=== PATIENT | female | born 1950 | race Caucasian/White ===

== ENCOUNTER 2018-02-24 15:23 | Observation (INO) | payer OTHER, MEDICARE, SELFPAY ==
[2018-02-24] VITALS (18 sets, daily range): BP systolic 73–136; BP diastolic 35–69; PULSE 67–85; RESP 16–20; TEMP 36.5–36.8; O2SAT 94–100; BMI 27.3; BMI 25.4; BMI 25.5
--- NOTE | 2018-02-24 15:39 | EKG12_ITS ---
Test Reason : CP Blood Pressure : / mmHG Vent. Rate : 085 BPM Atrial Rate : 085 BPM P-R Int : 172 ms QRS Dur : 102 ms QT Int : 398 ms P-R-T Axes : 068 030 055 degrees QTc Int : 473 ms Sinus rhythm with frequent Premature ventricular complexes Nonspecific T wave abnormality Prolonged QT Abnormal ECG Confirmed by JUDY LUO, GABRIELLE ([id number]), supervising film or videotape editor MEJIA MAK ([id number] on 02/28/2018 2:47:10 PM Referred By: SOFIA/LA Confirmed By:GABRIELLE KIM MD
--- NOTE | 2018-02-24 15:41 | RAD_ITS ---
STUDY: X-RAY CHEST REASON FOR EXAM: Female, 67 years old. Acute chest pain TECHNIQUE: Single AP portable view of the chest. COMPARISON: 2011 FINDINGS: EKG leads overlie the chest The lungs are clear and expanded. There is no demonstrated pleural abnormality. Normal size heart. Normal mediastinum and kaitlin. Normal visualized pulmonary arteries. Normal visualized aortic arch and descending thoracic aorta. Normal visualized thoracic spine. Normal visualized ribs, clavicles, and shoulders. There is no demonstrated abnormality of the visualized soft tissue structures of the upper abdomen. RAD/Chest 1 View (Portable) IMPRESSION: Normal x-ray examination of the chest. Electronically Signed: Tonny Van MD at 17:02 EST , Service support ,
--- NOTE | 2018-02-24 15:42 | ED.VISSUMM ---
- ER Visit Summary Date of Service: 02/24/18 Chief Complaint: [Chest pain] History of Present Illness: The patient is a 67 F [presents to the emergency department complaint of chest pain that started about an hour ago. 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 Patient went outside and vomited and then developed pressure in her chest. EMS was called who gave her aspirin and a nitro which seemed to resolve her pain initially. On arrival the emergency department patient states that the pain starting to come back and she feels it more underneath her left armpit. She denies any radiation to the neck or jaw. Denies any abdominal pain currently. Patient states that she has had some recent illness and that she was vomiting 3 days ago and yesterday had diarrhea. Patient denies any recent travel or surgery. She has no cardiac history. Patient has a history of high cholesterol no other medical problems.] Physical Examination: [HEENT-PERRLA, EOMI. Cranial nerves II through XII grossly intact. TMs clear. Mucous membranes moist. No adenopathy. Cardiovascular-regular rate and rhythm without murmur or ectopy Lungs-clear to auscultation, chest wall stable without crepitus or subcu emphysema Abdomen-normoactive bowel sounds, soft, nontender, no rebound or rigidity, no peritoneal signs. Extremities-intact ?4, normal range of motion, normal pulses, atraumatic] Test Results: [EKG obtained arrival shows sinus rhythm with a ventricular rate of 85 bpm with some nonspecific ST changes as well as occasional PVCs noted. Patient had a prolonged QT noted.] CBC with differential was normal. Chemistries were normal. LFTs were normal. Lipase was 111. Troponin was less than 0.015. D-dimer was slightly elevated 0.50. Lactate was normal at 0.8. Chest x-ray was unremarkable. CTA of the chest showed no PE or dissection. CT scan of the abdomen pelvis with IV contrast showed an ileus with some dilated hepatic and dilated pancreatic ducts which may be related to prior cholecystectomy. Patient was noted to have an ileus. Emergency Department Course and Treatment: [Patient initially medicated with morphine and Zofran. She continued complaint of pain and repeat EKG obtained showed normal sinus rhythm with nonspecific ST changes and is unchanged from the first EKG. Patient continues to complain of nausea and intermittent discomfort in her abdomen and her chest both.] Treatment Plan: [Admit for further workup and evaluation] Disposition: [Admit] Impression: [Chest pain-etiology uncertain Ileus] This note was generated with [employer] dictation software. It may contain incorrect words, spelling, and punctuation that were not noted in review of the chart prior to signing ED Disposition - Plan for ED Patient: Chief Complaint: Chest Pain Referrals: Shimon Potts MD [Primary Care Provider] -
[2018-02-24] MEDS: 0.9% Normal Saline 1,000 ML 150 ML IV (15:50)
[2018-02-24 16:06] LABS: Absolute Lymphocyte Count 1.08 X10^3/ul (0.83-4.51); Absolute Neutrophil Count 7.2 X10^3/uL (2.0-7.7); Basophil# 0.02 X10^3/uL; Basophil% 0.2 % (0-1); Eosinophil# 0.05 X10^3/uL; Eosinophils% 0.5 % (0-5); Hematocrit 40.2 % (37-47); Hemoglobin 13.3 g/dl (12.0-15.0); Lymphocyte # 1.08 X10^3/ul (4.0); Lymphocyte % 11.8 % (19-41); Mean Corp Hgb Conc 33.1 g/gl (32-36); Mean Corpuscular Hgb 30.9 pg (27.0-32.0); Mean Corpuscular Volume 93.3 fL (81-99); Mean Platelet Vol. 10.2 fl (6.2-12.0); Monocyte# 0.82 X10^3/uL; Neutrophil # 7.15 X10^3/uL (2.7-7.7); Neutrophil % 78.3 % (47-70); Platelet Count 304 K/mm3 (150-450); RBC Distribution Width CV 12.2 % (11.6-14.6); Red Blood Count 4.31 M/mm3 (4.2-5.4); White Blood Count 9.1 K/mm3 (4.4-11.0)
[2018-02-24 16:07] LABS: POSITIVE COUNT NO; POSITIVE DIFFERENTIAL NO; POSITIVE MORPHOLOGY NO
--- NOTE | 2018-02-24 16:07 | EKG12_ITS ---
Test Reason : REPEAT-CP Blood Pressure : / mmHG Vent. Rate : 085 BPM Atrial Rate : 085 BPM P-R Int : 164 ms QRS Dur : 102 ms QT Int : 398 ms P-R-T Axes : 073 034 055 degrees QTc Int : 473 ms Sinus rhythm with Premature supraventricular complexes and with occasional Premature ventricular comp lexes Nonspecific T wave abnormality Prolonged QT Abnormal ECG Confirmed by JUDY LUO, GABRIELLE ([id number]), food editor MEJIA MAK ([id number] on 02/28/2018 2:47:28 PM Referred By: SOFIA Confirmed By:GABRIELLE KIM MD
[2018-02-24] MEDS: Nitroglycerin Oint 1 INCH PACKET TRANSDERM. (16:11)
[2018-02-24 16:17] LABS: Anion Gap 9 (5-15); BUN 17 mg/dL (7-18); BUN/Creat Ratio 21.9 RATIO (10-20); Calcium,Total 8.9 mg/dL (8.5-10.1); Chloride 106 mmol/L (98-107); Creatinine, Serum 0.78 mg/dL (0.55-1.02); EST Glomerular Filtration Rate 79 mL/min (>60); Est Glom Filt Rate - Afr Amer 96 mL/min (>60); Estimated Creatinine Clearance 69.93 ml/min; Glucose 94 mg/dL (74-106); Lipase 111 U/L (73-393); Potassium 3.9 mmol/L (3.5-5.1); Sodium Level 140 mmol/L (136-145)
[2018-02-24] MEDS: Morphine 4 MG/ML Syringe IV (16:18)
[2018-02-24] MEDS: Ondansetron 4 MG/2 ML Vial IV (16:19)
--- NOTE | 2018-02-24 16:28 | CT_ITS ---
STUDY: CTA CHEST REASON FOR EXAM: Female, 67 years old. Sudden onset of chest and abdominal pain RADIATION DOSAGE (If Supplied By Facility): CTDIvol = ( 14.19 ) mGy, DLP = ( 1130.84 ) mGycm TECHNIQUE: The examination was performed with the intravenous administration of 75mL ml of Isovue 370 contrast material. Post-processing of the angiographic images was performed, with multiplanar reformation and 3D reconstruction. Individualized dose optimization techniques were used for this CT. COMPARISON: None. FINDINGS: Normal enhancement of the main pulmonary artery and right and left pulmonary arteries. Normal enhancement of the bilateral peripheral pulmonary arteries. There is no demonstrated pulmonary embolism. Normal thoracic aorta and visualized great vessels. There is no demonstrated aortic dissection. Normal heart and pericardium. Normal mediastinum. Normal hilar regions. Normal visualized trachea and bronchi. The lungs are well expanded. Chronic interstitial changes in both lung park with dependent atelectasis. No superimposed acute pulmonary process. Normal pleura. Normal chest wall structures. There are degenerative changes of thoracic spine. Normal visualized upper abdomen. CT/CTA Chest W/WO Contrast IMPRESSION: No demonstrated PE, or thoracic aortic aneurysm or dissection Chronic interstitial changes in both lung park with dependent atelectasis. No organized infiltrate or effusion Electronically Signed: Tonny Van MD at 17:34 EST , Service support ,
--- NOTE | 2018-02-24 16:29 | CT_ITS ---
STUDY: CT ABDOMEN AND PELVIS WITH CONTRAST REASON FOR EXAM: Female, 67 years old. Sudden onset of chest and abdominal pain RADIATION DOSAGE (If Supplied By Facility): CTDIvol = ( 14.19 ) mGy, DLP = ( 1130.84 ) mGycm TECHNIQUE: Transaxial images were obtained from the dome of the diaphragm to the symphysis pubis without oral contrast. 75mL ml of Isovue 370 contrast was administered. Sagittal and coronal images were reconstructed. Individualized dose optimization techniques were used for this CT. COMPARISON: None. FINDINGS: Liver shows no discrete lesion. Previous cholecystectomy. There is intra and extrahepatic biliary dilatation as well as mild dilatation of the pancreatic duct. However, there is no discrete lesion within the head of the pancreas. The amount of dilatation of the biliary tree could be explained by the previous cholecystectomy. However, if the patient is jaundiced or has elevated bilirubin, a lesion in the head of pancreas or in the ampulla of Vater is to be excluded. MRCP could be used for evaluation.. Normal spleen. No discrete lesion noted within the pancreas or is no peripancreatic inflammation. Normal bilateral adrenal glands. Normal right kidney. Normal left kidney. There is a simple 1.5 cm right renal cyst Normal visualized stomach. Multiple nondistended fluid-filled small bowel loops are noted consistent with ileus. There are multiple colonic diverticula consistent with diverticulosis. The appendix is visualized and appears normal. Appendix best seen on coronal recon image 36. Normal abdominal aorta. Normal inferior vena cava. There are scattered subcentimeter mesenteric and retroperitoneal lymph nodes. Normal urinary bladder. Normal abdominal wall. There are diffuse degenerative changes of the visualized lumbar spine, and pelvis. There is a grade 1 spondylolisthesis at L4-5. CT/Abdomen/Pelvis W IV Cont ONLY IMPRESSION: There has been a previous cholecystectomy. However, there is a significant amount of intra and extrahepatic biliary dilatation. This may be due to the previous cholecystectomy but if the patient is jaundiced or has elevated bilirubin a lesion in the head of the pancreas or ampulla of Vater is to be excluded. MRCP could be performed for evaluation. On coronal recon image 49/111 there is abrupt cut off of the common bile duct at the ampulla of Vater. There are scattered subcentimeter mesenteric and retroperitoneal lymph nodes Colonic diverticulosis 1.5 cm right renal cyst Normal appendix visualized. Degenerative bony changes Electronically Signed: Tonny Van MD at 17:40 EST , Service support ,
[2018-02-24] MEDS: Metoclopramide 10 MG/2 ML Vial IV (17:41)
[2018-02-24 18:09] LABS: Lactic Acid 0.8 mmol/L (0.4-2.0)
[2018-02-24 18:15] LABS: AST(SGOT) 27 U/L (15-37); Alanine Aminotransfer ALT/SGPT 34 U/L (13-56); Albumin, Serum 3.9 g/dL (3.2-5.0); Alkaline Phosphatase 65 U/L (45-117); Bilirubin, Direct 0.11 mg/dL (0.00-0.30); Globulin 3.4 g/dL (2.2-4.2); Protein, Total 7.3 g/dL (6.4-8.2)
--- NOTE | 2018-02-24 18:26 | PCM.HP.STD ---
<Sofya Ruiz - Last Filed: 02/24/18 18:49> Problem List (1) Chest pain Status: Acute History of Present Illness Date of Admission: 02/24/18 Chief Complaint: Chest pain. The patient is a 67 year old F who presents emergency room due to chest pain. 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 She then reports she developed nausea and vomiting, diaphoresis. Chest pain located across her chest extending to left breast area. She denies radiation of pain to neck or arm. Denies shortness of breath. She denies past medical history. She does report her mother and father both had heart disease with CABG in their 60s. Denies history of tobacco use. Past Medical History Allergies No Known Allergies Allergy (Verified 02/24/18 15:29) Home Medications: Ambulatory Orders Medication Instructions Recorded Multivitamins,Therapeutic 1 tablet PO DAILY 07/20/13 [Multivitamin] Caltrate 1 tab PO DAILY 02/24/18 L. 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 Denies: Edema, Palpitations, Syncope Respiratory: Denies: Cough, Shortness of breath at rest, Sputum production Gastrointestinal: Reports: Nausea, Vomiting. Denies: Abdominal Pain Genitourinary: Denies: Dysuria Musculoskeletal: Denies: Joint Pain, Joint Tenderness Skin: Denies: Rash, Wounds Neurological: Denies: Numbness, Tingling, Focal weakness Psychiatric: Denies: Anxiety, Depression, Homicidal Ideations, Suicidal Ideations Hematologic/ Lymphatic: Denies: Easy Bruising, Easy Bleeding VTE Information - Inpt Only VTE Present on Admission: No VTE Mechan Device Prophylaxis: None VTE Pharm Prophylaxis ordered?: Yes Patient Problems: Active and Suspected Problems Chest pain (Acute) - Physical Exam General: Alert, Oriented x3, Cooperative HEENT: Atraumatic, PERRLA, EOMI, Normocephalic Neck: Supple, No JVD, Negative Carotid Bruits Lungs: Clear to auscultation, Normal air movement Cardiovascular: Regular rate, Regular Rhythm, Normal S1, Normal S2, No murmurs Abdomen: Bowel Sounds Present, Soft, Non Tender, Non-Distended Extremities: No clubbing, No cyanosis, No edema, Capillary Refill Less than 3 Seconds Skin: No rashes, No breakdown Musculoskeletal: No Tenderness to Palpation of Joints or Extremities Neurological: Cranial nerves II-XII grossly intact, Neuro grossly intact Psych/Mental Status: Normal Affect, Appropriate Vital Signs Temp Pulse Resp BP Pulse Ox 98.1 F 75 18 113/51 L 98 02/24/18 15:24 02/24/18 18:08 02/24/18 18:08 02/24/18 18:08 02/24/18 18:08 Oxygen Flow Rate (L/min) 2 Oxygen Delivery Method Room Air Weight: 175 lb 0.752 oz Body Mass Index (BMI) 27.3 Laboratory Tests Past 24 Hrs 02/24/18 02/24/18 02/24/18 15:55 15:55 15:55 WBC 9.1 RBC 4.31 Hgb 13.3 Hct 40.2 MCV 93.3 MCH 30.9 MCHC 33.1 RDW 12.2 RDW Differential 41.0 Plt Count 304 MPV 10.2 Immature Gran % (Auto) 0.200 Neut % (Auto) 78.3 H Lymph % (Auto) 11.8 L [place] % (Auto) 9.0 Eos % (Auto) 0.5 Baso % (Auto) 0.2 Absolute Neuts (auto) 7.2 Absolute Lymphs (auto) 1.08 Total Counted Not Reportable D-Dimer Quant (PE/DVT) 0.50 H Sodium 140 Potassium 3.9 Chloride 106 Carbon Dioxide 25.0 Anion Gap 9 BUN 17 Creatinine 0.78 Estim Creat Clear Calc 69.93 Est GFR (MDRD) Af Amer 96 Est GFR (MDRD) Non-Af 79 BUN/Creatinine Ratio 21.9 H Glucose 94 Lactic Acid Calcium 8.9 Total Bilirubin Direct Bilirubin AST ALT Alkaline Phosphatase Troponin I < 0.015 Total Protein Albumin Globulin Lipase 111 12/06/18 12/06/18 15:55 17:40 WBC RBC Hgb Hct MCV MCH MCHC RDW RDW Differential Plt Count MPV Immature Gran % (Auto) Neut % (Auto) Lymph % (Auto) Grimes % (Auto) Eos % (Auto) Baso % (Auto) Absolute Neuts (auto) Absolute Lymphs (auto) Total Counted D-Dimer Quant (PE/DVT) Sodium Potassium Chloride Carbon Dioxide Anion Gap BUN Creatinine Estim Creat Clear Calc Est GFR (MDRD) Af Amer Est GFR (MDRD) Non-Af BUN/Creatinine Ratio Glucose Lactic Acid 0.8 Calcium Total Bilirubin 0.30 Direct Bilirubin 0.11 AST 27 ALT 34 Alkaline Phosphatase 65 Troponin I Total Protein 7.3 Albumin 3.9 Globulin 3.4 Lipase Assessment/Plan All Active Problems Chest pain (Acute) 1. Chest pain-rule out ACS. EKG with nonspecific ST changes, PVCs. D-dimer slightly elevated. CTA negative for PE or dissection. CT of abdomen and pelvis showed ileus. Chest x-ray unremarkable. Troponin negative x1. Cycle enzymes. Repeat EKG in a.m. Nuclear stress test in a.m. FLP in am. 2. Ileus-as noted on CT. n.p.o. IV fluids. Zofran as needed for nausea. IV protonix. DVT prophylaxis- Lovenox sc This patient was seen by FEDERICA Farias under the supervision of Dr. Lieberman. <Linda Lieberman - Last Filed: 02/24/18 19:53> History of Present Illness The patient is a 67 year old F [] Past Medical History Allergies No Known Allergies Allergy (Verified 02/24/18 15:29) - Physical Exam Vital Signs Temp Pulse Resp BP Pulse Ox 97.7 F L 74 16 103/67 94 02/24/18 19:45 02/24/18 19:45 02/24/18 19:45 02/24/18 19:49 02/24/18 19:45 Oxygen Flow Rate (L/min) 2 Oxygen Delivery Method Room Air Weight: 175 lb 0.752 oz Body Mass Index (BMI) 27.3 Laboratory Tests Past 24 Hrs 02/24/18 02/24/18 02/24/18 15:55 15:55 15:55 WBC 9.1 RBC 4.31 Hgb 13.3 Hct 40.2 MCV 93.3 MCH 30.9 MCHC 33.1 RDW 12.2 RDW Differential 41.0 Plt Count 304 MPV 10.2 Immature Gran % (Auto) 0.200 Neut % (Auto) 78.3 H Lymph % (Auto) 11.8 L Grimes % (Auto) 9.0 Eos % (Auto) 0.5 Baso % (Auto) 0.2 Absolute Neuts (auto) 7.2 Absolute Lymphs (auto) 1.08 Total Counted Not Reportable D-Dimer Quant (PE/DVT) 0.50 H Sodium 140 Potassium 3.9 Chloride 106 Carbon Dioxide 25.0 Anion Gap 9 BUN 17 Creatinine 0.78 Estim Creat Clear Calc 69.93 Est GFR (MDRD) Af Amer 96 Est GFR (MDRD) Non-Af 79 BUN/Creatinine Ratio 21.9 H Glucose 94 Lactic Acid Calcium 8.9 Total Bilirubin Direct Bilirubin AST ALT Alkaline Phosphatase Troponin I < 0.015 Total Protein Albumin Globulin Lipase 111 02/24/18 02/24/18 15:55 17:40 WBC RBC Hgb Hct MCV MCH MCHC RDW RDW Differential Plt Count MPV Immature Gran % (Auto) Neut % (Auto) Lymph % (Auto) Grimes % (Auto) Eos % (Auto) Baso % (Auto) Absolute Neuts (auto) Absolute Lymphs (auto) Total Counted D-Dimer Quant (PE/DVT) Sodium Potassium Chloride Carbon Dioxide Anion Gap BUN Creatinine Estim Creat Clear Calc Est GFR (MDRD) Af Amer Est GFR (MDRD) Non-Af BUN/Creatinine Ratio Glucose Lactic Acid 0.8 Calcium Total Bilirubin 0.30 Direct Bilirubin 0.11 AST 27 ALT 34 Alkaline Phosphatase 65 Troponin I Total Protein 7.3 Albumin 3.9 Globulin 3.4 Lipase Assessment/Plan Patient seen and examined by Sofya Ruiz under my supervision. Patient was admitted with complaint of chest pain which started around in his office. Chest pain was left-sided and radiated to underneath her breast and her back. It is a cramping rated at its worst 10 out of 10. She denied any assisted lightheadedness or dizziness or palpitations. She had had concomitant diarrhea a few days prior to admission. She denied any fever or chills, and cough or chest pain, shortness of breath, pain, nausea or vomiting. Patient looks very uncomfortable during review. Close inquiry, she denied any history of long distance travel and never had any clots. Her brother however had a history of clots and had been on Coumadin lifelong. She did not know the indication for the clots. I spoke to her brother on phone who stated that he had a history of numerous autoimmune conditions and also had MT HFR gene mutation for which his snow removal/plowing had told him he needed to be on Coumadin for the rest of his life. Review of systems otherwise negative. o/e: Vital Signs Height 5 ft 8 in Weight: 167 lb 12.348 oz Weight in Pounds 167.8 lbs Pulse Ox 94 Temperature 97.7 F Pulse Rate 74 Respiratory Rate 16 Blood Pressure [BP] 103/67 Blood Pressure 97/68 Blood Pressure Position [BP] Semi-Fowlers Blood Pressure Position Semi-Fowlers General: Alert, Oriented x3, Cooperative; looks very uncomfortable HEENT: Atraumatic, PERRLA, EOMI, Normocephalic Neck: Supple, No JVD, Negative Carotid Bruits Lungs: Clear to auscultation, Normal air movement Cardiovascular: Regular rate, Regular Rhythm, Normal S1, Normal S2, No murmurs Abdomen: Bowel Sounds Present, Soft, Non Tender, Non-Distended Extremities: No clubbing, No cyanosis, No edema, Capillary Refill Less than 3 Seconds Skin: No rashes, No breakdown Musculoskeletal: No Tenderness to Palpation of Joints or Extremities Neurological: Cranial nerves II-XII grossly intact, Neuro grossly intact Psych/Mental Status: Normal Affect, Appropriate, looks uncomfortable Plan will be to admit to PCU with telemetry under observation. CT of the abdomen done showed ileus which is likely due to for diarrhea. EKG showed no acute ST changes and initial troponin was negative. CT angiogram of the chest done was negative for any PE. To keep n.p.o. for now and hydrate with IV fluids. For stress test tomorrow. We will cycle troponins. Rest of management as per Sofya Ruiz ACCORDION REPAIRER-C's above note, assessment and plan which I have reviewed and agree with. Code Visit OBSV E&M: 43661 Initial observation care L3
[2018-02-24] MEDS: Acetaminophen 325 MG Tablet 650 MG PO (20:56)
[2018-02-24] MEDS: Atorvastatin Calcium 10 MG Tablet PO (22:25)
[2018-02-25] MEDS: 0.9% Normal Saline 1,000 ML 150 ML IV ×2 (00:09→05:59)
[2018-02-25] MEDS: Acetaminophen 325 MG Tablet 650 MG PO ×2 (01:09→05:58)
[2018-02-25 03:01] VITALS: PULSE 69
[2018-02-25 04:20] VITALS: BP 103/55; PULSE 75; RESP 16; TEMP 36.8; O2SAT 95
[2018-02-25 04:28] VITALS: O2SAT 94
--- NOTE | 2018-02-25 05:55 | EKG12_ITS ---
Test Reason : AM EKG Blood Pressure : / mmHG Vent. Rate : 072 BPM Atrial Rate : 072 BPM P-R Int : 182 ms QRS Dur : 106 ms QT Int : 432 ms P-R-T Axes : 075 050 046 degrees QTc Int : 473 ms Sinus rhythm with Premature supraventricular complexes and with occasional Premature ventricular comp lexes Otherwise normal ECG When compared with ECG of 24-FEB-2018 15:59, MANUAL COMPARISON REQUIRED, DATA IS UNCONFIRMED Confirmed by JUDY LUO, GABRIELLE ([id number]), scientific editor MEJIA MAK ([id number]) on 02/28/2018 2:53:29 PM Referred By: DR JENNINGS Confirmed By:GABRIELLE KIM MD
[2018-02-25] MEDS: Aspirin E.C. 81 MG Tablet PO (05:58)
[2018-02-25 06:56] LABS: Absolute Lymphocyte Count 1.52 X10^3/ul (0.83-4.51); Absolute Neutrophil Count 2.2 X10^3/uL (2.0-7.7); Basophil# 0.02 X10^3/uL; Basophil% 0.4 % (0-1); Eosinophil# 0.04 X10^3/uL; Eosinophils% 0.9 % (0-5); Hematocrit 33.1 % (37-47); Hemoglobin 11.1 g/dl (12.0-15.0); Lymphocyte # 1.52 X10^3/ul (4.0); Lymphocyte % 33.6 % (19-41); Mean Corp Hgb Conc 33.5 g/gl (32-36); Mean Corpuscular Hgb 31.3 pg (27.0-32.0); Mean Corpuscular Volume 93.2 fL (81-99); Mean Platelet Vol. 9.9 fl (6.2-12.0); Monocyte# 0.74 X10^3/uL; Monocyte% 16.4 % (0-10); Neutrophil % 48.7 % (47-70); Platelet Count 256 K/mm3 (150-450); RBC Distribution Width CV 12.2 % (11.6-14.6); RBC Distribution Width SD 41.7 fl (35.1-43.9); Red Blood Count 3.55 M/mm3 (4.2-5.4); White Blood Count 4.5 K/mm3 (4.4-11.0)
[2018-02-25 06:57] LABS: POSITIVE COUNT NO; POSITIVE DIFFERENTIAL NO; POSITIVE MORPHOLOGY NO
[2018-02-25 07:04] LABS: International Normalized Ratio 1.1; Partial Thromboplast Time 31.7 Seconds (24.1-36.2); Prothrombin Time (Protime)PT. 13.9 SECONDS (11.7-14.9)
[2018-02-25 07:13] VITALS: PULSE 63
[2018-02-25 07:20] LABS: Anion Gap 8 (5-15); BUN 12 mg/dL (7-18); BUN/Creat Ratio 20.4 RATIO (10-20); Calcium,Total 7.7 mg/dL (8.5-10.1); Chloride 112 mmol/L (98-107); Cholesterol 135 mg/dL (200); Creatinine, Serum 0.59 mg/dL (0.55-1.02); EST Glomerular Filtration Rate 109 mL/min (>60); Est Glom Filt Rate - Afr Amer 132 mL/min (>60); Glucose 84 mg/dL (74-106); High Density Lipoprotein 47 mg/dL; Potassium 3.9 mmol/L (3.5-5.1); Sodium Level 142 mmol/L (136-145); Triglycerides 57 mg/dL; Very Low Density Lipoprotein 11 mg/dL (5-40)
[2018-02-25 08:43] VITALS: BP 112/58; PULSE 67; RESP 16; TEMP 37; O2SAT 96
[2018-02-25 10:07] LABS: Magnesium 1.9 mg/dL (1.6-2.6)
--- NOTE | 2018-02-25 11:04 | STRESSREP ---
Stress Test Report Exercise myocardial perfusion stress test. 67-year-old lady with a history of chest pain. Stress protocol. Resting EKG demonstrates normal sinus rhythm with rate of 60 bpm normal intervals are noted resting blood pressure 106/60 mmHg. The patient exercised according to the regular Jamie protocol for a total duration of 6 minutes. The maximum heart rate attained was 139 bpm which was 89% of maximum predicted heart rate. Patient completed stage II of the Jamie protocol. The maximum workload was 7 metabolic equivalents. At rest there were no ST or T wave changes noted suggest ischemia at peak exercise upsloping ST changes only were noted with normally the criteria for ischemia. No clinical angina was noted the patient was noted to be short of breath. Resting blood pressure 106/60 with a peak blood pressure 148/72 mmHg. Myocardial perfusion protocol. 11.6 mCi of technetium 99m sestamibi was injected at rest. The patient exercised according to regular Jamie protocol for 6 minutes at peak exercise 36.0 mCi of technetium 99m sestamibi was injected stress images were obtained stress and rest images were reconstructed and compared in the short axis vertical long horizontal long axis. Gated images were also obtained Perfusion SPECT analysis: Review of the stress images demonstrate normal uptake of tracer noted in all areas of the myocardium. The resting images similarly demonstrate normal uptake of tracer noted in all areas of the myocardium. No areas of reversibility are noted suggest ischemia no previous infarct is noted. Gated SPECT analysis: The gated ejection fraction is noted to be 67%. Conclusion: Normal exercise myocardial perfusion stress test at a moderate workload. Preserved ejection fraction.
--- NOTE | 2018-02-25 11:28 | DCINST_ITS ---
- Discharge Diagnoses Current Active Problems: Current Active and Chronic Problems Chest pain (Acute) You will use the following diet at home:: No restrictions Discharge Activity: Return to Normal Activity Call your doctor if you observe: Inability to have a bowel movement, Shortness of breath, Dizziness, Fainting spells, Chest pain Allergies/Adverse Reactions: Allergies No Known Allergies Allergy (Verified 02/24/18 15:29) Medications to take at Discharge Multivitamins,Therapeutic [Multivitamin] 1 tablet PO DAILY 07/20/13 Caltrate 1 tab PO DAILY 02/24/18 L. Acidophilus/Pectin, [place] [Acidophilus-Pectin Captab] 1 each PO DAILY 02/24/18 Primary Care Physician: Shimon Potts MD [Primary Care Provider] - Please follow up with your Primary Care Physician in: 1 Week Test Results: Test results from this visit will be discussed in further detail at your follow- up appointment, if applicable. Please Follow Up With: Tam Hay MD When: 1-2 Weeks Proposed Discharge Date: 02/25/18
--- NOTE | 2018-02-25 11:30 | PCM.DC.SUM ---
Discharge Date and Diagnosis Date of Admission: 02/24/18 Date of Discharge: 02/25/18 - Primary Discharge Diagnosis Active and Suspected Problems 1. Atypical chest pain, ACS ruled out 2. Ileus Hospital Course and Treatment Imaging Results: Diagnostic Data Chest X-Ray 02/24/18 15:41 IMPRESSION: Normal x-ray examination of the chest. Electronically Signed: Tonny Van MD at 17:02 EST , Service support , Chest CTA 02/24/18 16:28 IMPRESSION: No demonstrated PE, or thoracic aortic aneurysm or dissection Chronic interstitial changes in both lung park with dependent atelectasis. No organized infiltrate or effusion Electronically Signed: Tonny Van MD at 17:34 EST , Service support , Abdomen/Pelvis CT 02/24/18 16:29 IMPRESSION: There has been a previous cholecystectomy. However, there is a significant amount of intra and extrahepatic biliary dilatation. This may be due to the previous cholecystectomy but if the patient is jaundiced or has elevated bilirubin a lesion in the head of the pancreas or ampulla of Vater is to be excluded. MRCP could be performed for evaluation. On coronal recon image 49/111 there is abrupt cut off of the common bile duct at the ampulla of Vater. There are scattered subcentimeter mesenteric and retroperitoneal lymph nodes Colonic diverticulosis 1.5 cm right renal cyst Normal appendix visualized. Degenerative bony changes Electronically Signed: Tonny Van MD at 17:40 EST , Service support , Operations: None Procedures: Stress test Summary of Care Provided: The patient is a 67 year old F admitted 02/24/2018 due to chest pain. 1. Chest pain-ACS ruled out. EKG with nonspecific ST changes, PVCs. D-dimer slightly elevated. CTA negative for PE or dissection. CT of abdomen and pelvis showed ileus. Chest x-ray unremarkable. Troponin negative x3. Patient underwent nuclear stress test which was negative for ischemia. 2. Ileus-CT of abdomen showed multiple nondistended fluid-filled small bowel loops consistent with ileus. Patient n.p.o. during admission. Abdominal pain resolved. Advance diet as tolerated. Recommend follow-up with primary care physician in 1 week. Also refer to GI, Dr. Hay in 1-2 Weeks. General: Alert, Oriented x3, Cooperative HEENT: Atraumatic, PERRLA, EOMI, Normocephalic Neck: Supple, No JVD, Negative Carotid Bruits Lungs: Clear to auscultation, Normal air movement Cardiovascular: Regular rate, Regular Rhythm, Normal S1, Normal S2, No murmurs Abdomen: Bowel Sounds Present, Soft, Non Tender, Non-Distended Extremities: No clubbing, No cyanosis, No edema, Capillary Refill Less than 3 Seconds Skin: No rashes, No breakdown Musculoskeletal: No Tenderness to Palpation of Joints or Extremities Neurological: Cranial nerves II-XII grossly intact, Neuro grossly intact Psych/Mental Status: Normal Affect, Appropriate Patient seen and examined prior to discharge. Physical assessment as noted above. Patient is stable for discharge with follow up recommendations as noted above. This patient was seen by FEDERICA Farias under the supervision of Dr. Vogt. - Physical Exam Vital Signs Temp Pulse Resp BP Pulse Ox 98.6 F 67 16 112/58 L 96 02/25/18 08:43 02/25/18 08:43 02/25/18 08:43 02/25/18 08:43 02/25/18 08:43 Oxygen Flow Rate (L/min) 2 Oxygen Delivery Method Room Air Weight: 167 lb 12.348 oz Body Mass Index (BMI) 25.4 Intake and Output for Last 24 Hours 02/23/18 02/24/18 02/25/18 23:59 23:59 23:59 Intake Total 840 / 840 936 / 936 Balance 840 / 840 936 / 936 Laboratory Tests Past 24 Hrs 02/24/18 02/24/18 02/24/18 15:55 15:55 15:55 WBC 9.1 RBC 4.31 Hgb 13.3 Hct 40.2 MCV 93.3 MCH 30.9 MCHC 33.1 RDW 12.2 RDW Differential 41.0 Plt Count 304 MPV 10.2 Immature Gran % (Auto) 0.200 Neut % (Auto) 78.3 H Lymph % (Auto) 11.8 L [place] % (Auto) 9.0 Eos % (Auto) 0.5 Baso % (Auto) 0.2 Absolute Neuts (auto) 7.2 Absolute Lymphs (auto) 1.08 Total Counted Not Reportable PT INR APTT D-Dimer Quant (PE/DVT) 0.50 H Sodium 140 Potassium 3.9 Chloride 106 Carbon Dioxide 25.0 Anion Gap 9 BUN 17 Creatinine 0.78 Estim Creat Clear Calc 69.93 Est GFR (MDRD) Af Amer 96 Est GFR (MDRD) Non-Af 79 BUN/Creatinine Ratio 21.9 H Glucose 94 Lactic Acid Calcium 8.9 Magnesium Total Bilirubin Direct Bilirubin AST ALT Alkaline Phosphatase Troponin I < 0.015 Total Protein Albumin Globulin Triglycerides Cholesterol LDL Cholesterol VLDL Cholesterol HDL Cholesterol Lipase 111 02/24/18 02/24/18 02/25/18 15:55 17:40 01:12 WBC RBC Hgb Hct MCV MCH MCHC RDW RDW Differential Plt Count MPV Immature Gran % (Auto) Neut % (Auto) Lymph % (Auto) [place] % (Auto) Eos % (Auto) Baso % (Auto) Absolute Neuts (auto) Absolute Lymphs (auto) Total Counted PT INR APTT D-Dimer Quant (PE/DVT) Sodium Potassium Chloride Carbon Dioxide Anion Gap BUN Creatinine Estim Creat Clear Calc Est GFR (MDRD) Af Amer Est GFR (MDRD) Non-Af BUN/Creatinine Ratio Glucose Lactic Acid 0.8 Calcium Magnesium Total Bilirubin 0.30 Direct Bilirubin 0.11 AST 27 ALT 34 Alkaline Phosphatase 65 Troponin I < 0.015 Total Protein 7.3 Albumin 3.9 Globulin 3.4 Triglycerides Cholesterol LDL Cholesterol VLDL Cholesterol HDL Cholesterol Lipase 02/25/18 02/25/18 02/25/18 03:38 06:35 06:35 WBC 4.5 RBC 3.55 L Hgb 11.1 L Hct 33.1 L MCV 93.2 MCH 31.3 MCHC 33.5 RDW 12.2 RDW Differential 41.7 Plt Count 256 MPV 9.9 Immature Gran % (Auto) 0.000 Neut % (Auto) 48.7 Lymph % (Auto) 33.6 [place] % (Auto) 16.4 H Eos % (Auto) 0.9 Baso % (Auto) 0.4 Absolute Neuts (auto) 2.2 Absolute Lymphs (auto) 1.52 Total Counted Not Reportable PT INR APTT D-Dimer Quant (PE/DVT) Sodium 142 Potassium 3.9 Chloride 112 H Carbon Dioxide 22.0 Anion Gap 8 BUN 12 Creatinine 0.59 Estim Creat Clear Calc 95.90 Est GFR (MDRD) Af Amer 132 Est GFR (MDRD) Non-Af 109 BUN/Creatinine Ratio 20.4 H Glucose 84 Lactic Acid Calcium 7.7 L Magnesium Total Bilirubin Direct Bilirubin AST ALT Alkaline Phosphatase Troponin I < 0.015 Total Protein Albumin Globulin Triglycerides 57 Cholesterol 135 LDL Cholesterol 77 VLDL Cholesterol 11 HDL Cholesterol 47 Lipase 02/25/18 02/25/18 02/25/18 06:35 06:35 06:35 WBC RBC Hgb Hct MCV MCH MCHC RDW RDW Differential Plt Count MPV Immature Gran % (Auto) Neut % (Auto) Lymph % (Auto) [place] % (Auto) Eos % (Auto) Baso % (Auto) Absolute Neuts (auto) Absolute Lymphs (auto) Total Counted PT 13.9 INR 1.1 APTT 31.7 D-Dimer Quant (PE/DVT) Sodium Potassium Chloride Carbon Dioxide Anion Gap BUN Creatinine Estim Creat Clear Calc Est GFR (MDRD) Af Amer Est GFR (MDRD) Non-Af BUN/Creatinine Ratio Glucose Lactic Acid Calcium Magnesium 1.9 Total Bilirubin Direct Bilirubin AST ALT Alkaline Phosphatase Troponin I < 0.015 Total Protein Albumin Globulin Triglycerides Cholesterol LDL Cholesterol VLDL Cholesterol HDL Cholesterol Lipase Discharge Diet: Light diet - advance as tolerated Discharge Activity: Return to Normal Activity Call your doctor if you observe: Inability to have a bowel movement, Shortness of breath, Dizziness, Fainting spells, Chest pain Home Medications: Medications to take at Discharge Multivitamins,Therapeutic [Multivitamin] 1 tablet PO DAILY 07/20/13 Caltrate 1 tab PO DAILY 02/24/18 L. Acidophilus/Pectin, [place] [Acidophilus-Pectin Captab] 1 each PO DAILY 02/24/18 Primary Care Physician: Shimon Potts MD [Primary Care Provider] - Please follow up with your Primary Care Physician in: 1 Week Please Follow Up With: Tam Hay MD When: 1-2 Weeks Disposition: Home Minutes spent on discharge:: 35 Patient Condition:: Stable Medical Necessity - Tobacco Use Smoking Status: Never smoker Meaningful Use Info Meaningful Use Diagnoses (Choose all that apply): None applicable
[2018-02-25 13:46] VITALS: BP 104/50; PULSE 93; RESP 15; TEMP 36.8; O2SAT 94
== END 2018-02-25 11:27 | disposition home or self-care (01) ==
LOC: ED 16:17 → PCU 18:42
PROVIDERS: Nurse Practitioner Family; Admitting Provider Student in an Organized Health Care Education/Training Program; Emergency Provider Emergency Medicine; Family Provider Family Medicine; PCP Family Medicine; Visit Provider Family Medicine
DX: R07.89 Other chest pain (principal); I45.81 Long QT syndrome; K56.7 Ileus, unspecified
CPT/HCPCS: 36415; 71045; 71275; 74177; 78452; 80048; 80061; 80076; 83605; 83690; 83735; 84484; 85025; 85379; 85610; 85730; 93005; 93017; 96361; 96365; 96366; 96375; 99218; 99285; A9500; J7030; Q9967; A4216; G0378; J2405; J2785

== ENCOUNTER → 2018-03-08 14:05 | Outpatient (CLI) | payer OTHER, SELFPAY ==
[2018-02-24 19:50] VITALS: BMI 25.4
[2018-03-08 15:02] LABS: CRP < 2.90 mg/L (0.0-3.0); Lipase 183 U/L (73-393)
--- OUTSIDE RECORDS SUMMARY | 2018-06-10 01:47 | XMS RPT_ITS ---
:1950 Author Organization [facility] Support Name Relationship Address Phone WILLIE YOUSSEF Unavailable Unavailable + NITINTENZIN Unavailable Unavailable + WILLIE YOUSSEF Unavailable [address] + [place] [address] R Unavailable Unavailable Unavailable NITIN TENZIN Unavailable Unavailable + WILLIE YOUSSEF Unavailable [address] + [place] [address] R Unavailable Unavailable Unavailable NITIN, TENZIN Unavailable Unavailable + WILLIE YOUSSEF Unavailable [address] + [place] [address] R Unavailable Unavailable Unavailable WILLIE YOUSSEF Unavailable [address] + [place] [address] [employer] Unavailable [address] + [place] [address] Willie Youssef Unavailable [address] + [place] [address] [employer] Unavailable [address] + [place] [address] WILLIE YOUSSEF Unavailable [address] + [place] [address] [employer] Unavailable [address] + [place] [address] NITIN TENZIN Unavailable Unavailable + WILLIE YOUSSEF Unavailable [address] + [place] [address] R Unavailable Unavailable Unavailable WILLIE YOUSSEF Unavailable [address] + [place] [address] [employer] Unavailable [address] + [place] [address] OBRECWILLIE KELLY Unavailable [address] + [place] [address] [employer] Unavailable [address] + [place] [address] Obrecaaron Willie Unavailable [address] + [place] [address] [employer] Unavailable [address] + [place] [address] Care Team Providers Name Role Phone BLANCHE OMER, DR. WARE Attending Unavailable [facility] Employee Attending Unavailable Potts, Shimon Attending Unavailable Potts, Shimon Referring Unavailable Potts, Shimon Primary Care Unavailable Potts, Shimon Attending Unavailable Potts, Shimon Referring Unavailable Potts, Shimon Primary Care Unavailable Tam Hay Consulting Unavailable Luis Tam Attending Unavailable Koram, Linda Araceli Referring Unavailable Magnolia, Inna Attending Unavailable Potts, Shimon Primary Care Unavailable Farhana, Inna Referring Unavailable Farhana, Inna Attending Unavailable Potts, Shimon Referring Unavailable [facility] Employee Attending Unavailable Potts, Shimon Primary Care Unavailable Koram, Linda Araceli Admitting Unavailable White, Ketty Attending Unavailable Koram, Linda Araceli Admitting Unavailable Potts, Shimon Primary Care Unavailable Koram, Linda Araceli Consulting Unavailable Koram, Linda Araceli Attending Unavailable Koram, Linda Araceli Admitting Unavailable Potts, Shimon Primary Care Unavailable White, Ketty Consulting Unavailable White, Ketty Attending Unavailable PROBLEMS PROBLEMS DATE TYPE CONDITION / CODE ATTENDING STATUS SOURCE 04/11/2018 Unknown Z12.31 - Encounter Inna Delcid Active [place] for screening Community mammogram for Hospital malignant neoplasm Repository of breast / Z12.31(ICD-10) 04/11/2018 Unknown Z01.419 - Encounter Inna Delcid Active [place] for gynecological Community examination Hospital (general) (routine) Repository without abnormal findings / Z01.419(ICD-10) 04/11/2018 Unknown Z12.4 - Encounter Inna Delcid Active [place] for screening for Community malignant neoplasm Hospital of cervix / Repository Z12.4(ICD-10) 04/11/2018 Unknown K83.8 - Other Shimon Potts Active [place] specified diseases Community of biliary tract / Hospital K83.8(ICD-10) Repository 04/08/2018 Unknown R07.9 - Chest pain, White, Ketty Active [place] unspecified / Community R07.9(ICD-10) Hospital Repository PROCEDURES PROCEDURES No Procedure Records FoundRESULTS RESULTS FINAL SURGICAL Observed: 04/11/2018 Status: F Source: [facility] REPORT 11:05 AM [facility] REPOSITORY . Pathology Reports Accession: Collected Date/Time: Received Date/Time: Pathologist: [id number] 04/11/2018 11:05 EST 04/12/2018 09:50 EST MD HUGH QUINTERO Final Surgical Pathology Report DIAGNOSIS: STOMACH, BIOPSY: MILD CHRONIC GASTRITIS. IMMUNOPEROXIDASE STAIN FOR H. PYLORI IS NEGATIVE. COMMENT: [facility] [id number] CLINICAL INFORMATION: Procedure: EGD with biopsies gastric antrum Preoperative diagnosis: abnormal testing, abdominal pain Postoperative diagnosis: same SPECIMEN: A GASTRIC ANTRUM BIOPSIES GROSS DESCRIPTION: Received in formalin labeled gastric antrum biopsies are 2 edwards glistening soft tissues, 0.3 and 0.4 cm. TS -1 Dictated by Daria COSTA ([facility]) MICROSCOPIC DESCRIPTION: Slides reviewed. Electronically Signed by Pathology Report verified by [facility] Electronically signed by HUGH QUINTERO MD Sign out Date: 04/13/2018 16:15 Performing Lab: [facility], [address] [place] [address] Performed By: #### SPFR #### [place] [address] SCREENING MAMM (CAD), Observed: 03/24/2018 Status: F Source: [facility] 10:35 AM [facility] REPOSITORY [facility] Imaging Services [address] [place] [address] SCREENING MAMM (CAD), BILAT MR#: [id number] Acct: [id number] Name: MIKAELDEVANG Rep #: [id number] : 1950 F 67 From: Andrew Yee MD PCP: Shimon Potts MD Status: REG CLI Study: SCREENING MAMM (CAD), BILAT Date of Exam: 03/24/18 Exam# [id number] Ordering Dr: Inna Delcid SAUSAGE LINKER-C MAMMOGRAPHY - BILATERAL SCREENING REASON FOR EXAM: Female, 67 years old. Routine annual screening examination. PERTINENT HISTORY: Mother with breast cancer. TECHNIQUE: Digital bilateral breast darinel (3D mammographic acquisition) in the CC and MLO projections. 2-D mediolateral oblique (MLO) and craniocaudad (CC) views of both breasts were obtained. CAD: Full Field Digital Mammography with Computer Added Detection was performed. COMPARISON: Comparison is made with prior examination dated September 23, 2016. FINDINGS: Breast Composition: There are scattered areas of fibroglandular density. There are no dominant masses or suspicious calcifications. No other significant abnormalities are identified. There has been no significant change since the prior study. BI/SCREENING MAMM (CAD), BILAT IMPRESSION: Stable bilateral screening mammogram. Yearly follow-up mammogram recommended. (A) ASSESSMENT CATEGORY: BIRADS Category 1: Negative. A letter regarding these results will be sent to the patient by the facility within 30 days. Approximately 10% of breast cancers are not detected by mammography. A normal mammogram should not delay biopsy of a clinically suspicious abnormality. 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 [address] [place] [address] OFFICE VISIT Date of Service: 03/24/18 MR#: [id number] Acct: [id number] Name: DEVANG YOUSSEF Rep #: [id number] : 1950 Provider: SILAS Delcid Age/Sex: 67/F [place] [facility] [place] S[place] Intake Vital Signs03/24/18 Body Mass Index (BMI) 25.4 03/24/18 Height 5 ft 5.5 in 03/24/18 Weight: 167 lb 4 oz 03/24/18 Body Mass Index (BMI) 27.3 03/24/18 Blood Pressure 122/78 H Intake Visit Reasons: ANNUAL Rn Field Required: No Is patient in pain?: No Allergies No Known Allergies Allergy (Verified 03/24/18 09:41) Medications Multivitamins,Therapeutic [Multivitamin] 1 tab PO DAILY 07/20/13 [History Confirmed 03/24/18] Caltrate 1 tab PO DAILY 02/24/18 [History Confirmed 03/24/18] L. Acidophilus/Pectin, Winston [Acidophilus-Pectin Captab] 1 ea PO DAILY 02/24/18 [History Confirmed 03/24/18] Is last menstrual period known: No Post menopausal: No Patient : No : No PFSH Surgical History Cholecystectomy planned (Acute) H/O section (Acute) H/O tubal ligation (Acute) Social History Smoking Status: Never smoker Pregancy History 3 Elective abortions Hx Para 3 Spontaneous abortions Past Pregnancies Del. DateName GA/Weeks Outcome Route Bth WeighInfant GeLabor LgtAnesthesiDel LocatProvider FOB t n h a n HPI ANNUAL: Details: DEVANG YOUSSEF is a 67 year old who presents for annual exam. Tenderness near rectum X 2 weeks Last PAP: unsure History of abnormal PAP: no Last mammogram: today History of abnormal mammogram: benign biopsy Colon cancer screening: <10 years Female Reproductive History Questions: Metorrhagia: No, Sexually active: Yes, Dyspareunia: No, PCB: No ROS Const Constitutional: Denies fatigue, weight gain or weight loss Cardio Card: Denies chest pain Resp Resp: Denies cough or shortness of breath with activity GI GI: Denies abdominal pain, constipation, change in stools, vomiting or bloating : Reports as per HPI; denies urinary frequency, pelvic pain, urinary urgency, vaginal discharge, vaginal itching, urinary incontinence or difficulty urinating Exam Const General: cooperative, healthy appearing, no acute distress, well developed Orientation: alert, oriented to person, oriented to place [facility] Head: normal to inspection Neck Neck: normal visual inspection Thyroid: thyroid normal Lymphatic: no lymphadenopathy noted Chest Breast inspection: normal inspection of the breasts, normal inspection of the axillae Breast palpation: normal palpation of the breasts, normal palpation of the axillae, no axillary lymphadenopathy Resp Effort AND Inspection: normal respiratory effort GI Palpation: soft, nontender, no masses Rectal Exam: No mass, visual inspection normal External Female Exam: normal external appearance, normal appearance of the urethra Urethra: normal appearance of the urethra, normal palpation Speculum Exam - Vagina: normal appearance of the vagina, normal vaginal discharge Speculum Exam - Cervix: normal appearance of the cervix Bimanual Exam- Vagina AND Uterus: normal bimanual exam, uterine size normal, uterine shape normal, uterus non-tender Bimanual Exam- Adnexa, other: normal adnexae, no adnexal masses, adnexae non-tender, pelvic support normal Pelvic Support: normal Neuro General: alert, oriented x3 Psych Affect: normal affect Assessment AND Plan Problems 1. Encounter for gynecological examination without abnormal finding Z01.419 2. Pap smear for cervical cancer screening Z12.4 Plan Completed breast and pelvic exam Reviewed diet and exercise Pap thin prep pap with reflex HPV due to medicare guideline Mammogram pending results today Colonoscopy up to date Bone density up to date RTO 1 year, prn with problems Inna Delcid CNP Coding Level of Care Code MC Pelvic/Breast Diagnoses Encounter for gynecological examination without abnormal finding Z01.419 Gynecological examination findings: abnormal findings ABSENT Pap smear for cervical cancer screening Z12.4 03/24/18 1005 <Electronically signed by Inna STALLWORTH> Date Inna STALLWORTH Cosigner Signature: Date (if applicable) CC: PAP I-G W/RFX Collected: 03/24/2018 Status: F Source: [place] HRHPV-APTIMA 9:30 AM [facility] [place] Order Comment: CYTOLOGY INFORMATION: - CLINICAL INFORMATION: - DATE LMP/MENOPAUSE: - COLLECTION VIAL: Thin Prep Vial - ADVERTISING TEACHER SOURCE: CERVICAL - COLLECTION TECHNIQUE: BRUSH/SPATULA Specimen Comment: [id number] Specimen Comment: Source.............Cervix Specimen Comment: No. of containers..01 ThinPrep Vial TYPE CODE TESTS RESULT OUT OF RANGE REFERENCE UNITS LAB L7400.0800 . Normal DIAGN Comment Result Comment: NEGATIVE FOR INTRAEPITHELIAL LESION AND MALIGNANCY. LAB L7400.0900 . Normal ADEQ Comment Result Comment: Satisfactory for evaluation. Endocervical and/or squamous metaplastic cells (endocervical component) are present. LAB L7400.1400 . Normal PERFORM Comment Result Comment: Mya Pfeiffer, Ladle Repairer (ASCP) LAB L7400.2575 . Normal TEST METHOD Comment Result Comment: This liquid based ThinPrep(R) pap test was screened with the use of an image guided system. LAB L7400.2600 . Normal . COMM LAB L7400.2700 . Normal PAPSMR Comment Result Comment: The Pap smear is a screening test designed to aid in the detection of premalignant and malignant conditions of the uterine cervix. It is not a diagnostic procedure and should not be used as the sole means of detecting cervical cancer. Both false-positive and false-negative reports do occur. LAB L7400.2800 . Normal HPV RFLX Comment Result Comment: The HPV DNA reflex criteria were not met with this specimen result therefore, no HPV testing was performed. Performed at: [facility] [id number] [place] Boss: Anny Triana MD, Phone: [phone] Performed By: #### L7400.0353 #### [facility] (refer to report for specific site) refer to report for address and phone number MRCP ABDOMEN WITHOUT Observed: 03/21/2018 Status: F Source: [place] CONTRAST 6:39 AM [facility] [place] Imaging Services [address] [place] [address] MRCP Abdomen without Contrast MR#: [id number] Acct: [id number] Name: DEVANG YOUSSEF Rep #: [id number] : 1950 F 67 From: Hugh Burgos MD PCP: Shimon Potts MD Status: REG CLI Study: MRCP Abdomen without Contrast Date of Exam: 03/21/18 Exam# [id number] Ordering Dr: Shimon Potts MD STUDY: MRI ABDOMEN WITHOUT CONTRAST REASON FOR EXAM: Female, 67 years old. Dilatation of the biliary tract with history of cholecystectomy 1983. TECHNIQUE: Standardized fat and water weighted pulse sequences were obtained in all 3 orthogonal planes. MRCP with 3-D volumetric reformatted images. COMPARISON: CTA chest 02/24/2018, CT abdomen and pelvis 02/24/2018.. FINDINGS: Osseous structures: L4-L5 grade 1 spondylolisthesis, with broad-based disc bulge and facet hypertrophy. Evidence of foraminal narrowing. Lateral recess encroachment. Correlate for symptoms of lumbar radiculopathy. No other significant spondylosis. Body wall soft tissues: No acute process. Inferior chest: No acute process. Spleen: Normal. Adrenal glands: Normal. Pancreas: Normal. No ductal ectasia. Stomach: Normal. Small and large bowel: Evaluated portions are normal. Urinary tract: Small left parapelvic cysts. Minimal right parapelvic cysts. Right renal superior pole cyst measuring 1.3 cm, concordant with benign features seen on CT abdomen and pelvis. Hepatobiliary: Cholecystectomy. Intrahepatic ductal ectasia. The hepatic duct measures up to 10 mm. The common bile duct entering the head of the pancreas measures up to 10 mm. Gradually tapering into the pancreatic head. Slender at the sphincter. No filling the defect. No evidence of choledocholithiasis. On series 10 image 15, MRCP, there appears to be mild prominence of the ampulla measuring about 7 x 4 mm. protruding into the lumen of the duodenum. Similar mild annular protrusion was seen in the coronal images on the recent CT scan of 02/24/2018. On that study the protrusion measured approximately 8 x 5 mm. MRI/MRCP Abdomen without Contrast IMPRESSION: No visible choledocholithiasis. Dilated common bile duct, hepatic duct and intrahepatic biliary tree. Nonspecific prominence of the ampulla slightly protruding into the 2nd portion of duodenum. This may be normal. If occult completely exclude the possibility of a small ampullary neoplasm. The patient would benefit from follow-up ERCP. Electronically Signed: Hugh Burgos MD at 17:54 EST Tel , Service support , CC: Shimon Potts MD; Tam Hay Pie Chef: Signed CBC W/DIFF, AUTOMATED Collected: 03/08/2018 Status: F Source: [place] 8:00 AM [facility] [place] TYPE CODE TESTS RESULT OUT OF RANGE REFERENCE UNITS LAB L100.1000 4.4-11.0 K/mm3 Normal WBC 5.5 LAB L100.1200 4.2-5.4 M/mm3 Normal RBC 4.41 LAB L100.1300 12.0-15.0 g/dl Normal HGB 13.6 LAB L100.1400 37-47 % Normal HCT 41.6 LAB L100.1500 81-99 fL Normal MCV 94.3 LAB L100.1600 27.0-32.0 pg Normal MCH 30.8 LAB L100.1700 32-36 g/gl Normal MCHC 32.7 LAB L100.1810 11.6-14.6 % Normal RDW CV 12.4 LAB L100.1820 35.1-43.9 fl Normal RDW SD 42.5 LAB L100.1900 150-450 K/mm3 Normal PLT 302 LAB L100.2000 6.2-12.0 fl Normal MPV 10.9 LAB L100.2100 47-70 % Normal NEUT% 48.9 LAB L100.2200 19-41 % Normal LY% 34.1 LAB L100.2300 0-10 % High MONO% 12.4 LAB L100.2400 0-5 % Normal EO% 3.1 LAB L100.2500 0-1 % High BASO% 1.3 LAB L100.2550 0.0-0.9 % Normal IM GRAN % 0.200 Result Comment: IG% - Immature Granulocytes (promyelocytes, myelocytes and metamyelocytes) > 1% indicates that a LEFT SHIFT is Present. LAB L100.2620 2.0-7.7 X10 3/uL Normal Absolute Neut 2.7 LAB L100.2720 0.83-4.51 X10 3/ul Normal Absolute Lymph 1.87 Performed By: #### L100.0100 #### [facility] [place], [address] COMPREHENSIVE METABOLIC Collected: 03/08/2018 Status: F Source: [place] [facility] 8:00 AM [facility] TYPE CODE TESTS RESULT OUT OF RANGE REFERENCE UNITS LAB L501.0100 74-106 mg/dL Normal GLU 82 Result Comment: Please note revised GLUCOSE reference range effective 2017. LAB L501.1000 7-18 mg/dL Normal BUN 18 LAB L501.1100 0.55-1.02 mg/dL Normal CREAT,SERUM 0.81 Result Comment: The validity of the calculated GFR AND GFRAA in patients over 70 years has not been determined. Clinical correlation is essential. LAB L501.1110 >60 mL/min Normal EST GFR 75 Result Comment: Non- GFR Calc LAB L501.1115 >60 mL/min Normal EST GFR - AA 91 Result Comment: GFR Calc LAB L501.1300 10-20 RATIO High BUN/CRE 22.1 LAB L501.1500 6.4-8.2 g/dL T Normal PROT 7.6 LAB L501.1800 3.2-5.0 g/dL Normal ALB 4.0 LAB L501.1950 2.2-4.2 g/dL Normal GLOB 3.6 LAB L501.2000 0.9-2.4 RATIO Normal A/G 1.1 LAB L501.2200 8.5-10.1 mg/dL CA Normal 9.0 LAB L501.4100 15-37 U/L Normal AST 23 LAB L501.4305 45-117 U/L Normal ALK P 64 LAB L501.4405 13-56 U/L Normal ALT 34 LAB L501.4600 0.20-1.00 mg/dL T Normal BILI 0.50 LAB L501.5300 136-145 mmol/L NA Normal 143 LAB L501.5600 3.5-5.1 mmol/L K Normal 4.3 LAB L501.5900 98-107 mmol/L CL Normal 106 LAB L501.6100 21.0-32.0 mmol/L Normal CO2 27.0 LAB L501.6200 5-15 Normal GAP 10 Performed By: #### L500.4050 #### [facility] [address] [place], [address] LIPASE Collected: 03/08/2018 Status: F Source: [place] 8:00 AM [facility] TYPE CODE TESTS RESULT OUT OF RANGE REFERENCE UNITS LAB L501.2450 73-393 U/L Normal LIPASE 183 Performed By: #### L501.2450, L501.6710 #### [facility] [address] [place], [address] CRP Collected: 03/08/2018 Status: F Source: [place] 8:00 AM [facility] TYPE CODE TESTS RESULT OUT OF RANGE REFERENCE UNITS LAB L501.6710 0.0-3.0 mg/L Normal < 2.90 C-REACTIVE PROT Result Comment: C-Reactive Protein (CRP) provides useful information for the diagnosis, therapy and monitoring of inflammatory processes and associated diseases. For the evaluation of Relative Risk for Cardiovascular Disease, a High Sensitivity CRP (HSCRP) should be ordered. Performed By: #### L501.2450, L501.6710 #### [facility] [address] [place], [address] EMERGENCY DEPARTMENT Observed: 03/02/2018 Status: F Source: [place] SUMMARY 7:26 AM [facility] Medical Records Department [address] [place] [address] Emergency Department Summary 02/24/18 1542 MR#: [id number] Acct: [id number] Name: DEVANG YOUSSEF Rep #: [id number] : 1950 67 From: Mayelin Shah DO PCP: Delroy LUO,Shimon Status: DIS WOODY - ER Visit Summary Date of Service: 02/24/18 Chief Complaint: [Chest pain] History of Present Illness: The patient is a 67 F [presents to the emergency department complaint of chest pain that started about an hour ago. 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 Patient went outside and vomited and then developed pressure in her chest. EMS was called who gave her aspirin and a nitro which seemed to resolve her pain initially. On arrival the emergency department patient states that the pain starting to come back and she feels it more underneath her left armpit. She denies any radiation to the neck or jaw. Denies any abdominal pain currently. Patient states that she has had some recent illness and that she was vomiting 3 days ago and yesterday had diarrhea. Patient denies any recent travel or surgery. She has no cardiac history. Patient has a history of high cholesterol no other medical problems.] Physical Examination: [HEENT-PERRLA, EOMI. Cranial nerves II through XII grossly intact. TMs clear. Mucous membranes moist. No adenopathy. Cardiovascular-regular rate and rhythm without murmur or ectopy Lungs-clear to auscultation, chest wall stable without crepitus or subcu emphysema Abdomen-normoactive bowel sounds, soft, nontender, no rebound or rigidity, no peritoneal signs. Extremities-intact 4, normal range of motion, normal pulses, atraumatic] Test Results: [EKG obtained arrival shows sinus rhythm with a ventricular rate of 85 bpm with some nonspecific ST changes as well as occasional PVCs noted. Patient had a prolonged QT noted.] CBC with differential was normal. Chemistries were normal. LFTs were normal. Lipase was 111. Troponin was less than 0.015. D-dimer was slightly elevated 0.50. Lactate was normal at 0.8. Chest x-ray was unremarkable. CTA of the chest showed no PE or dissection. CT scan of the abdomen pelvis with IV contrast showed an ileus with some dilated hepatic and dilated pancreatic ducts which may be related to prior cholecystectomy. Patient was noted to have an ileus. Emergency Department Course and Treatment: [Patient initially medicated with morphine and Zofran. She continued complaint of pain and repeat EKG obtained showed normal sinus rhythm with nonspecific ST changes and is unchanged from the first EKG. Patient continues to complain of nausea and intermittent discomfort in her abdomen and her chest both.] Treatment Plan: [Admit for further workup and evaluation] Disposition: [Admit] Impression: [Chest pain-etiology uncertain Ileus] This note was generated with Daily[employer]rength[employer] software. It may contain incorrect words, spelling, and punctuation that were not noted in review of the chart prior to signing ED Disposition - Plan for ED Patient: Chief Complaint: Chest Pain Referrals: Shimon Potts MD [Primary Care Provider] - What to do if you have Problems For any increased pain, shortness of breath, bleeding, nausea or vomiting, chest pain, or any unexpected problems, contact your Primary Care Provider. Call [facility] ([phone]) or report to the closest Emergency Room. Call 911 if necessary. 03/02/18 0726 <Electronically signed by Mayelin Shah DO> Date Mayelin Shah DO Cosigner Signature (If Indicated): Date CC: Shimon Potts MD 12 LEAD ELECTROCARDIOGRAM Observed: 02/28/2018 Status: F Source: [place] 2:54 PM [facility] Cardiovascular Services [address] [place] [address] 12 Lead EKG 02/25/18 0554 MR#: [id number] Acct: [id number] Name: DEVANG YOUSSEF Rep #: [id number] : 1950 67 From: Luis Tam MD Attending Dr: Ketty Vogt Status: DIS WOODY Ordering Dr: Sofya Ruiz Date: 02/25/18 [facility] F C Admitted: 02/24/18 Test Reason : AM EKG Blood Pressure : / mmHG Vent. Rate : 072 BPM Atrial Rate : 072 BPM P-R Int : 182 ms QRS Dur : 106 ms QT Int : 432 ms P-R-T Axes : 075 050 046 degrees QTc Int : 473 ms Sinus rhythm with Premature supraventricular complexes and with occasional Premature ventricular complexes Otherwise normal ECG When compared with ECG of 24-FEB-2018 15:59, MANUAL COMPARISON REQUIRED, DATA IS UNCONFIRMED Confirmed by LUIS TAM MD ([id number]), managing editor MEJIA MAK ([id number]) on 02/28/2018 2:53:29 PM Referred By: DR JENNINGS Confirmed By:LUIS TAM MD 02/28/18 1453 Date Luis Tam MD CC: FEDERICA Ruiz; Ketty Vogt; Shimon Potts MD Signed 12 LEAD ELECTROCARDIOGRAM Observed: 02/28/2018 Status: F Source: [place] 2:47 PM [facility] [facility] Cardiovascular Services [address] [place], [place] [address] [address] 12 Lead EKG 02/24/18 1527 MR#: [id number] Acct: [id number] Name: DEVANG YOUSSEF Rep #: [id number] : 1950 67 From: Luis Tam MD Attending Dr: Ketty Vogt Status: DIS WOODY Ordering Dr: Mayelin Shah DO Date: 02/24/18 [facility] Sex[facility] F C Admitted: 02/24/18 Test Reason : CP Blood Pressure : / mmHG Vent. Rate : 085 BPM Atrial Rate : 085 BPM P-R Int : 172 ms QRS Dur : 102 ms QT Int : 398 ms P-R-T Axes : 068 030 055 degrees QTc Int : 473 ms Sinus rhythm with frequent Premature ventricular complexes Nonspecific T wave abnormality Prolonged QT Abnormal ECG Confirmed by LUIS TAM MD ([id number]), managing editor MEJIA MAK ([id number]) on 02/28/2018 2:47:10 PM Referred By: SOFIA/JWAYYED Confirmed By:LUIS TAM MD 02/28/18 1447 Date Luis Tam MD CC: Ketty Vogt; Shimon Potts MD; Mayelin Shah DO Signed 12 LEAD ELECTROCARDIOGRAM Observed: 02/28/2018 Status: F Source: AR 2:47 PM [facility] Cardiovascular Services [address] [place] [address] 12 Lead EKG 02/24/18 1559 MR#: [id number] Acct: [id number] Name: DEVANG YOUSSEF Rep #: [id number] : 1950 67 From: Luis Tam MD Attending Dr: Ketty Vogt Status: DIS WOODY Ordering Dr: Mayelin Shah DO Date: 02/24/18 [facility] Sex: F C Admitted: 02/24/18 Test Reason : REPEAT-CP Blood Pressure : / mmHG Vent. Rate : 085 BPM Atrial Rate : 085 BPM P-R Int : 164 ms QRS Dur : 102 ms QT Int : 398 ms P-R-T Axes : 073 034 055 degrees QTc Int : 473 ms Sinus rhythm with Premature supraventricular complexes and with occasional Premature ventricular complexes Nonspecific T wave abnormality Prolonged QT Abnormal ECG Confirmed by LUIS TAM MD ([id number]), managing editor MEJIA MAK ([id number]) on 02/28/2018 2:47:28 PM Referred By: SOFIA Confirmed By:LUIS TAM MD 02/28/18 1447 Date Luis Tam MD CC: Ketty Vogt; Shimon Potts MD; Mayelin Shah DO Signed DISCHARGE SUMMARY Observed: 02/25/2018 Status: F Source: AR 1:30 PM [facility] Medical Records Department [address] [place] [address] Discharge Summary 02/25/18 1130 MR#: [id number] Acct: [id number] Name: DEVANG YOUSSEF Rep #: [id number] : 1950 67 From: Sofya Ruiz NP-Jesika PCP: Shimon Potts MD Status: ADM WOODY Y Location: [place] [address] ADDENDUM by Ketty Vogt on 02/25/18 at 1330 Code Visit ATTENDING PHYSICIAN DISCHARGE NOTE: I have seen and examined the patient independently and agree with the assessment, plan, history per Sofya Ruiz as noted. Discharge Diagnoses: (1) Chest pain, non-cardiac, suspected secondary to recent Gastrointestinal illness (2) Intermittent Severe Abdominal Pain, Diarrhea, Nausea, Emesis, Unclear Etiology w/ Mild Ileus, Resolved during admission (3) Strong Family Cardiac Disease History Discharge Summary: The patient is a 67 y/o F w/ PMHx: Recent onset intermittent severe abdominal pain with associated nausea, emesis, diarrhea, unclear specific etiology since w/ noted well water usage otherwise healthy who presents to the [facility] ED on 02/24/18 w/ history of onset recurrent bout of sudden abdominal discomfort which then spread to her chest with associated nausea, emesis and diaphoresis noting that the discomfort had extended to her left breast with no radiation to the neck or extremities which resolved upon presentation with strong family history of coronary disease noting that both her parents had bypass surgeries in her 60s. In the emergency room CT of the abdomen demonstrated possible ileus likely secondary to recent GI illnesses, EKG with no acute evidence of ischemia, CTA performed additionally secondary to mildly elevated d-dimer which was unremarkable, troponin normal x 1. The patient was admitted to PCU, maintained on cardiac telemetry, serial cardiac enzymes were obtained as well as serial EKGs which remained unremarkable. Patient underwent AM 02/25/18 stress testing which was noted to be negative for inducible ischemia. FLP was obtained during admission and noted to be not marked appearing. Patient was discharged to home in stable condition with recommendation for follow-up with primary care physician within 3-5 days as well as follow-up with GI Dr. Hay if ongoing GI symptoms which as noted had resolved following admission. Rx given upon discharge for stool studies if diarrhea shoulder recur. Patient discharged to home in stable condition. Discharge Time: > 35 Minutes DAY OF DISCHARGE PROGRESS NOTE: Subjective: Patient without acute event overnight per self and nursing report. Patient denies fever, chills, recurrent nausea, emesis, abdominal pain, chest pain or dyspnea. Discussed that she does have well water although she is the only affected individual. Stool studies requested outpatient if recurrent symptoms. Patient agreeable to discharge to home. Patient will be discharged with follow-up with primary care physician within 3-5 days in addition to follow-up with Dr. Hay if her preference. Objective: T 98.6, heart rate 67, BP 112/58, respiratory rate 16, 96% on room air. Physical Examination: General: awake, alert, oriented x 3 and cooperative, seated upright in the bed, NAD, does appear fatigued. Skin: normal color, turgor, no icterus, cyanosis. HEENT: AT/NC, EOMI, PERRLA, MMM. Lungs: CTA bilaterally, moderate effort, mild decrease BL bases, no rales, ronchi or wheezing; Heart: Regular rate and rhythm; no gallop, rub audible. Abdomen: soft, NTTP, ND, mildly hypoactive BS. Extremities: no cyanosis, clubbing, or edema. Neurological: patient awake, alert, oriented x 3; cognitive function appears intact upon questioning,; pupils equally reactive to light and accomodation; cranial nerves II-XII grossly normal, moving all 4 extremities, strength appropriate. Psychiatric: affect appears normal, no acute evidence of depressive or anxiety feelings. Assessment and Plan: Please see hospital summary above. OBSV E AND M: [id number] Observation care discharge 02/25/18 1330 <Electronically signed by Ketty Vogt > Date Ketty Vogt cc: FEDERICA Ruiz; Ketty Vogt; Shimon Potts MD * Signed Discharge Date and Diagnosis Date of Admission: 02/24/18 Date of Discharge: 02/25/18 - Primary Discharge Diagnosis Active and Suspected Problems 1. Atypical chest pain, ACS ruled out 2. Ileus Hospital Course and Treatment Imaging Results: Diagnostic Data Chest X-Ray 02/24/18 15:41 IMPRESSION: Normal x-ray examination of the chest. Electronically Signed: Tonny Van MD at 17:02 EST , Service support , Chest CTA 02/24/18 16:28 IMPRESSION: No demonstrated PE, or thoracic aortic aneurysm or dissection Chronic interstitial changes in both lung park with dependent atelectasis. No organized infiltrate or effusion Electronically Signed: Tonny Van MD at 17:34 EST , Service support , Abdomen/Pelvis CT 02/24/18 16:29 IMPRESSION: There has been a previous cholecystectomy. However, there is a significant amount of intra and extrahepatic biliary dilatation. This may be due to the previous cholecystectomy but if the patient is jaundiced or has elevated bilirubin a lesion in the head of the pancreas or ampulla of Vater is to be excluded. MRCP could be performed for evaluation. On coronal recon image 49/111 there is abrupt cut off of the common bile duct at the ampulla of Vater. There are scattered subcentimeter mesenteric and retroperitoneal lymph nodes Colonic diverticulosis 1.5 cm right renal cyst Normal appendix visualized. Degenerative bony changes Electronically Signed: Tonny Van MD at 17:40 EST , Service support , Operations: None Procedures: Stress test Summary of Care Provided: The patient is a 67 year old F admitted 02/24/2018 due to chest pain. 1. Chest pain-ACS ruled out. EKG with nonspecific ST changes, PVCs. D-dimer slightly elevated. CTA negative for PE or dissection. CT of abdomen and pelvis showed ileus. Chest x-ray unremarkable. Troponin negative x3. Patient underwent nuclear stress test which was negative for ischemia. 2. Ileus-CT of abdomen showed multiple nondistended fluid- filled small bowel loops consistent with ileus. Patient n.p.o. during admission. Abdominal pain resolved. Advance diet as tolerated. Recommend follow-up with primary care physician in 1 week. Also refer to GI, Dr. Hay in 1-2 Weeks. General: Alert, Oriented x3, Cooperative HEENT: Atraumatic, PERRLA, EOMI, Normocephalic Neck: Supple, No JVD, Negative Carotid Bruits Lungs: Clear to auscultation, Normal air movement Cardiovascular: Regular rate, Regular Rhythm, Normal S1, Normal S2, No murmurs Abdomen: Bowel Sounds Present, Soft, Non Tender, Non-Distended Extremities: No clubbing, No cyanosis, No edema, Capillary Refill Less than 3 Seconds Skin: No rashes, No breakdown Musculoskeletal: No Tenderness to Palpation of Joints or Extremities Neurological: Cranial nerves II-XII grossly intact, Neuro grossly intact Psych/Mental Status: Normal Affect, Appropriate Patient seen and examined prior to discharge. Physical assessment as noted above. Patient is stable for discharge with follow up recommendations as noted above. This patient was seen by FEDERICA Farias under the supervision of Dr. Vogt. - Physical Exam Vital Signs Temp Pulse Resp BP Pulse Ox 98.6 F 67 16 112/58 L 96 02/25/18 08:43 02/25/18 08:43 02/25/18 08:43 02/25/18 08:43 02/25/18 08:43 Oxygen Flow Rate (L/min) 2 Oxygen Delivery Method Room Air Weight: 167 lb 12.348 oz Body Mass Index (BMI) 25.4 Intake and Output for Last 24 Hours Intake Total 840 / 840 936 / 936 Balance 840 / 840 936 / 936 Laboratory Tests Past 24 Hrs WBC 9.1 RBC 4.31 Hgb 13.3 Hct 40.2 MCV 93.3 MCH 30.9 WBC RBC Hgb Hct MCV MCH MCHC RDW RDW Differential Plt Count MPV Immature Gran % (Auto) WBC 4.5 RBC 3.55 L Hgb 11.1 L Hct 33.1 L MCV 93.2 MCH 31.3 MCHC 33.5 WBC RBC Hgb Hct MCV MCH MCHC RDW RDW Differential Plt Count MPV Immature Gran % (Auto) Discharge Diet: Light diet - advance as tolerated Discharge Activity: Return to Normal Activity Call your doctor if you observe: Inability to have a bowel movement, Shortness of breath, Dizziness, Fainting spells, Chest pain Home Medications: Medications to take at Discharge Multivitamins,Therapeutic [Multivitamin] 1 tablet PO DAILY 07/20/13 Caltrate 1 tab PO DAILY 02/24/18 L. Acidophilus/Pectin, Winston [Acidophilus-Pectin Captab] 1 each PO DAILY 02/24/18 Primary Care Physician: Shimon Potts MD [Primary Care Provider] - Please follow up with your Primary Care Physician in: 1 Week Please Follow Up With: Tam Hay MD When: 1-2 Weeks Disposition: Home Minutes spent on discharge:: 35 Patient Condition:: Stable Medical Necessity - Tobacco Use Smoking Status: Never smoker Meaningful Use Info Meaningful Use Diagnoses (Choose all that apply): None applicable 02/25/18 1141 <Electronically signed by Sofya LEALC> Date Sofya LEALC 02/25/18 1248<Electronically signed by Ketty Vogt > Cosigner Signature (if applicable): Date Ketty Vogt CC: SAUSAGE LINKERKatleynC Sofya Ruiz; Ketty Vogt; Shimon Potts MD Signed DISCHARGE INSTRUCTION Observed: 02/25/2018 Status: C Source: [place] 12:45 PM [facility] Medical Records Department [address] [place] [address] [place] [address] Instructions for Home/Discharge Instructions 02/25/18 1126 MR#: [id number] Acct: [id number] Name: DEVANG YOUSSEF Rep #: [id number] : 1950 67 From: Sofya LEALC PCP: Shimon Potts MD Status: ADM WOODY ADDENDUM by Ketty Vogt on 02/25/18 at 1245 Additional Medications: Recommend daily aspirin 81 mg Additional Labs: If you have recurrent diarrhea, please obtain stools samples per lab recommendations (stop and obtain containers from outpatient lab prior to discharge) and may follow-up results with Dr. Shimon Potts, your PCP. Date Ketty Vogt cc: Shimon Potts MD * Addendum - Discharge Diagnoses Current Active Problems: Current Active and Chronic Problems Chest pain (Acute) You will use the following diet at home:: No restrictions Discharge Activity: Return to Normal Activity Call your doctor if you observe: Inability to have a bowel movement, Shortness of breath, Dizziness, Fainting spells, Chest pain Allergies/Adverse Reactions: Allergies No Known Allergies Allergy (Verified 02/24/18 15:29) Medications to take at Discharge Multivitamins,Therapeutic [Multivitamin] 1 tablet PO DAILY 07/20/13 Caltrate 1 tab PO DAILY 02/24/18 L. Acidophilus/Pectin, Winston [Acidophilus-Pectin Captab] 1 each PO DAILY 02/24/18 Primary Care Physician: Shimon Potts MD [Primary Care Provider] - Please follow up with your Primary Care Physician in: 1 Week Test Results: Test results from this visit will be discussed in further detail at your follow-up appointment, if applicable. Please Follow Up With: Tam Hay MD When: 1-2 Weeks Proposed Discharge Date: 02/25/18 02/25/18 1130 <Electronically signed by Sofya STALLWORTH> Date Sofya STALLWORTH CC: Shimon Potts MD STRESS REPORT Observed: 02/25/2018 Status: F Source: [place] 11:08 AM [facility] Cardiovascular Services [address] [place], [place] [id number] MR#: [id number] Acct: [id number] Name: DEVANG YOUSSEF Rep #: [id number] : 1950 67 From: Luis Tam MD Primary Care: Shimon Potts MD Status: ADM WOODY Ordering Dr: Sex: F C Stress Test Report Exercise myocardial perfusion stress test. 67-year-old lady with a history of chest pain. Stress protocol. Resting EKG demonstrates normal sinus rhythm with rate of 60 bpm normal intervals are noted resting blood pressure 106/60 mmHg. The patient exercised according to the regular Jamie protocol for a total duration of 6 minutes. The maximum heart rate attained was 139 bpm which was 89% of maximum predicted heart rate. Patient completed stage II of the Jamie protocol. The maximum workload was 7 metabolic equivalents. At rest there were no ST or T wave changes noted suggest ischemia at peak exercise upsloping ST changes only were noted with normally the criteria for ischemia. No clinical angina was noted the patient was noted to be short of breath. Resting blood pressure 106/60 with a peak blood pressure 148/72 mmHg. Myocardial perfusion protocol. 11.6 mCi of technetium 99m sestamibi was injected at rest. The patient exercised according to regular Jamie protocol for 6 minutes at peak exercise 36.0 mCi of technetium 99m sestamibi was injected stress images were obtained stress and rest images were reconstructed and compared in the short axis vertical long horizontal long axis. Gated images were also obtained Perfusion SPECT analysis: Review of the stress images demonstrate normal uptake of tracer noted in all areas of the myocardium. The resting images similarly demonstrate normal uptake of tracer noted in all areas of the myocardium. No areas of reversibility are noted suggest ischemia no previous infarct is noted. Gated SPECT analysis: The gated ejection fraction is noted to be 67%. Conclusion: Normal exercise myocardial perfusion stress test at a moderate workload. Preserved ejection fraction. 02/25/181107 <Electronically signed by Luis Tam MD> Date Luis Tam MD CC: Ketty Vogt; Shimon Potts MD Date Dictated: 02/25/181103 Date Transcribed: 02/25/181103 Pie Chef: CO Signed CBC W/DIFF, AUTOMATED Collected: 02/25/2018 Status: F Source: [place] 6:35 AM [facility] TYPE CODE TESTS RESULT OUT OF RANGE REFERENCE UNITS LAB L100.1000 4.4-11.0 K/mm3 Normal WBC 4.5 LAB L100.1200 4.2-5.4 M/mm3 Low RBC 3.55 LAB L100.1300 12.0-15.0 g/dl Low HGB 11.1 LAB L100.1400 37-47 % Low HCT 33.1 LAB L100.1500 81-99 fL Normal MCV 93.2 LAB L100.1600 27.0-32.0 pg Normal MCH 31.3 LAB L100.1700 32-36 g/gl Normal MCHC 33.5 LAB L100.1810 11.6-14.6 % Normal RDW CV 12.2 LAB L100.1820 35.1-43.9 fl Normal RDW SD 41.7 LAB L100.1900 150-450 K/mm3 Normal PLT 256 LAB L100.2000 6.2-12.0 fl Normal MPV 9.9 LAB L100.2100 47-70 % Normal NEUT% 48.7 LAB L100.2200 19-41 % Normal LY% 33.6 LAB L100.2300 0-10 % High MONO% 16.4 LAB L100.2400 0-5 % Normal EO% 0.9 LAB L100.2500 0-1 % Normal BASO% 0.4 LAB L100.2550 0.0-0.9 % Normal IM GRAN % 0.000 Result Comment: IG% - Immature Granulocytes (promyelocytes, myelocytes and metamyelocytes) > 1% indicates that a LEFT SHIFT is Present. LAB L100.2620 2.0-7.7 X10 3/uL Normal Absolute Neut 2.2 LAB L100.2720 0.83-4.51 X10 3/ul Normal Absolute Lymph 1.52 Performed By: #### L100.0100 #### [facility] [address] [place], [address] PROTHROMBIN TIME W/INR Collected: 02/25/2018 Status: F Source: AR 6:35 AM [facility] TYPE CODE TESTS RESULT OUT OF RANGE REFERENCE UNITS LAB L300.4150 11.7-14.9 SECONDS Normal PROTIME 13.9 LAB L300.4200 Normal INR 1.1 Performed By: #### L300.3900, L300.4310 #### [facility] [address] [place], [address] PARTIAL THROMBOPLAST Collected: 02/25/2018 Status: F Source: AR TIME 6:35 AM [facility] TYPE CODE TESTS RESULT OUT OF RANGE REFERENCE UNITS LAB L300.4310 24.1-36.2 Seconds Normal PTT 31.7 Performed By: #### L300.3900, L300.4310 #### [facility] [address] [place], [address] BASIC METABOLIC Collected: 02/25/2018 Status: F Source: AR PROFILE (BMP) 6:35 AM [facility] TYPE CODE TESTS RESULT OUT OF RANGE REFERENCE UNITS LAB L501.0100 74-106 mg/dL Normal GLU 84 Result Comment: Please note revised GLUCOSE reference range effective 2017. LAB L501.1000 7-18 mg/dL Normal BUN 12 LAB L501.1100 0.55-1.02 mg/dL Normal CREAT,SERUM 0.59 Result Comment: The validity of the calculated GFR AND GFRAA in patients over 70 years has not been determined. Clinical correlation is essential. LAB L501.1110 >60 mL/min Normal EST GFR 109 Result Comment: Non- GFR Calc LAB L501.1115 >60 mL/min Normal EST GFR - AA 132 Result Comment: GFR Calc LAB L501.1255 ml/min Normal Estimated CRCL 95.90 LAB L501.1300 10-20 RATIO High BUN/CRE 20.4 LAB L501.2200 8.5-10 mg/dL Low .1 CA 7.7 LAB L501.5300 136-14 mmol/L Normal 5 NA 142 LAB L501.5600 3.5-5. mmol/L Normal 1 K 3.9 LAB L501.5900 98-107 mmol/L High CL 112 LAB L501.6100 21.0-3 mmol/L Normal 2.0 CO2 22.0 LAB L501.6200 5-15 Normal GAP 8 Performed By: #### L500.2500, L500.4100 #### [facility] [address] [place], [place], [address] LIPID PROFILE Collected: 02/25/2018 Status: F Source: [place] 6:35 AM [facility] TYPE CODE TESTS RESULT OUT OF RANGE REFERENCE UNITS LAB L501.4900 200 mg/dL Normal CHOL 135 Result Comment: <200 mg/dL Desirable 200-240 mg/dL Borderline >240 mg/dL High Risk LAB L501.5000 mg/dL Normal TRIG 57 Result Comment: The drugs N-Acetylcysteine and Metamizole may falsely depress this assay. Serum Triglycerides Reference Interval Normal <150 mg/dL Borderline high 150 - 199 mg/dL High 200 - 499 mg/dL Very High > or = 500 mg/dL LAB L501.6400 mg/dL Normal HDL 47 Result Comment: The drugs N-Acetylcysteine and Metamizole may falsely depress this assay. Reference Range HDL <40 mg/dL Low HDL Cholesterol HDL >or= 60 mg/dL High HDL Cholesterol LAB L501.6500 0-130 mg/dL Normal LDL 77 LAB L501.6600 5-40 mg/dL Normal VLDL 11 Performed By: #### L500.2500, L500.4100 #### [facility] [address] [place], [address] TROPONIN-I Collected: 02/25/2018 Status: F Source: [place] 6:35 AM [facility] Order Comment: 'TROP' Serial specimen #1, #2 or #3: 3 TYPE CODE TESTS RESULT OUT OF RANGE REFERENCE UNITS LAB L501.4010 <0.045 ng/mL Normal < 0.015 TROPONIN-I Result Comment: TROPONIN-I EXPECTED VALUES <0.045 Negative 0.045 - 0.590 Consistent with Cardiac Damage > OR = 0.600 Critical Value Not every elevated troponin is indicative of CA. These values should be used with clinical judgement in examining the patient's clinical picture for diagnosis. To establish a diagnosis of CA versus myocardial injury, there must be a demonstrated rise and/or fall in the troponin values, in addition to ischemic symptoms, EKG changes, new regional wall motion abnormality, and/or angiographical evidence. PLEASE NOTE: REFERENCE RANGES EDITED 17 Performed By: #### L501.4010 #### [facility] [address] [facility] [place], [address] MAGNESIUM Collected: 02/25/2018 Status: F Source: [place] 6:35 AM [facility] TYPE CODE TESTS RESULT OUT OF RANGE REFERENCE UNITS LAB L501.5200 1.6-2.6 mg/dL Normal MG 1.9 Performed By: #### L501.5200 #### [facility] [address] [place], [address] TROPONIN-I Collected: 02/25/2018 Status: F Source: [place] 3:38 AM [facility] Order Comment: 'TROP' Serial specimen #1, #2 or #3: 2 TYPE CODE TESTS RESULT OUT OF RANGE REFERENCE UNITS LAB L501.4010 <0.045 ng/mL Normal < 0.015 TROPONIN-I Result Comment: TROPONIN-I EXPECTED VALUES <0.045 Negative 0.045 - 0.590 Consistent with Cardiac Damage > OR = 0.600 Critical Value Not every elevated troponin is indicative of CA. These values should be used with clinical judgement in examining the patient's clinical picture for diagnosis. To establish a diagnosis of CA versus myocardial injury, there must be a demonstrated rise and/or fall in the troponin values, in addition to ischemic symptoms, EKG changes, new regional wall motion abnormality, and/or angiographical evidence. PLEASE NOTE: REFERENCE RANGES EDITED 17 Performed By: #### L501.4010 #### [facility] [address] [place], [address] HISTORY AND PHYSICAL Observed: 02/24/2018 Status: F Source: [place] EXAM 7:53 PM [facility] Medical Records Department [address] [place] [address] History and Physical 02/24/18 1826 MR#: [id number] Acct: [id number] Name: MIKAELDEVANG Nathaniel Rep #: [id number] : 1950 67 From: Sofya Ruiz SAUSAGE LINKERLing PCP: Shimon Potts MD Status: ADM WOODY Y Location: [place] [address] <Sofya Ruiz - Last Filed: 02/24/18 18:49> Problem List (1) Chest pain Status: Acute History of Present Illness Date of Admission: 02/24/18 Chief Complaint: Chest pain. The patient is a 67 year old F who presents emergency room due to chest pain. 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 She then reports she developed nausea and vomiting, diaphoresis. Chest pain located across her chest extending to left breast area. She denies radiation of pain to neck or arm. Denies shortness of breath. She denies past medical history. She does report her mother and father both had heart disease with CABG in their 60s. Denies history of tobacco use. 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 Denies: Edema, Palpitations, Syncope Respiratory: Denies: Cough, Shortness of breath at rest, Sputum production Gastrointestinal: Reports: Nausea, Vomiting. Denies: Abdominal Pain Genitourinary: Denies: Dysuria Musculoskeletal: Denies: Joint Pain, Joint Tenderness Skin: Denies: Rash, Wounds Neurological: Denies: Numbness, Tingling, Focal weakness Psychiatric: Denies: Anxiety, Depression, Homicidal Ideations, Suicidal Ideations Hematologic/ Lymphatic: Denies: Easy Bruising, Easy Bleeding VTE Information - Inpt Only VTE Present on Admission: No VTE Mechan Device Prophylaxis: None VTE Pharm Prophylaxis ordered?: Yes Patient Problems: Active and Suspected Problems Chest pain (Acute) - Physical Exam General: Alert, Oriented x3, Cooperative HEENT: Atraumatic, PERRLA, EOMI, Normocephalic Neck: Supple, No JVD, Negative Carotid Bruits Lungs: Clear to auscultation, Normal air movement Cardiovascular: Regular rate, Regular Rhythm, Normal S1, Normal S2, No murmurs Abdomen: Bowel Sounds Present, Soft, Non Tender, Non-Distended Extremities: No clubbing, No cyanosis, No edema, Capillary Refill Less than 3 Seconds Skin: No rashes, No breakdown Musculoskeletal: No Tenderness to Palpation of Joints or Extremities Neurological: Cranial nerves II-XII grossly intact, Neuro grossly intact Psych/Mental Status: Normal Affect, Appropriate Vital Signs Temp Pulse Resp BP Pulse Ox 98.1 F 75 18 113/51 L 98 02/24/18 15:24 02/24/18 18:08 02/24/18 18:08 02/24/18 18:08 02/24/18 18:08 Oxygen Flow Rate (L/min) 2 Oxygen Delivery Method Room Air Weight: 175 lb 0.752 oz Body Mass Index (BMI) 27.3 Laboratory Tests Past 24 Hrs WBC 9.1 RBC 4.31 Hgb 13.3 Hct 40.2 MCV 93.3 MCH 30.9 MCHC 33.1 RDW 12.2 RDW Differential 41.0 WBC RBC Hgb Hct MCV MCH MCHC RDW RDW Differential Plt Count MPV Immature Gran % (Auto) Neut % (Auto) Assessment/Plan All Active Problems Chest pain (Acute) 1. Chest pain-rule out ACS. EKG with nonspecific ST changes, PVCs. D-dimer slightly elevated. CTA negative for PE or dissection. CT of abdomen and pelvis showed ileus. Chest x-ray unremarkable. Troponin negative x1. Cycle enzymes. Repeat EKG in a.m. Nuclear stress test in a.m. FLP in am. 2. Ileus-as noted on CT. n.p.o. IV fluids. Zofran as needed for nausea. IV protonix. DVT prophylaxis- Lovenox sc This patient was seen by FEDERICA Farias under the supervision of Dr. Jennings. <Linda Jennings - Last Filed: 02/24/18 19:53> History of Present Illness The patient is a 67 year old F [] Past Medical History Allergies No Known Allergies Allergy (Verified 02/24/18 15:29) - Physical Exam Vital Signs Temp Pulse Resp BP Pulse Ox 97.7 F L 74 16 103/67 94 02/24/18 19:45 02/24/18 19:45 02/24/18 19:45 02/24/18 19:49 02/24/18 19:45 Oxygen Flow Rate (L/min) 2 Oxygen Delivery Method Room Air Weight: 175 lb 0.752 oz Body Mass Index (BMI) 27.3 Laboratory Tests Past 24 Hrs WBC 9.1 RBC 4.31 Hgb 13.3 Hct 40.2 MCV 93.3 MCH 30.9 MCHC 33.1 RDW 12.2 RDW Differential 41.0 WBC RBC Hgb Hct MCV MCH MCHC RDW RDW Differential Plt Count MPV Immature Gran % (Auto) Neut % (Auto) Assessment/Plan Patient seen and examined by Sofya Ruiz under my supervision. Patient was admitted with complaint of chest pain which started around in his office. Chest pain was left-sided and radiated to underneath her breast and her back. It is a cramping rated at its worst 10 out of 10. She denied any assisted lightheadedness or dizziness or palpitations. She had had concomitant diarrhea a few days prior to admission. She denied any fever or chills, and cough or chest pain, shortness of breath, pain, nausea or vomiting. Patient looks very uncomfortable during review. Close inquiry, she denied any history of long distance travel and never had any clots. Her brother however had a history of clots and had been on Coumadin lifelong. She did not know the indication for the clots. I spoke to her brother on phone who stated that he had a history of numerous autoimmune conditions and also had MT HFR gene mutation for which his nurse administrator had told him he needed to be on Coumadin for the rest of his life. Review of systems otherwise negative. o/e: Vital Signs Height 5 ft 8 in Weight: 167 lb 12.348 oz General: Alert, Oriented x3, Cooperative; looks very uncomfortable HEENT: Atraumatic, PERRLA, EOMI, Normocephalic Neck: Supple, No JVD, Negative Carotid Bruits Lungs: Clear to auscultation, Normal air movement Cardiovascular: Regular rate, Regular Rhythm, Normal S1, Normal S2, No murmurs Abdomen: Bowel Sounds Present, Soft, Non Tender, Non-Distended Extremities: No clubbing, No cyanosis, No edema, Capillary Refill Less than 3 Seconds Skin: No rashes, No breakdown Musculoskeletal: No Tenderness to Palpation of Joints or Extremities Neurological: Cranial nerves II-XII grossly intact, Neuro grossly intact Psych/Mental Status: Normal Affect, Appropriate, looks uncomfortable Plan will be to admit to PCU with telemetry under observation. CT of the abdomen done showed ileus which is likely due to for diarrhea. EKG showed no acute ST changes and initial troponin was negative. CT angiogram of the chest done was negative for any PE. To keep n.p.o. for now and hydrate with IV fluids. For stress test tomorrow. We will cycle troponins. Rest of management as per Sofya LEALC's above note, assessment and plan which I have reviewed and agree with. Code Visit OBSV E AND M: 63429 Initial observation care L3 02/24/18 5970 <Electronically signed by Sofya LEALC> Date Sofya STALLWORTH 02/24/181952<Electronically signed by Linda Jennings MD> Cosigner Signature: Date (if applicable) Linda Jennings MD CC: SAUSAGE LINKER-C Sofya Ruiz; Shimon Potts MD; Linda Jennings MD Signed LACTIC ACID Collected: 02/24/2018 Status: F Source: AR 5:40 PM [facility] Order Comment: Yes/No query for Sepsis Lactate Rule Y TYPE CODE TESTS RESULT OUT OF RANGE REFERENCE UNITS LAB L503.6005 0.4-2.0 mmol/L Normal LACTIC ACID 0.8 Performed By: #### L503.6005 #### [facility] [address] [place], [address] CTA CHEST W/WO Observed: 02/24/2018 Status: F Source: AR CONTRAST 4:29 PM [facility] Imaging Services [address] [place] [address] CTA Chest W/WO Contrast MR#: [id number] Acct: [id number] Name: DEVANG YOUSSEF Rep #: [id number] : 1950 F 67 From: Matthew Van MD PCP: Shimon Potts MD Status: REG ER Study: CTA Chest W/WO Contrast Date of Exam: 02/24/18 Exam# [id number] Ordering Dr: Mayelin Shah DO STUDY: CTA CHEST REASON FOR EXAM: Female, 67 years old. Sudden onset of chest and abdominal pain RADIATION DOSAGE (If Supplied By Facility): CTDIvol = ( 14.19 ) mGy, DLP = ( 1130.84 ) mGycm TECHNIQUE: The examination was performed with the intravenous administration of 75mL ml of Isovue 370 contrast material. Post-processing of the angiographic images was performed, with multiplanar reformation and 3D reconstruction. Individualized dose optimization techniques were used for this CT. COMPARISON: None. FINDINGS: Normal enhancement of the main pulmonary artery and right and left pulmonary arteries. Normal enhancement of the bilateral peripheral pulmonary arteries. There is no demonstrated pulmonary embolism. Normal thoracic aorta and visualized great vessels. There is no demonstrated aortic dissection. Normal heart and pericardium. Normal mediastinum. Normal hilar regions. Normal visualized trachea and bronchi. The lungs are well expanded. Chronic interstitial changes in both lung park with dependent atelectasis. No superimposed acute pulmonary process. Normal pleura. Normal chest wall structures. There are degenerative changes of thoracic spine. Normal visualized upper abdomen. CT/CTA Chest W/WO Contrast IMPRESSION: No demonstrated PE, or thoracic aortic aneurysm or dissection Chronic interstitial changes in both lung park with dependent atelectasis. No organized infiltrate or effusion Electronically Signed: Tonny Van MD at 17:34 EST , Service support , CC: Shimon Potts MD; Mayelin Shah DO Pie Chef: Signed ABDOMEN/PELVIS W IV CONT Observed: 02/24/2018 Status: F Source: TAMPA ONLY 4:29 PM [facility] Imaging Services [address] [place] [address] Abdomen/Pelvis W IV Cont ONLY MR#: [id number] Acct: [id number] Name: DEVANG YOUSSEF Rep #: [id number] : 1950 F 67 From: Matthew Van MD PCP: Shimon Potts MD Status: REG ER Study: Abdomen/Pelvis W IV Cont ONLY Date of Exam: 02/24/18 Exam# [id number] Ordering Dr: Mayelin Shah DO STUDY: CT ABDOMEN AND PELVIS WITH CONTRAST REASON FOR EXAM: Female, 67 years old. Sudden onset of chest and abdominal pain RADIATION DOSAGE (If Supplied By Facility): CTDIvol = ( 14.19 ) mGy, DLP = ( 1130.84 ) mGycm TECHNIQUE: Transaxial images were obtained from the dome of the diaphragm to the symphysis pubis without oral contrast. 75mL ml of Isovue 370 contrast was administered. Sagittal and coronal images were reconstructed. Individualized dose optimization techniques were used for this CT. COMPARISON: None. FINDINGS: Liver shows no discrete lesion. Previous cholecystectomy. There is intra and extrahepatic biliary dilatation as well as mild dilatation of the pancreatic duct. However, there is no discrete lesion within the head of the pancreas. The amount of dilatation of the biliary tree could be explained by the previous cholecystectomy. However, if the patient is jaundiced or has elevated bilirubin, a lesion in the head of pancreas or in the ampulla of Vater is to be excluded. MRCP could be used for evaluation.. Normal spleen. No discrete lesion noted within the pancreas or is no peripancreatic inflammation. Normal bilateral adrenal glands. Normal right kidney. Normal left kidney. There is a simple 1.5 cm right renal cyst Normal visualized stomach. Multiple nondistended fluid-filled small bowel loops are noted consistent with ileus. There are multiple colonic diverticula consistent with diverticulosis. The appendix is visualized and appears normal. Appendix best seen on coronal recon image 36. Normal abdominal aorta. Normal inferior vena cava. There are scattered subcentimeter mesenteric and retroperitoneal lymph nodes. Normal urinary bladder. Normal abdominal wall. There are diffuse degenerative changes of the visualized lumbar spine, and pelvis. There is a grade 1 spondylolisthesis at L4-5. CT/Abdomen/Pelvis W IV Cont ONLY IMPRESSION: There has been a previous cholecystectomy. However, there is a significant amount of intra and extrahepatic biliary dilatation. This may be due to the previous cholecystectomy but if the patient is jaundiced or has elevated bilirubin a lesion in the head of the pancreas or ampulla of Vater is to be excluded. MRCP could be performed for evaluation. On coronal recon image 49/111 there is abrupt cut off of the common bile duct at the ampulla of Vater. There are scattered subcentimeter mesenteric and retroperitoneal lymph nodes Colonic diverticulosis 1.5 cm right renal cyst Normal appendix visualized. Degenerative bony changes Electronically Signed: Tonny Van MD at 17:40 EST , Service support , CC: Shimon Potts MD; Mayelin Shah DO Pie Chef: Signed CBC W/DIFF, AUTOMATED Collected: 02/24/2018 Status: F Source: TAMPA 3:55 PM [facility] TYPE CODE TESTS RESULT OUT OF RANGE REFERENCE UNITS LAB L100.1000 4.4-11.0 K/mm3 Normal WBC 9.1 LAB L100.1200 4.2-5.4 M/mm3 Normal RBC 4.31 LAB L100.1300 12.0-15.0 g/dl Normal HGB 13.3 LAB L100.1400 37-47 % Normal HCT 40.2 LAB L100.1500 81-99 fL Normal MCV 93.3 LAB L100.1600 27.0-32.0 pg Normal MCH 30.9 LAB L100.1700 32-36 g/gl Normal MCHC 33.1 LAB L100.1810 11.6-14.6 % Normal RDW CV 12.2 LAB L100.1820 35.1-43.9 fl Normal RDW SD 41.0 LAB L100.1900 150-450 K/mm3 Normal PLT 304 LAB L100.2000 6.2-12.0 fl Normal MPV 10.2 LAB L100.2100 47-70 % High NEUT% 78.3 LAB L100.2200 19-41 % Low LY% 11.8 LAB L100.2300 0-10 % Normal MONO% 9.0 LAB L100.2400 0-5 % Normal EO% 0.5 LAB L100.2500 0-1 % Normal BASO% 0.2 LAB L100.2550 0.0-0.9 % Normal IM GRAN % 0.200 Result Comment: IG% - Immature Granulocytes (promyelocytes, myelocytes and metamyelocytes) > 1% indicates that a LEFT SHIFT is Present. LAB L100.2620 2.0-7.7 X10 3/uL Normal Absolute Neut 7.2 LAB L100.2720 0.83-4.51 X10 3/ul Normal Absolute Lymph 1.08 Performed By: #### L100.0100 #### [facility] [address] [place], [address] BASIC METABOLIC Collected: 02/24/2018 Status: F Source: AR PROFILE (BMP) 3:55 PM [facility] TYPE CODE TESTS RESULT OUT OF RANGE REFERENCE UNITS LAB L501.0100 74-106 mg/dL Normal GLU 94 Result Comment: Please note revised GLUCOSE reference range effective 2017. LAB L501.1000 7-18 mg/dL Normal BUN 17 LAB L501.1100 0.55-1.02 mg/dL Normal CREAT,SERUM 0.78 Result Comment: The validity of the calculated GFR AND GFRAA in patients over 70 years has not been determined. Clinical correlation is essential. LAB L501.1110 >60 mL/min Normal EST GFR 79 Result Comment: Non- GFR Calc LAB L501.1115 >60 mL/min Normal EST GFR - AA 96 Result Comment: GFR Calc LAB L501.1255 ml/min Normal Estimated CRCL 69.93 LAB L501.1300 10-20 RATIO High BUN/CRE 21.9 LAB L501.2200 8.5-10 mg/dL Normal .1 CA 8.9 LAB L501.5300 136-14 mmol/L Normal 5 NA 140 LAB L501.5600 3.5-5. mmol/L Normal 1 K 3.9 LAB L501.5900 98-107 mmol/L Normal CL 106 LAB L501.6100 21.0-3 mmol/L Normal 2.0 CO2 25.0 LAB L501.6200 5-15 Normal GAP 9 Performed By: #### L500.2500, L501.2450, L501.4010 #### [facility] [address] [place], [address] LIPASE Collected: 02/24/2018 Status: F Source: AR 3:55 PM [facility] TYPE CODE TESTS RESULT OUT OF RANGE REFERENCE UNITS LAB L501.2450 73-393 U/L Normal LIPASE 111 Performed By: #### L500.2500, L501.2450, L501.4010 #### [facility] [address] [place], [address] TROPONIN-I Collected: 02/24/2018 Status: F Source: TAMPA 3:55 PM [facility] TYPE CODE TESTS RESULT OUT OF RANGE REFERENCE UNITS LAB L501.4010 <0.045 ng/mL Normal < 0.015 TROPONIN-I Result Comment: TROPONIN-I EXPECTED VALUES <0.045 Negative 0.045 - 0.590 Consistent with Cardiac Damage > OR = 0.600 Critical Value Not every elevated troponin is indicative of CA. These values should be used with clinical judgement in examining the patient's clinical picture for diagnosis. To establish a diagnosis of CA versus myocardial injury, there must be a demonstrated rise and/or fall in the troponin values, in addition to ischemic symptoms, EKG changes, new regional wall motion abnormality, and/or angiographical evidence. PLEASE NOTE: REFERENCE RANGES EDITED 17 Performed By: #### L500.2500, L501.2450, L501.4010 #### [facility] [address] [place], [place], [address] D-DIMER QUANTITATIVE Collected: 02/24/2018 Status: F Source: TAMPA (DVT/PE) 3:55 PM [facility] TYPE CODE TESTS RESULT OUT OF RANGE REFERENCE UNITS LAB L300.8000 0.27-0.49 FEU/ug/m High D-DIMER 0.50 QUANT Result Comment: D-Dimer ELEVATED (>0.49): Additional studies and clinical assessments are indicated to conclude diagnosis of: Deep Vein Thrombosis (DVT) or Pulmonary Embolism (PE) Performed By: #### L300.8000 #### [facility] [address] [place], [place], [address] LIVER PROFILE Collected: 02/24/2018 Status: F Source: TAMPA 3:55 PM [facility] TYPE CODE TESTS RESULT OUT OF RANGE REFERENCE UNITS LAB L501.1500 6.4-8.2 g/dL Normal T PROT 7.3 LAB L501.1800 3.2-5.0 g/dL Normal ALB 3.9 LAB L501.1950 2.2-4.2 g/dL Normal GLOB 3.4 LAB L501.4100 15-37 U/L Normal AST 27 LAB L501.4305 45-117 U/L Normal ALK P 65 LAB L501.4405 13-56 U/L Normal ALT 34 LAB L501.4600 0.20-1.00 mg/dL Normal T BILI 0.30 LAB L501.4700 0.00-0.30 mg/dL Normal D BILI 0.11 Performed By: #### L500.3400 #### [facility] [address] [place], [address] CHEST 1 VIEW Observed: 02/24/2018 Status: F Source: TAMPA (PORTABLE) 3:41 PM [facility] REPOSITORY [facility] Imaging Services [address] [place] [address] Chest 1 View (Portable) MR#: [id number] Acct: [id number] Name: DEVANG YOUSSEF Rep #: [id number] : 1950 F 67 From: Matthew Van MD PCP: Delroy LUO,Shimon Status: REG ER Study: Chest 1 View (Portable) Date of Exam: 02/24/18 Exam# [id number] Ordering Dr: Mayelin Shah DO STUDY: X-RAY CHEST REASON FOR EXAM: Female, 67 years old. Acute chest pain TECHNIQUE: Single AP portable view of the chest. COMPARISON: 2011 FINDINGS: EKG leads overlie the chest The lungs are clear and expanded. There is no demonstrated pleural abnormality. Normal size heart. Normal mediastinum and kaitlin. Normal visualized pulmonary arteries. Normal visualized aortic arch and descending thoracic aorta. Normal visualized thoracic spine. Normal visualized ribs, clavicles, and shoulders. There is no demonstrated abnormality of the visualized soft tissue structures of the upper abdomen. RAD/Chest 1 View (Portable) IMPRESSION: Normal x-ray examination of the chest. Electronically Signed: Tonny Van MD at 17:02 EST , Service support , CC: Shimon Potts MD; Mayelin Shah DO Pie Chef: Signed LIPID PROFILE Collected: 01/03/2018 Status: F Source: TAMPA 8:15 AM [facility] TYPE CODE TESTS RESULT OUT OF RANGE REFERENCE UNITS LAB L501.4900 200 mg/dL High CHOL 207 Result Comment: <200 mg/dL Desirable 200-240 mg/dL Borderline >240 mg/dL High Risk LAB L501.5000 mg/dL Normal TRIG 58 Result Comment: The drugs N-Acetylcysteine and Metamizole may falsely depress this assay. Serum Triglycerides Reference Interval Normal <150 mg/dL Borderline high 150 - 199 mg/dL High 200 - 499 mg/dL Very High > or = 500 mg/dL LAB L501.6400 mg/dL Normal HDL 69 Result Comment: The drugs N-Acetylcysteine and Metamizole may falsely depress this assay. Reference Range HDL <40 mg/dL Low HDL Cholesterol HDL >or= 60 mg/dL High HDL Cholesterol LAB L501.6500 0-130 mg/dL Normal LDL 126 LAB L501.6600 5-40 mg/dL Normal VLDL 12 Performed By: #### L500.4100, L501.0100 #### [facility] [address] [place], [place], [address] GLUCOSE Collected: 01/03/2018 Status: F Source: TAMPA 8:15 AM [facility] TYPE CODE TESTS RESULT OUT OF RANGE REFERENCE UNITS LAB L501.0100 74-106 mg/dL Normal GLU 86 Result Comment: Please note revised GLUCOSE reference range effective 2017. Performed By: #### L500.4100, L501.0100 #### [facility] [address] [place], [address] ALLERGIES ALLERGIES DATE TYPE / CODE NAME / CODE REACTION SEVERITY SOURCE 03/24/2018 Drug No Known Unknown [facility] Allergy/4160 Allergies/F00 [facility] 59958(SNOMED 7748607(RXNOR Repository CT) M) ENCOUNTERS ENCOUNTERS ADMIT/DISCHARGE ACCOUNT NUMBER ADMITTING ENCOUNTER LOCATION SOURCE CLASS 04/11/2018/04/11/19 [id number] Ambulatory BBuilding:RITA [facility]orm[place] [address] [facility] Repository 03/24/2018 [id number] Ambulatory [facility] ding:OPBI Repository 03/24/2018/03/24/19 [id number] Ambulatory BMSBuilding: [place] [address] [facility] Repository 03/21/2018 [id number] Ambulatory [facility] ding:MRI Repository 03/08/2018 [id number] Ambulatory [facility] ding:LABSPEC Repository 03/08/2018 [id number] Ambulatory [facility] ding:OLS.WCE Repository H 02/25/2018/02/26/20 [id number] Ambulatory BMSBuilding: [place] 18 [facility] Repository 02/24/2018/02/26/20 [id number] [facility] [address] ding:PCURoom Repository : [id number]: 1 02/24/2018 [id number] Linda Jennings Ambulatory BMSBuilding: [place] [facility]i [facility] Repository 02/24/2018 [id number] [facility] BMSBuilding: Ar Araceli [facility] Repository 01/03/2018 [id number] [facility] ding:OLS.WCE Repository H PAYERS PAYERS ENCOUNTER GUARANTOR PAYER SUBSCRIBER SOURCE 04/11/2018 DEVANG Armstrong [facility] OBRECHTDOB: Insurance:MEDICARE OBRECHTDOB: [facility] [id number] PART B INSCOPolicy [id number] Repository [facility] Number: [address] [place] [id number] [place] [address]Mqg: (133) Date:2018-04-08Tel: () [phone] Name:GUICHO ()Tel: ([phone]) Administrators LLCVY [phone] () [address] [address], [place] [address]YM: 04/11/2018 Secondary DEVANG M [facility] Insurance:ANTHEM BLUE OBRECHTDOB: [facility] [id number] Repository Number: [address] [id number] [place] Date:2018-04-08 [address]Lly: [phone] [phone] Name:Consuelo Mcgarry ()Tel: [phone], [place] [phone] ) [address]FX: 03/24/2018 WILLIE Bauman Primary DEVANG M [place] [id number] Insurance:MEDICARE OBRECHTDOB: [facility] [id number] [place] Number: Repository [address]Yvp: 330 [id number] [phone] () Date:2018-01-20 03/24/2018 Secondary DEVANG M [place] Insurance:ANTHEMPolic OBRECHTDOB: Community y Number: [id number] [facility] [id number] Repository Date:2148-04-30DB [id number] [place] [address]SD: 03/24/2018 Tertiary NOT GIVENUNK [place] Insurance:SELF PAY [facility] Number: Effective Repository Date:2018-01-20 03/24/2018 WILLIE Bauman Primary DEVANG M [place] [id number] Insurance:MEDICARE OBRECHTDOB: [facility] [id number] [place] Number: Repository [address]Eam: 330 [id number] [phone] () Date:2018-01-20 03/24/2018 Secondary DEVANG M [place] Insurance:ANTHEMPolic OBRECHTDOB: Community y Number: [id number] Hospital [id number] Repository Date:[id number] [address], [place] [address]DO: 03/24/2018 Tertiary NOT GIVENUNK [place] Insurance:SELF PAY [facility] Number: Effective Repository Date:2018-03-24 03/21/2018 WILLIE Bauman Primary DEVANG M [place] [id number] Insurance:AETNAPolicy OBRECHTDOB: [facility] Number: [id number] [place] [id number] Repository [address]Ohm: (330) Date:7488-19-32JJ [phone] (HP) [address]76[address]EK [place] [address]CX: 03/21/2018 Secondary NOT GIVENUNK [place] Insurance:SELF PAY [facility] Number: Effective Repository Date:2018-03-09 03/08/2018 WILLIE Bauman Primary DEVANG Armstrong [place] [id number] Insurance:AETNAPolicy OBRECHTDOB: [facility] Number: [id number] [place] [id number] Repository [address]Vco: (330) Date:8200-66-74CE [phone] (HP) [address]27[address]VC [place] [address]PS: 03/08/2018 Secondary NOT GIVENUNK Ar Insurance:SELF PAY [facility] Number: Effective Repository Date:2018-03-08 03/08/2018 WILLIE Bauman Primary NOT GIVENUNK [place] [id number] Insurance:SELF PAY [place] Number: Effective Repository [phone]: (330) Date:2018-03-08 [phone] (HP) 02/25/2018 WILLIE Bauman Primary DEVANG Armstrong [place] [id number] Insurance:AETNAPolicy OBRECHTDOB: [facility] Number: [id number] [place] [id number] Repository [address]Kea: (330) Date:7855-40-19ZJ [phone] (HP) [id number] [place] [address]YM: 02/25/2018 Secondary NOT GIVENUNK [place] Insurance:SELF PAY [facility] Number: Effective Repository Date:2018-02-25 02/24/2018 WILLIE Bauman Primary DEVANG Armstrong [place] [id number] Insurance:AETNAPolicy OBRECHTDOB: [facility] Number: [id number] [place] [id number] Repository [address]Lez: (330) Date:6340-59-29ZX [phone] (HP) [place] [address]IK: 02/24/2018 Secondary DEVANG M [place] Insurance:MEDICARE OBRECHTDOB: [facility] PART A [facility] [id number] Hospital Number: Repository [id number] Date:2018-02-19 02/24/2018 Tertiary NOT GIVENUNK Ar Insurance:SELF PAY [facility] Number: Effective Repository Date:2018-02-24 02/24/2018 WILLIE H Primary DEVANG M [place] [id number] Insurance:AETNAPolicy OBRECHTDOB: [facility] Number: [id number] [place], [place] [id number] Repository [address]Kwb: (330) Date:[id number] [phone] (HP) [id number] [address]BJ: 02/24/2018 Secondary NOT GIVENUNK [place] Insurance:SELF PAY [facility] Number: Effective Repository Date:2018-02-24 02/24/2018 WILLIE H Primary DEVANG M [place] [id number] Insurance:AETNAPolicy OBRECHTDOB: [facility] [place]: [id number] [id number] Repository [address]Ybs: (330) Date:[id number] [phone] [id number] [address]GV: 02/24/2018 Secondary NOT GIVENUNK [place] Insurance:SELF PAY [facility] Number: Effective Repository Date:2018-02-24 01/03/2018 Willie Bauman Primary NOT GIVENUNK [place] [id number] Insurance:SELF PAY [place] Number: Effective Repository [id number]: ([phone] Date:2018-01-03 [phone]
== END ==
PROVIDERS: Family Provider Family Medicine; PCP Family Medicine; Referring Provider Family Medicine; Visit Provider Family Medicine
DX: K83.8 Other specified diseases of biliary tract (principal)
CPT/HCPCS: 83690; 86140

== ENCOUNTER → 2018-03-21 06:32 | Outpatient (CLI) | payer OTHER, SELFPAY ==
[2018-02-24 19:50] VITALS: BMI 25.4
--- NOTE | 2018-03-21 06:38 | MRI_ITS ---
STUDY: MRI ABDOMEN WITHOUT CONTRAST REASON FOR EXAM: Female, 67 years old. Dilatation of the biliary tract with history of cholecystectomy 1983. TECHNIQUE: Standardized fat and water weighted pulse sequences were obtained in all 3 orthogonal planes. MRCP with 3-D volumetric reformatted images. COMPARISON: CTA chest 02/24/2018, CT abdomen and pelvis 02/24/2018.. FINDINGS: Osseous structures: L4-L5 grade 1 spondylolisthesis, with broad-based disc bulge and facet hypertrophy. Evidence of foraminal narrowing. Lateral recess encroachment. Correlate for symptoms of lumbar radiculopathy. No other significant spondylosis. Body wall soft tissues: No acute process. Inferior chest: No acute process. Spleen: Normal. Adrenal glands: Normal. Pancreas: Normal. No ductal ectasia. Stomach: Normal. Small and large bowel: Evaluated portions are normal. Urinary tract: Small left parapelvic cysts. Minimal right parapelvic cysts. Right renal superior pole cyst measuring 1.3 cm, concordant with benign features seen on CT abdomen and pelvis. Hepatobiliary: Cholecystectomy. Intrahepatic ductal ectasia. The hepatic duct measures up to 10 mm. The common bile duct entering the head of the pancreas measures up to 10 mm. Gradually tapering into the pancreatic head. Slender at the sphincter. No filling the defect. No evidence of choledocholithiasis. On series 10 image 15, MRCP, there appears to be mild prominence of the ampulla measuring about 7 x 4 mm. protruding into the lumen of the duodenum. Similar mild annular protrusion was seen in the coronal images on the recent CT scan of 02/24/2018. On that study the protrusion measured approximately 8 x 5 mm. MRI/MRCP Abdomen without Contrast IMPRESSION: No visible choledocholithiasis. Dilated common bile duct, hepatic duct and intrahepatic biliary tree. Nonspecific prominence of the ampulla slightly protruding into the 2nd portion of duodenum. This may be normal. If occult completely exclude the possibility of a small ampullary neoplasm. The patient would benefit from follow-up ERCP. Electronically Signed: Hugh Burgos MD at 17:54 EST Tel , Service support ,
== END ==
PROVIDERS: Family Provider Family Medicine; PCP Family Medicine; Referring Provider Family Medicine; Visit Provider Family Medicine
DX: K83.8 Other specified diseases of biliary tract (principal)
CPT/HCPCS: 74181

== ENCOUNTER → 2018-03-24 10:31 | Outpatient (CLI) | payer MEDICARE, BC, SELFPAY ==
[2018-03-24 09:46] VITALS: BMI 25.4
--- NOTE | 2018-03-24 10:35 | BI_ITS ---
MAMMOGRAPHY - BILATERAL SCREENING REASON FOR EXAM: Female, 67 years old. Routine annual screening examination. PERTINENT HISTORY: Mother with breast cancer. TECHNIQUE: Digital bilateral breast darinel (3D mammographic acquisition) in the CC and MLO projections. 2-D mediolateral oblique (MLO) and craniocaudad (CC) views of both breasts were obtained. CAD: Full Field Digital Mammography with Computer Added Detection was performed. COMPARISON: Comparison is made with prior examination dated September 23, 2016. FINDINGS: Breast Composition: There are scattered areas of fibroglandular density. There are no dominant masses or suspicious calcifications. No other significant abnormalities are identified. There has been no significant change since the prior study. BI/SCREENING MAMM (CAD), BILAT IMPRESSION: Stable bilateral screening mammogram. Yearly follow-up mammogram recommended. (A) ASSESSMENT CATEGORY: BIRADS Category 1: Negative. A letter regarding these results will be sent to the patient by the facility within 30 days. Approximately 10% of breast cancers are not detected by mammography. A normal mammogram should not delay biopsy of a clinically suspicious abnormality. [id number] Electronically Signed: Andrew Yee MD at 12:55 EST Tel [phone], Service support ,
[2018-03-29 13:55] LABS: HPV Reflexed? NOT INDICATED
== END ==
PROVIDERS: Family Provider Family Medicine; PCP Family Medicine; Referring Provider Nurse Practitioner Women's Health; Visit Provider Nurse Practitioner Women's Health
DX: Z12.31 Encounter for screening mammogram for malignant neoplasm of breast (principal); Z12.4 Encounter for screening for malignant neoplasm of cervix
CPT/HCPCS: 77063; 77067; 87624; 88175; G0145

== ENCOUNTER → 2019-04-12 12:13 | Outpatient (CLI) | payer OTHER, SELFPAY ==
[2018-03-24 09:46] VITALS: BMI 25.4
--- NOTE | 2019-04-12 12:15 | BI_ITS ---
MAMMOGRAPHY - BILATERAL SCREENING REASON FOR EXAM: Female, 68 years old. Routine annual screening examination. PERTINENT HISTORY: Mother with breast cancer. TECHNIQUE: Digital bilateral breast stephania (3D mammographic acquisition) in the CC and MLO projections. 2-D mediolateral oblique (MLO) and craniocaudad (CC) views of both breasts were obtained. CAD: Full Field Digital Mammography with Computer Added Detection was performed. COMPARISON: Comparison is made with prior study dated March 24, 2018. FINDINGS: Breast Composition: There are scattered areas of fibroglandular density. There are no dominant masses or suspicious calcifications. Stable scattered bilateral calcifications. No focal clustering is seen. No other significant abnormalities are identified. There has been no significant change since the prior study. BI/SCREEN MAMM (CAD) W/STEPHANIA BILAT IMPRESSION: Stable bilateral screening mammogram. Yearly follow-up mammogram recommended. (A) ASSESSMENT CATEGORY: BIRADS Category 2: Benign. A letter regarding these results will be sent to the patient by the facility within 30 days. Approximately 10% of breast cancers are not detected by mammography. A normal mammogram should not delay biopsy of a clinically suspicious abnormality. [id number] Electronically Signed: Andrew Yee, at 13:12 EST , Service support ,
== END ==
PROVIDERS: Family Provider Family Medicine; PCP Family Medicine; Referring Provider Nurse Practitioner Women's Health; Visit Provider Nurse Practitioner Women's Health
DX: Z12.31 Encounter for screening mammogram for malignant neoplasm of breast (principal); Z80.3 Family history of malignant neoplasm of breast
CPT/HCPCS: 77063; 77067

== ENCOUNTER → 2019-04-25 13:45 | Outpatient (CLI) | payer OTHER, SELFPAY ==
[2019-04-12 12:59] VITALS: BMI 25.4
--- NOTE | 2019-04-25 13:54 | BD_ITS ---
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 COMPARISON: None. FINDINGS: Lumbar Spine (L1-L4): g/cm2 (1.008) / T-score (-1.6) / Z-score (0.0) Findings are suggestive of osteopenia with a moderate fracture risk. Increased kyphosis. Left Femur Total: g/cm2 (0.815) / T-score (-1.5) / Z-score (-0.3) Left Femoral Neck: g/cm2 (0.772) / T-score (-1.9) / Z-score (-0.4) Right Femur Total: g/cm2 (0.793) / T-score (-1.7) / Z-score (-0.4) Right Femoral Neck: g/cm2 (0.780) / T-score (-1.9) / Z-score (10.3) BD/Dexa Bone Density Study IMPRESSION: The patient is considered osteopenic as outlined below according to World Chase Organization (WHO) criteria with a moderate fracture risk. Reference Information: The T-score is the number of standard deviations above or below the standard which is normal for young adults at their peak bone mineral density. The World Health Organization (WHO) interprets the T-scores as follows: Above -1 Normal bone density Between -1 and -2.5 Osteopenia Equal to / or below -2.5 Osteoporosis As a practical clinical guideline, osteopenia may be graded as follows: Mild -1 through -1.5 Moderate -1.6 through -2.0 Severe -2.1 through -2.4 The Z-score is the number of standard deviations above or below age-matched controls. A Z-score of less than -1.5 would be considered abnormal. References: 1. NIH Osteoporosis and Related Bone Diseases http://www.osteo.org 2. International Society for Clinical Densitometry http://www.iscd.org 3. National Osteoporosis Foundation http://www.nof.org Electronically Signed: Andrew Yee, at 16:01 EST , Service support ,
== END ==
PROVIDERS: PCP Family Medicine; Referring Provider Family Medicine; Visit Provider Family Medicine
DX: Z00.00 Encounter for general adult medical examination without abnormal findings (principal); Z78.0 Asymptomatic menopausal state
CPT/HCPCS: 77080

== ENCOUNTER 2019-05-28 07:32 | Inpatient (IN) | payer OTHER, MEDICARE, SELFPAY ==
[2019-04-12 12:59] VITALS: BMI 25.4
[2019-05-28] VITALS (10 sets, daily range): BP systolic 110–132; BP diastolic 50–63; PULSE 65–91; RESP 14–18; TEMP 36.4–36.9; O2SAT 96–100; BMI 27.4; BMI 26.6; BMI 26.7
--- NOTE | 2019-05-28 07:36 | RAD_ITS ---
STUDY: X-RAY CHEST REASON FOR EXAM: Female, 68 years old. Chest pain and cough TECHNIQUE: Single AP portable view of the chest. COMPARISON: 02/24/2018 FINDINGS: EKG leads overlie the chest The lungs are clear and expanded. There is no demonstrated pleural abnormality. Normal size heart. Normal mediastinum and kaitlin. Normal visualized pulmonary arteries. Normal visualized aortic arch and descending thoracic aorta. Normal visualized thoracic spine. Normal visualized ribs, clavicles, and shoulders. There is no demonstrated abnormality of the visualized soft tissue structures of the upper abdomen. RAD/Chest 1 View (Portable) IMPRESSION: Normal x-ray examination of the chest. Electronically Signed: Tonny Van MD at 8:17 EDT , Service support ,
--- NOTE | 2019-05-28 07:36 | EKG12_ITS ---
Test Reason : CP Blood Pressure : / mmHG Vent. Rate : 084 BPM Atrial Rate : 076 BPM P-R Int : 164 ms QRS Dur : 104 ms QT Int : 434 ms P-R-T Axes : 072 047 058 degrees QTc Int : 512 ms Sinus rhythm with frequent Premature ventricular complexes and Premature atrial complexes Incomplete right bundle branch block Prolonged QT Abnormal ECG Confirmed by JUDY LUO, GABRIELLE ([id number]), movie editor MEJIA MAK ([id number]) on 05/29/2019 3:19:02 PM Referred By: FOREST Confirmed By:GABRIELLE KIM MD
--- NOTE | 2019-05-28 07:43 | ED.VIS.GEN ---
History of Present Illness Chief Complaint: Chest Pain Informant: Patient Onset: Today Maximum Severity: Mild Narrative: Presents complaining of left-sided chest pressure that began this morning around 3 AM last for about 20 to 30 minutes mild shortness of breath and nausea resolved, then it reoccurred again and she was brought to the emergency room with . She has no history of AK PE or DVT reports family history of CAD with mother and father requiring CABG, non smoker, no diabetes. She is currently asymptomatic. No fever cough went to bed feeling fine no GI complaints Past Medical History - Allergies and Home Meds Allergies/Adverse Reactions: Allergies No Known Allergies Allergy (Verified 04/12/19 12:56) Primary Care Physician: Shimon Potts MD [Primary Care Provider] - Past Medical History: None Surgical History: cholecystectomy, - - section Smoking Status: Never smoker - Family History Maternal Family History: Reports: Heart Disease Paternal Family History: Reports: Heart Disease Review of Systems General: Denies: Chills, Fever, Sweats Eyes: Denies: Visual changes - bilaterally, Diplopia ENT: Denies: Rhinorrhea, Sore throat Cardiovascular: Reports: Chest pain. Denies: Palpitations Respiratory: Denies: Dyspnea, Cough, Dyspnea on exertion Gastrointestinal: Denies: Abdominal pain, Nausea, Vomiting, Diarrhea, Melena, Hematochezia Genitourinary: Denies: Dysuria, Hematuria, Frequency Musculoskeletal: Denies: Back pain, Extremity Pain Skin: Denies: Rash, Wounds Neurological: Denies: Headache, Weakness, Numbness Physical Exam Vital Signs/Narrative: Vital Signs Temp Pulse Resp BP Pulse Ox 05/28/19 07:40 100 05/28/19 07:33 97.6 F L 75 15 132/50 H 100 General: Well nourished, Well developed, No Acute Distress Head: Normocephalic, Atraumatic Eyes: Perrl, EOMI ENT: Moist mucous membranes, No rhinorrhea Neck: Supple, Nontender Cardiovascular: Regular rate, No murmurs, Irregular, - - She is known to have frequent PVCs at one point time she was in bigeminy Respiratory: No distress, CTA bilaterally, Chest nontender Abdomen: Soft, Nontender, Nondistended, Normal bowel sounds Back: Nontender, Normal Inspection Extremities: Nontender, No edema Skin: Normal color, No rash Neurological: Alert, Oriented x3, Cranial nerves II-XII grossly intact, Normal Strength, Normal Sensation Psychological: Normal affect, Normal Mood Diagnostic/Tx/Re-eval - Medical Decision Making Given all the above screening labs are obtained, EKG shows a sinus rhythm no acute injury pattern bigeminy she has no known history of cardiac dysrhythmia currently asymptomatic The patient screening labs chest x-ray are unremarkable she is remained stable here with no symptoms continues to have runs of PVCs. At this time given all the above I spoke with the hospitalist and the patient the plan is to admit for the management patient agrees Admit stable Final impression chest pain, frequent PVCs ED Disposition - Plan for ED Patient: Diagnosis: Chest pain Referrals: Shimon Potts MD [Primary Care Provider] -
[2019-05-28 07:47] LABS: Absolute Lymphocyte Count 2.73 X10^3/uL (0.83-4.51); Absolute Neutrophil Count 3.9 X10^3/uL (2.0-7.7); Basophil# 0.07 X10^3/uL; Basophil% 0.9 % (0-1); Eosinophil# 0.22 X10^3/uL; Eosinophils% 2.8 % (0-5); Hematocrit 42.6 % (37-47); Hemoglobin 14.1 g/dL (12.0-15.0); Lymphocyte # 2.73 X10^3/ul (4.0); Lymphocyte % 35.2 % (19-41); Mean Corp Hgb Conc 33.1 g/dL (32-36); Mean Corpuscular Hgb 31.7 pg (27.0-32.0); Mean Corpuscular Volume 95.7 fL (81-99); Mean Platelet Vol. 10.6 fl (6.2-12.0); Monocyte# 0.87 X10^3/uL; Monocyte% 11.2 % (0-10); NRBC Flagged by Analyzer 0 % (0-5); Neutrophil # 3.85 X10^3/uL (2.7-7.7); Neutrophil % 49.6 % (47-70); Platelet Count 286 K/mm3 (150-450); RBC Distribution Width SD 41.8 fl (35.1-43.9); Red Blood Count 4.45 M/mm3 (4.2-5.4); White Blood Count 7.8 K/mm3 (4.4-11.0)
[2019-05-28] MEDS: Aspirin 81 MG TAB.CHEW 324 MG PO (08:04)
[2019-05-28 08:07] LABS: Anion Gap 6 (5-15); BUN 20 mg/dL (7-18); BUN/Creat Ratio 25.7 RATIO (10-20); Calcium,Total 8.9 mg/dL (8.5-10.1); Chloride 106 mmol/L (98-107); Creatinine, Serum 0.78 mg/dL (0.55-1.02); EST Glomerular Filtration Rate 79 mL/min (>60); Est Glom Filt Rate - Afr Amer 95 mL/min (>60); Estimated Creatinine Clearance 53.81 ml/min; Glucose 96 mg/dL (74-106); Potassium 3.8 mmol/L (3.5-5.1); Sodium Level 139 mmol/L (136-145)
--- NOTE | 2019-05-28 09:55 | EKG12_ITS ---
Test Reason : CP Blood Pressure : / mmHG Vent. Rate : 069 BPM Atrial Rate : 069 BPM P-R Int : 170 ms QRS Dur : 100 ms QT Int : 440 ms P-R-T Axes : 071 036 059 degrees QTc Int : 471 ms Sinus rhythm with frequent Premature ventricular complexes Otherwise normal ECG Confirmed by ELIUD LUO, ROSEANNE ([id number]), editor & co founder TEOFILO ASCENCIO ([id number]) on 05/31/2019 10:00:13 AM Referred By: MONICA Confirmed By:ROSEANNE KLINE MD
--- NOTE | 2019-05-28 11:44 | PCM.HP.STD ---
<Ed Bliss - Last Filed: 05/28/19 11:44> Problem List (1) Chest pain Status: Acute History of Present Illness Date of Admission: 05/28/19 Chief Complaint: chest pain The patient is a 68 year old F no significant past medical history who presented to the emergency room with complaints of chest pain. This woke her up from sleep at about 3:00 in the morning today. She described as a left-sided under the breast aching pain that radiated into the left axillary area. The duration of the pain was approximately 20 to 30 minutes. She said it went away after she sat up in bed. After she laid back down it came back. She experienced 3 total episodes each about 20 minutes long. She had some nausea associated with it as well. She had no diaphoresis, no shortness of breath, no lightheadedness or dizziness. She does have family medical history positive for coronary artery disease stating that both of her parents had bypass surgeries in their 60s, her brother also has a history of blood clots. She did travel recently she flew to [place] and then took a cruise. She has had no fevers or chills, no nausea, vomiting, diarrhea, or respiratory symptoms. Chest pain is still coming and going presently. [] Past Medical History Allergies No Known Allergies Allergy (Verified 04/12/19 12:56) Home Medications: Ambulatory Orders Medication Instructions Recorded Multivitamins,Therapeutic 1 tab PO DAILY 07/20/13 [Multivitamin] Caltrate 1 tab PO DAILY 02/24/18 L. 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 Denies: Shortness of Breath, Shortness of breath at rest, Sputum production Gastrointestinal: Reports: Nausea. Denies: Abdominal Pain, Diarrhea, Vomiting Genitourinary: Denies: Dysuria Musculoskeletal: Denies: Joint Pain, Joint Tenderness Skin: Denies: Rash, Wounds Neurological: Denies: Numbness, Tingling, Focal weakness Psychiatric: Denies: Anxiety, Depression, Homicidal Ideations, Suicidal Ideations Hematologic/ Lymphatic: Denies: Easy Bruising, Easy Bleeding VTE Information - Inpt Only VTE Present on Admission: No VTE Mechan Device Prophylaxis: None VTE Pharm Prophylaxis ordered?: Yes Patient Problems: Active and Suspected Problems (Last Reviewed 04/12/19 @ 12:56 by Najma Phillips) Chest pain (Acute) - Physical Exam Vitals/I&O's: Vital Signs Temp Pulse Resp BP Pulse Ox 97.7 F L 68 16 116/53 L 96 05/28/19 09:46 05/28/19 11:29 05/28/19 09:46 05/28/19 09:46 05/28/19 09:46 Oxygen Delivery Method Room Air Weight: 170 lb 6.677 oz Body Mass Index (BMI) 26.6 General: Alert, Oriented x3, Cooperative HEENT: Atraumatic, PERRLA, EOMI, Normocephalic Neck: Supple, No JVD, Negative Carotid Bruits Lungs: Clear to auscultation, Normal air movement Cardiovascular: Regular rate, No murmurs Abdomen: Bowel Sounds Present, Soft, Non Tender Extremities: No edema, Capillary Refill Less than 3 Seconds Skin: No rashes, No breakdown Musculoskeletal: No Tenderness to Palpation of Joints or Extremities Neurological: Cranial nerves II-XII grossly intact Psych/Mental Status: Normal Affect, Appropriate Laboratory Results 05/28/19 07:35: WBC 7.8, RBC 4.45, Hgb 14.1, Hct 42.6, MCV 95.7, MCH 31.7, MCHC 33.1, RDW Std Deviation 41.8, RDW Coeff of Michele 12.0, Plt Count 286, MPV 10.6, Immature Gran % (Auto) 0.300, Neut % (Auto) 49.6, Lymph % (Auto) 35.2, [place] % (Auto) 11.2 H, Eos % (Auto) 2.8, Baso % (Auto) 0.9, Absolute Neuts (auto) 3.9, Absolute Lymphs (auto) 2.73, Nucleated RBC % 0 05/28/19 07:35: Sodium 139, Potassium 3.8, Chloride 106, Carbon Dioxide 27.0, Anion Gap 6, BUN 20 H, Creatinine 0.78, Estim Creat Clear Calc 53.81, Est GFR (MDRD) Af Amer 95, Est GFR (MDRD) Non-Af 79, BUN/Creatinine Ratio 25.7 H, Glucose 96, Calcium 8.9, Troponin I < 0.015 Current Medications Acetaminophen (Tylenol) 650 mg PO Q6H PRN PRN PRN Reason: Pain Score 1-10/Temp > 100.7 F Aspirin (Ecotrin) 81 mg PO DAILY@0800 TENZIN Glucagon () 1 mg IM .X1 PRN PRN Reason: Hypoglycemia Dextrose (Dextrose 10%-Water) 250 mls @ 999 mls/hr IV .Q16M PRN; Protocol PRN Reason: HYPOGLYCEMIA Nitroglycerin (Nitrostat) 0.4 mg SUBLINGUAL Q5M PRN PRN Reason: CARDIAC/CHEST PAIN Assessment/Plan All Active Problems (Last Reviewed 04/12/19 @ 12:56 by Najma Phillips) Chest pain (Acute) 1. Chest pain - + fm hx of CAD and blood clots. +recent travel. Trop neg. Tele and EKG show PVCs, otherwise no acute changes. CXR neg. Maintain on tele in PCU, cycle enzymes, check d dimer, stress test in AM, EKG in AM. DVT ppx: lovenox This patient was seen by Ed Bliss PA-C under the supervision of Doctor Amena. <Shimon Beckwith - Last Filed: 05/28/19 14:32> History of Present Illness The patient is a 68 year old F [] Past Medical History Allergies No Known Allergies Allergy (Verified 04/12/19 12:56) Surgical History: Surgical History (Last Reviewed 04/12/19 @ 12:56 by Najma Phillips) Cholecystectomy planned H/O section Z98.891 H/O tubal ligation Z98.51 - Physical Exam Vitals/I&O's: Vital Signs Temp Pulse Resp BP Pulse Ox 36.5 C L 68 16 116/53 L 96 05/28/19 09:46 05/28/19 11:29 05/28/19 09:46 05/28/19 09:46 05/28/19 09:46 Oxygen Delivery Method Room Air Weight: 77.3 kg Body Mass Index (BMI) 26.6 Intake and Output for Last 24 Hours 05/26/19 05/27/19 05/29/19 23:59 23:59 00:59 Intake Total 360 / 360 Balance 360 / 360 Laboratory Results 05/28/19 07:35: WBC 7.8, RBC 4.45, Hgb 14.1, Hct 42.6, MCV 95.7, MCH 31.7, MCHC 33.1, RDW Std Deviation 41.8, RDW Coeff of Michele 12.0, Plt Count 286, MPV 10.6, Immature Gran % (Auto) 0.300, Neut % (Auto) 49.6, Lymph % (Auto) 35.2, [place] % (Auto) 11.2 H, Eos % (Auto) 2.8, Baso % (Auto) 0.9, Absolute Neuts (auto) 3.9, Absolute Lymphs (auto) 2.73, Nucleated RBC % 0 05/28/19 07:35: Sodium 139, Potassium 3.8, Chloride 106, Carbon Dioxide 27.0, Anion Gap 6, BUN 20 H, Creatinine 0.78, Estim Creat Clear Calc 53.81, Est GFR (MDRD) Af Amer 95, Est GFR (MDRD) Non-Af 79, BUN/Creatinine Ratio 25.7 H, Glucose 96, Calcium 8.9, Troponin I < 0.015 05/28/19 09:35: D-Dimer Quant (PE/DVT) 0.39 05/28/19 09:35: Magnesium 2.1 05/28/19 12:03: Troponin I < 0.015 Current Medications Acetaminophen (Tylenol) 650 mg PO Q6H PRN PRN PRN Reason: Pain Score 1-10/Temp > 100.7 F Last Admin: 05/28/19 12:16 Dose: 650 mg Documented by: Aspirin (Ecotrin) 81 mg PO DAILY@0800 [facility] Glucagon () 1 mg IM .X1 PRN PRN Reason: Hypoglycemia Dextrose (Dextrose 10%-Water) 250 mls @ 999 mls/hr IV .Q16M PRN; Protocol PRN Reason: HYPOGLYCEMIA Nitroglycerin (Nitrostat) 0.4 mg SUBLINGUAL Q5M PRN PRN Reason: CARDIAC/CHEST PAIN Assessment/Plan Patient seen and examined independently. Data reviewed. I agree with the above note by the physician retirement assistant. [age]-year-old white female presents with chest pain that woke her this morning. Was left-sided that was more in the left aspect of her chest. Presented to the emergency room was noted to have PVCs but otherwise her work-up was unremarkable. The hospital service was contacted for admission. Physical exam: Heart is regular and rhythm plus S1-S2 with a murmurs capture rubs. Lungs are clear to auscultation bilaterally abdomen is soft nontender nondistended normal bowel sounds hepatosplenomegaly. Extremities are without any sinus clubbing or edema. No reproducible chest wall tenderness was able to be produced EKG personally reviewed and showed normal sinus rhythm with frequent PVCs. Chest x-ray personally reviewed and showed normal airways with no acute changes. Assessment plan: 1. Chest pain: Atypical. D-dimer was negative. Plan is for stress echocardiogram on the . OBSV E&M: [id number] Initial observation care L2
[2019-05-28 12:04] LABS: D-Dimer Quantitative (DVT/PE) 0.39 FEU/ug/m (0.27-0.49)
[2019-05-28] MEDS: Acetaminophen 325 MG Tablet 650 MG PO (12:16)
[2019-05-28 12:31] LABS: Magnesium 2.1 mg/dL (1.6-2.6)
[2019-05-29] VITALS (11 sets, daily range): BP systolic 115–131; BP diastolic 58–68; PULSE 42–86; RESP 18; TEMP 36.3–36.8; O2SAT 96–100
[2019-05-29] MEDS: Acetaminophen 325 MG Tablet 650 MG PO (02:09)
[2019-05-29] MEDS: Aspirin E.C. 81 MG Tablet PO (05:19)
--- NOTE | 2019-05-29 05:19 | EKG12_ITS ---
Test Reason : CP ADMIT Blood Pressure : / mmHG Vent. Rate : 079 BPM Atrial Rate : 065 BPM P-R Int : 166 ms QRS Dur : 106 ms QT Int : 422 ms P-R-T Axes : 071 050 063 degrees QTc Int : 483 ms Sinus rhythm with frequent Premature ventricular complexes Confirmed by ELIUD LUO, ROSEANNE ([id number]), editor & co founder TEOFILO ASCENCIO ([id number]) on 05/31/2019 10:02:26 AM Referred By: LUBA Confirmed By:ROSEANNE KLINE MD
[2019-05-29] MEDS: Nitroglycerin (INPATIENT USE) 0.4 MG TAB.SUBL SUBLINGUAL (05:37)
--- NOTE | 2019-05-29 05:55 | STE_ITS ---
Reason For Study: Chest Pain Stress Results Protocol: Jamie Protocol Maximum Predicted HR: 154 bpm Target HR: 131 bpm % Maximum Predicted HR: 85 % DurationHeart Rate Stage (mm:ss) (bpm) BP Comment Baseline 71 108/64No Chest Pain Jamie Protocol Stage I 3:00 103 110/68No Chest Pain Jamie Protocol Stage II 3:00 114 128/62No Chest Pain; Mild Dyspnea Jamie Protocol Stage III 3:00 131 140/68No Chest Pain; Mild Dyspnea Recovery 90 118/64No Chest Pain Stress Duration: 9:00 mm:ss Maximum Stress HR: 131 bpm METS: 10 Baseline Echocardiogram Findings Stress Echo Wall motion Data Resting WM Intermediate WM Stress WM Interpretation Summary Exercise stress echo. 68-year-old lady with a history of family history of coronary artery disease. Stress protocol: Resting EKG demonstrates normal sinus rhythm with a rate of 83 bpm and premature ventricular complexes noted. The patient exercised according to regular Jamie protocol for a total duration of 9 minutes. The maximum heart rate attained was 133 bpm which was 86% of maximum predicted heart rate the maximum workload attained was 10.1 metabolic equivalents. The patient maintained sinus rhythm throughout the recording. At rest there were no ST changes noted suggest ischemia peak exercise upsloping ST changes only were noted with no meet the criteria for ischemia. The test was terminated due to leg discomfort. The resting blood pressure was 108/64 with a peak blood pressure 140/68 mmHg and a rate-pressure product of 18,300. Resting and stress echocardiographic images. The resting echocardiographic images demonstrated low normal ejection fraction of approximately 50% with severe hypokinesis to akinesis of the basal inferior wall, basal inferior septal wall. During rest there was improvement in all segments except for the aforementioned areas. The low ventricular ejection fraction improved to approximately 60 to 65%. There were numerous episodes of premature ventricular complexes, and short nonsustained runs noted. The above were asymptomatic. The above is suggestive of a previous basal inferior, and basal inferior septal infarct. No obvious ischemia is noted. Conclusion: Exercise stress echocardiogram with no evidence of ischemia noted at a high workload. Previous basal inferior and basal inferoseptal infarct cannot be excluded. Low normal ejection fraction of 50%. Ordering Physician: Shimon Beckwith Referring Physician: Luis Tam Performed By: Sole Soto, ROSELIA, RVT
[2019-05-29 06:28] LABS: Anion Gap 7 (5-15); BUN 17 mg/dL (7-18); BUN/Creat Ratio 24.4 RATIO (10-20); Calcium,Total 8.7 mg/dL (8.5-10.1); Chloride 108 mmol/L (98-107); EST Glomerular Filtration Rate 89 mL/min (>60); Est Glom Filt Rate - Afr Amer 108 mL/min (>60); Estimated Creatinine Clearance 53.81 ml/min; Glucose 91 mg/dL (74-106); Potassium 4.3 mmol/L (3.5-5.1); Sodium Level 139 mmol/L (136-145)
--- NOTE | 2019-05-29 09:07 | PCA ---
pt off floor
--- NOTE | 2019-05-29 11:52 | CASEMGMT ---
Case Management Progress Note: This radio script writer to patient bedside, introduced self and role. Explained/reviewed EISENBERG form with patient in regards to current treatment this hospital stay. Informed Outpatient billing is determined by insurance policy and continual review is conducted to determine any changes in condition that may warrant Inpatient stay. Questions addressed, advised to speak with her insurance and/or [facility] hospital financial dept for any further questions/concerns regarding billing. Acknowledges and states understanding. Signed EISENBERG form which was placed in hard chart and provided patient with a copy. Azra Diana RNCM
--- NOTE | 2019-05-29 15:18 | PCA ---
pt out walking in the bose
--- NOTE | 2019-05-29 15:59 | CON.PCM_ITS ---
Reason for Consult Date of Consultation: 05/29/19 Reason for Consultation: Chest pain and abnormal stress echo History of Present Illness: The patient is a 68 year old F no significant past medical history who presented to the emergency room with complaints of chest pain. This woke her up from sleep at about 3:00 in the morning today. She described as a left-sided under the breast aching pain that radiated into the left axillary area. The duration of the pain was approximately 20 to 30 minutes. She said it went away after she sat up in bed. After she laid back down it came back. She experienced 3 total episodes each about 20 minutes long. She had some nausea associated with it as well. She had no diaphoresis, no shortness of breath, no lightheadedness or dizziness. She does have family medical history positive for coronary artery disease stating that both of her parents had bypass surgeries in their 60s, her brother also has a history of blood clots. She did travel recently she flew to [place] and then took a cruise. This was in April and she has had no fevers or chills, no nausea, vomiting, diarrhea, or respiratory symptoms. Chest pain is still coming and going occasionally. She underwent exercise stress echocardiographic evaluation this morning and there were no ischemia was noted she did have an akinetic basal inferior wall with frequent nonsustained ventricular tachyarrhythmias. She has continued to have occasional chest discomfort. Due to the above cardiology was consulted. [] Past Medical History Allergies/Adverse Reactions: Allergies No Known Allergies Allergy (Verified 04/12/19 12:56) Home Medications: Ambulatory Orders Medication Instructions Recorded Multivitamins,Therapeutic 1 tab PO DAILY 07/20/13 [Multivitamin] Caltrate 1 tab PO DAILY 02/24/18 L. Acidophilus/Pectin, [place] 1 ea PO DAILY 02/24/18 [Acidophilus-Pectin Capt[place]] Cholecalciferol (Vitamin D3) 2,000 unit PO DAILY 05/28/19 [Vitamin D3] Surgical History: cholecystectomy, - - section Psychiatric History: No pertinent psych hx [employer] ENG[employer] HAND History: No pertinent SO[employer] ENG[employer]VER HAND history - *Family History Maternal History Items: Heart Disease Paternal History Items: Heart Disease Sibling History Items: - - blood clots Lives: Spouse/ Significant Other Smoking Status: Never smoker Tobacco Use: Non-smoker Alcohol: None Drugs: None Review of Systems - Review of Systems General: Denies: Fever, Night Sweats, Fatigue HEENT: Denies: Vision Change Cardiovascular: Reports: Chest Discomfort, Chest Discomfort at Rest. Denies: Shortness of Breath, Orthopnea, PND, Peripheral Edema, Palpitations, Lightheadedness, Dizziness, Near Syncope, Syncope Respiratory: Denies: Cough, Sputum Production, Hemoptysis Gastrointestinal: Denies: Hematemesis, Hematochezia, Melena Genitourinary: Denies: Dysuria, Hematuria Skin: Denies: Rash Neurological: Denies: Dizziness Psychiatric: Reports: Anxiety Endocrine: Denies: Heat Intolerance Hematologic/ Lymphatic: Denies: Lymph Node Enlargement Subjectve: Pleasant lady in no distress at this time Objective: Vital Signs Temp Pulse Resp BP Pulse Ox 98.0 F 86 18 118/66 98 05/29/19 15:00 05/29/19 15:12 05/29/19 15:00 05/29/19 15:00 05/29/19 15:00 Oxygen Delivery Method Room Air Weight: 170 lb 6.677 oz Body Mass Index (BMI) 26.6 Intake and Output for Last 24 Hours 05/27/19 05/28/19 05/29/19 22:59 23:59 23:59 Intake Total 360 / 360 Balance 360 / 360 General: Awake, Alert, Oriented x 3 HEENT: PERRL, EOMI, Sclera Non Icteric Neck: Supple, Good ROM, No Lymph Node Enlargement Lungs: Clear to auscultation Cardiovascular: Regular Rhythm, Normal S1, Normal S2, No Murmurs, No Rubs, No Gallops Vascular: No Carotid Bruits, Normal Femoral Pulses, Normal Radial Pulses, Normal Dorsalis Pedal Pulse, Normal Posterior Tibial Pulses Abdomen: Bowel Sounds Present, Soft, Non Tender, No HSM, No Organomegaly Extremities: No Cyanosis, No Clubbing, No edema Musculoskeletal: No Erythema Skin: No Rashes Lymphatic: No Lymph Node Enlargement Neurological: No Focal Motor or Sensory Deficit Psych/Mental Status: Appropriate 05/28/19 18:20: Troponin I < 0.015 05/29/19 05:32: Sodium 139, Potassium 4.3, Chloride 108 H, Carbon Dioxide 24.0, Anion Gap 7, BUN 17, Creatinine 0.70, Est GFR (MDRD) Af Amer 108, Est GFR (MDRD) Non-Af 89, BUN/Creatinine Ratio 24.4 H, Glucose 91, Calcium 8.7 Rhythm: EKG: Normal sinus rhythm with no acute changes. 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 No obvious ischemia was noted. Nonsustained ventricular tachycardia was noted. Cardiac Cath: PCI: CT Surgery: Holter monitor: EPS: PPM: CXR: Chest CT Scan: Assessment/Plan 1. Chest pain * Patient presents with chest discomfort which is noted to be somewhat atypical. She however does have a stress test which is abnormal with evidence of a previous infarct. My recommendation would be to pursue the above with a cardiac catheterization. The reasoning behind this is the nonsustained ventricular tachycardia as well as the patient's anxiety level on wanting to know and make sure that there is no evidence of obstructive coronary disease especially with a very strong family history. She did exercise to a moderate workload which does not completely exclude coronary ischemia. I have discussed this with the patient and the family and they understand and agree to proceed. * Will recommend starting aspirin * Will load with clopidogrel tonight * Will perform cardiac catheterization in a.m. * Depending on the results further recommendations will be made
--- NOTE | 2019-05-29 16:35 | PCM.PN.HOSP ---
<Ed Bliss - Last Filed: 05/29/19 16:35> Patient Problems: Active and Suspected Problems (Last Reviewed 04/12/19 @ 12:56 by Najma Phillips) Chest pain (Acute) Reason for Visit: Chest pain Subjective: Patient tolerated the stress test well this morning, she did not have any issues during it. Afterwards she continued to have intermittent chest pain-this was described as a left-sided aching that radiates into the axilla. She has no shortness of breath, nausea, sweating. She had an area on her stress test that showed a possible old infarct. Cardiology was consulted and she plans on pursuing a heart catheterization in the morning. She has no lightheadedness, dizziness, palpitations, shortness of breath, lower extremity edema, no recent illness or infection, no cough, nausea, vomiting, diarrhea. Vitals/I&O's: Vital Signs Temp Pulse Resp BP Pulse Ox 98.0 F 86 18 118/66 98 05/29/19 15:00 05/29/19 15:12 05/29/19 15:00 05/29/19 15:00 05/29/19 15:00 Oxygen Delivery Method Room Air Weight: 170 lb 6.677 oz Body Mass Index (BMI) 26.6 Intake and Output for Last 24 Hours 05/27/19 05/28/19 05/29/19 22:59 23:59 23:59 Intake Total 360 / 360 Balance 360 / 360 General: Alert, Oriented x3, Cooperative HEENT: Atraumatic, PERRLA, EOMI, Normocephalic Neck: Supple, No JVD, Negative Carotid Bruits Lungs: Clear to auscultation, Normal air movement Cardiovascular: Regular rate, No murmurs Abdomen: Bowel Sounds Present, Soft, Non Tender Extremities: No edema, Capillary Refill Less than 3 Seconds Skin: No rashes, No breakdown Musculoskeletal: No Tenderness to Palpation of Joints or Extremities Neurological: Cranial nerves II-XII grossly intact Psych/Mental Status: Normal Affect, Appropriate, Alert and oriented to time, place, person, mood and affect Laboratory Results 05/28/19 18:20: Troponin I < 0.015 05/29/19 05:32: Sodium 139, Potassium 4.3, Chloride 108 H, Carbon Dioxide 24.0, Anion Gap 7, BUN 17, Creatinine 0.70, Estim Creat Clear Calc 53.81, Est GFR (MDRD) Af Amer 108, Est GFR (MDRD) Non-Af 89, BUN/Creatinine Ratio 24.4 H, Glucose 91, Calcium 8.7 Current Medications Acetaminophen (Tylenol) 650 mg PO Q6H PRN PRN PRN Reason: Pain Score 1-10/Temp > 100.7 F Last Admin: 05/29/19 02:09 Dose: 650 mg Documented by: Aspirin (Ecotrin) 81 mg PO DAILY@0800 TENZIN Last Admin: 05/29/19 05:19 Dose: 81 mg Documented by: Clopidogrel Bisulfate (Plavix) 75 mg PO DAILY [facility] Glucagon () 1 mg IM .X1 PRN PRN Reason: Hypoglycemia Dextrose (Dextrose 10%-Water) 250 mls @ 999 mls/hr IV .Q16M PRN; Protocol PRN Reason: HYPOGLYCEMIA Sodium Chloride () 1,000 mls @ 15 mls/hr IV .Q48H [facility] Nitroglycerin (Nitrostat) 0.4 mg SUBLINGUAL Q5M PRN PRN Reason: CARDIAC/CHEST PAIN Last Admin: 05/29/19 05:37 Dose: 0.4 mg Documented by: STROKE Vital Signs/Narrative: Vital Signs Temp Pulse Resp BP Pulse Ox 05/29/19 15:12 86 05/29/19 15:00 98.0 F 66 18 118/66 98 Medical Necessity - Tobacco Use Smoking Status: Never smoker Tobacco Use: Non-smoker Assessment/Plan All Active Problems (Last Reviewed 04/12/19 @ 12:56 by Najma Phillips) Chest pain (Acute) 1. Chest pain -stress test with possible old infarction, she also had nonsustained V. tach during the stress test. Cardiology consulted. Heart cath in AM. D-dimer was negative. Troponin negative x3. EKG negative. Will obtain FLP. Both parents had a history of coronary artery bypass surgery in their 60s. She has been started on aspirin and Plavix. DC planning: Cath in AM. This patient was seen by Ed Bliss PA-C under the supervision of Doctor Welch <Ubaldo Welch - Last Filed: 05/29/19 16:55> Vitals/I&O's: Vital Signs Temp Pulse Resp BP Pulse Ox 98.0 F 86 18 118/66 98 05/29/19 15:00 03/09/20 15:12 05/29/19 15:00 05/29/19 15:00 05/29/19 15:00 Oxygen Delivery Method Room Air Weight: 77.3 kg Body Mass Index (BMI) 26.6 Intake and Output for Last 24 Hours 05/27/19 05/28/19 05/29/19 22:59 23:59 23:59 Intake Total 360 / 360 Balance 360 / 360 Laboratory Results 05/28/19 18:20: Troponin I < 0.015 05/29/19 05:32: Sodium 139, Potassium 4.3, Chloride 108 H, Carbon Dioxide 24.0, Anion Gap 7, BUN 17, Creatinine 0.70, Estim Creat Clear Calc 53.81, Est GFR (MDRD) Af Amer 108, Est GFR (MDRD) Non-Af 89, BUN/Creatinine Ratio 24.4 H, Glucose 91, Calcium 8.7 Current Medications Acetaminophen (Tylenol) 650 mg PO Q6H PRN PRN PRN Reason: Pain Score 1-10/Temp > 100.7 F Last Admin: 05/29/19 02:09 Dose: 650 mg Documented by: Aspirin (Ecotrin) 81 mg PO DAILY@0800 [facility] Last Admin: 05/29/19 05:19 Dose: 81 mg Documented by: Clopidogrel Bisulfate (Plavix) 75 mg PO DAILY [facility] Glucagon () 1 mg IM .X1 PRN PRN Reason: Hypoglycemia Dextrose (Dextrose 10%-Water) 250 mls @ 999 mls/hr IV .Q16M PRN; Protocol PRN Reason: HYPOGLYCEMIA Sodium Chloride () 1,000 mls @ 15 mls/hr IV .Q48H [facility] Last Admin: 05/29/19 16:44 Dose: Not Given Documented by: Nitroglycerin (Nitrostat) 0.4 mg SUBLINGUAL Q5M PRN PRN Reason: CARDIAC/CHEST PAIN Last Admin: 05/29/19 05:37 Dose: 0.4 mg Documented by: STROKE Vital Signs/Narrative: Vital Signs Temp Pulse Resp BP Pulse Ox 05/29/19 15:12 86 05/29/19 15:00 98.0 F 66 18 118/66 98 Assessment/Plan This patient was seen in conjunction with Ed Loya I have independently interviewed and examined the patient and reviewed pertinent historical, laboratory, and other data. Please refer to Ed johnson for details of this patient's presentation, findings, and recommendations. I have reviewed Ed Bliss PA-C note and concur with documented findings. In brief, patient is a 62-year-old lady admitted with chest pain Physical Examination: GENERAL: Cooperative HEENT: Atraumatic; EYES; Anicteric, NECK; supple, normal thyroid, RESPIRATORY: Diminished to auscultation CARDIOVASCULAR: Regular S1 S2, GI: soft, normoactive bowel sounds, : No Renal angle tenderness; NEURO: Awake; no lateralizing signs. SKIN: No Rash PSYCH; Flat affect Assessment: 1. Chest pain 2. Family history of premature CAD Recommendations: 1. I have discussed the results of my overview and impressions with the patient 2. Options for management were reviewed OBSV E&M: 21103 Subsequent observation care L2
[2019-05-29] MEDS: Clopidogrel Bisulfate 300 MG Tablet PO (17:01)
[2019-05-30] VITALS (23 sets, daily range): BP systolic 86–122; BP diastolic 37–69; PULSE 59–81; RESP 14–18; TEMP 36.6–37; O2SAT 94–100
[2019-05-30] MEDS: Acetaminophen 325 MG Tablet 650 MG PO (02:49)
[2019-05-30 04:14] LABS: Magnesium 2.3 mg/dL (1.6-2.6)
[2019-05-30 04:25] LABS: Cholesterol 216 mg/dL (200); High Density Lipoprotein 66 mg/dL; Triglycerides 93 mg/dL; Very Low Density Lipoprotein 19 mg/dL (5-40)
[2019-05-30] MEDS: Clopidogrel Bisulfate 75 MG Tablet PO (05:46)
[2019-05-30] MEDS: Aspirin E.C. 81 MG Tablet PO (05:46)
--- NOTE | 2019-05-30 05:55 | EKG12_ITS ---
Test Reason : AM EKG Blood Pressure : / mmHG Vent. Rate : 081 BPM Atrial Rate : 068 BPM P-R Int : 172 ms QRS Dur : 102 ms QT Int : 434 ms P-R-T Axes : 080 038 065 degrees QTc Int : 504 ms Normal sinus rhythm with PVC's Prolonged QT Abnormal ECG When compared with ECG of 29-MAY-2019 05:23, MANUAL COMPARISON REQUIRED, DATA IS UNCONFIRMED Confirmed by CHARY VERDUZCO ([id number]), development editor RAIN ELIZABETH ([id number]) on 06/01/2019 7:40:00 AM Referred By: DR GARAY Confirmed By:CHARY VERDUZCO
--- NOTE | 2019-05-30 08:15 | PN.CARD_ITS ---
Subjectve: Patient seen and evaluated. Objective: Vital Signs Temp Pulse Resp BP Pulse Ox 98.5 F 81 14 113/63 96 05/30/19 05:50 05/30/19 07:05 05/30/19 05:50 05/30/19 05:50 05/30/19 05:50 Oxygen Delivery Method Room Air Weight: 170 lb 6.677 oz Body Mass Index (BMI) 26.6 Intake and Output for Last 24 Hours 05/28/19 05/29/19 05/30/19 23:59 23:59 23:59 Intake Total 920 / 920 Balance 920 / 920 General: Awake, Alert, Oriented x 3 HEENT: PERRL, EOMI, Sclera Non Icteric Neck: Supple, Good ROM, No Lymph Node Enlargement Lungs: Clear to auscultation Cardiovascular: Regular Rhythm, Normal S1, Normal S2, No Murmurs, No Rubs, No Gallops Vascular: No Carotid Bruits, Normal Femoral Pulses, Normal Radial Pulses, Normal Dorsalis Pedal Pulse, Normal Posterior Tibial Pulses Abdomen: Bowel Sounds Present, Soft, Non Tender, No HSM, No Organomegaly Extremities: No Cyanosis, No Clubbing, No edema Musculoskeletal: No Erythema Skin: No Rashes Lymphatic: No Lymph Node Enlargement Neurological: No Focal Motor or Sensory Deficit 05/30/19 03:54: Triglycerides 93, Cholesterol 216 H, LDL Cholesterol 131 H, VLDL Cholesterol 19, HDL Cholesterol 66 05/30/19 03:54: Magnesium 2.3 Rhythm: EKG: ECHO: Stress Test: Cardiac Cath: PCI: CT Surgery: Holter monitor: EPS: PPM: CXR: Chest CT Scan: Medical Necessity - Tobacco Use Smoking Status: Never smoker Tobacco Use: Non-smoker Assessment/Plan 1. Chest pain * Patient presents with chest discomfort which is noted to be somewhat atypical. * She underwent cardiac catheterization which demonstrated mild first diagonal vessel disease. The left anterior descending artery, circumflex artery and right coronary artery were noted to be normal. Ejection fraction was noted to be fairly normal. * Can probably discharge home later today 2. Premature ventricular complexes * Patient noted to have significant premature ventricular complexes. The etiology is unclear. Her low ventricular ejection fraction appears to be fairly normal. * I would recommend beta-jyoti with Lopressor 25 mg twice a day * * Thank you for allowing me to participate in the care of your patient. Please don't hesitate to call if any issues arise
--- NOTE | 2019-05-30 08:22 | CL.D_ITS ---
Patient Name: DEVANG YOUSSEF Study Date: 05/30/2019 Performing: Luis Tam MD Ht: 66.92 inches 170 cm : 1950 Wt: 169.76 lbs 77 kg Age: 68 Gender: female BSA: 1.88 PROCEDURE(S) PERFORMED DY20-AXH/COR/LV CLINICAL PROFILE AND INDICATIONS Indications: Suspected CAD Heart Failure: None Stress/Imaging Stress Echocardiogram: Yes Result: Positive Low RiskStress Echocardiogram: Positiv e Low Risk CAD Presentations: Symptom unlikely to be ischemic. CONCLUSIONS Mild CAD noted in the first diagonal vessel RECOMMENDATIONS Medical therapy DESCRIPTION OF PROCEDURE The patient arrived to the procedure lab. The risks and benefits of the procedure as well as a full d escription of our services here and current unavailability of surgical backup were fully explained to the patient and/or their significant other prior to the catheterization. The Timeout was completed, verifying the correct patient and procedure. The patient's procedural site was prepped and draped in the usual fashion. Local anesthetic was given subcutaneously to right groin region with Lidocaine 2%. Using a modified Seldinger technique, arterial access was obtained via the right femoral artery, a 5 Fr sheath was inserted. Left Coronary Artery selective angiography was performed in multiple views u sing a 5 Fr. JL4 catheter. Right Coronary Artery selective angiography was then performed in multiple views using a 5 Fr. 3DRC (Eddie) catheter. Left Ventriculography was performed in DEAN projection using a 5 Fr. Pigtail catheter. LV to AO pullback pressures were then recorded.Contrast was injected through the sheath and the Right Iliac and Femoral artery were assessed for possible krystle sure device.The arterial sheath was pulled and a Mynx closure device was deployed for hemostasis CORONARY ANGIOGRAPHY DOMINANCE: Right Dominant LEFT HEART ASSESSMENT Left Ventricular Ejection Fraction: by LV Gram 53 % Anterior Hypokinesis - Mild Normal Left Ventricular systolic function LEFT MAIN: Angiographically normal LEFT ANTERIOR DESCENDING ARTERY: No significant disease noted DIAGONAL 1: Ostial - 60 % Stenosis CIRCUMFLEX ARTERY: No significant disease noted RIGHT CORONARY ARTERY: No significant disease noted COMPLICATIONS No Complications PROCEDURE MEDICATIONS Versed 1 mg IV Versed 1 mg IV Fentanyl 25 mcg IV Oxygen: 2 L/min via nasal cannula IV Bolus: .9 NaCl open ml total 05/30/2019 08:18:57 SUMMARY OF HEMODYNAMIC DATA Time AIR REST ECG 07:36:46 AO 112/48 (67) SA 07:49:50 LV 122/-4, 1 07:55:16 LV 121/-1, 2 07:55:23 LV 104/-1, 4 07:56:17 LVp 107/0, 2 07:56:21 AOp 124/61 (85) 07:56:26 Signed By Luis Tam MD On 05/30/2019 08:21:43 Luis Tam MD
--- NOTE | 2019-05-30 09:22 | ECHOL_ITS ---
Reason For Study: CHEST PAIN Procedure This was a limited 2D transthoracic echocardiogram. Limited views were obtained. Exam performed with patient in supine position due to S/P heart catherization. Exam performed portable in patient room. Left Ventricle Normal LV size. The estimated ejection fraction is 55 %. No regional wall motion abnormalities noted. Pericardium/Pleural No pericardial effusion. MMode/2D Measurements & Calculations LVIDd: 5.0 cm IVSd: 0.97 cm Ao root diam: 3.3 cm LVIDs: 3.9 cm LVPWd: 0.90 cm LA dimension: 3.3 cm RVDd: 3.1 cm FS: 22.8 % LAV(MOD-bp): 47.4 ml LA A4 area: 17.1 cm2 RA A4 area: 14.8 cm2 LAV(MOD-bp) Indexed: 25.1 ml/m2 LAV(MOD-sp2): 42.0 ml LAV(MOD-sp4): 47.4 ml Interpretation Summary Normal LV size. The estimated ejection fraction is 55 %. No obvious wall motion abnormalities noted. This is in contradistinction to the previous stress echo images. Ordering Physician: Luis Tam Referring Physician: Shimon Potts Performed By: Arleen Betancur, RDCS, RVT
--- NOTE | 2019-05-30 09:28 | CT_ITS ---
STUDY: CTA CHEST REASON FOR EXAM: Female, 68 years old. CHEST PAIN . S/p heart cath just prior to ct scan RADIATION DOSAGE (If Supplied By Facility): CTDIvol = ( 11.20 ) mGy, DLP = ( 337.34 ) mGycm TECHNIQUE: The examination was performed with the intravenous administration of 75 ml isovue 370. Post-processing of the angiographic images was performed, with multiplanar reformation and 3D reconstruction. Individualized dose optimization techniques were used for this CT. COMPARISON: Comparison is made with prior study dated February 24, 2018. FINDINGS: Normal enhancement of the main pulmonary artery and right and left pulmonary arteries. Normal enhancement of the bilateral peripheral pulmonary arteries. There is no demonstrated pulmonary embolism. Normal thoracic aorta and visualized great vessels. There is no demonstrated aortic dissection. Normal heart and pericardium. Normal mediastinum. Normal hilar regions. Normal visualized trachea and bronchi. The lungs are well expanded. Mild degree of increased markings at the lung bases suggestive of bibasilar atelectasis. Normal pleura. Normal chest wall structures. There are degenerative changes of thoracic spine. Normal visualized upper abdomen. CT/CTA Chest W/WO Contrast IMPRESSION: There is no evidence of palm embolism. Mild degree of increased markings at the lung bases suggestive of dependent bibasilar atelectasis. Electronically Signed: Andrew Yee, at 11:30 EDT , Service support ,
[2019-05-30] MEDS: 0.9% Normal Saline 1,000 ML 100 ML IV (09:46)
[2019-05-30] MEDS: Ondansetron 4 MG/2 ML Vial IV (09:46)
--- NOTE | 2019-05-30 09:53 | DCINST_ITS ---
- Discharge Diagnoses Current Active Problems: Current Active and Chronic Problems (Last Updated 05/30/19 @ 08:37 by Casie Beasley) Atherosclerosis of coronary artery of [place] heart without angina pectoris (Chronic) Mild CAD noted in the first diagonal vessel. Medical therapy recommended. 05/30/2019 History of left heart catheterization (Chronic 05/30/19) Mild CAD noted in the first diagonal vessel. Medical therapy recommended. 05/30/2019 Chest pain (Acute) You will use the following diet at home:: Cardiac Your food should be the consistency of: Regular Your liquids should be the consistency of: Regular/Thin Discharge Activity: Return to Normal Activity Allergies/Adverse Reactions: Allergies No Known Allergies Allergy (Verified 04/12/19 12:56) Medications to take at Discharge Multivitamins,Therapeutic [Multivitamin] 1 tab PO DAILY 07/20/13 Caltrate 1 tab PO DAILY 02/24/18 L. Acidophilus/Pectin, [place] [Acidophilus-Pectin [place]] 1 ea PO DAILY 02/24/18 Cholecalciferol (Vitamin D3) [Vitamin D3] 2,000 unit PO DAILY 05/28/19 Aspirin E.C. [Ecotrin] 81 mg PO DAILY@0800 tab 05/30/19 Atorvastatin Calcium [Lipitor] 40 mg PO QHS #30 tab 05/30/19 Metoprolol Tartrate [Lopressor (beta jyoti)] 25 mg PO BID #60 tab 05/30/19 The following prescriptions were given: Atorvastatin Calcium [Lipitor] 40 mg PO QHS #30 tab Transmission Status: Received by [id number] Metoprolol Tartrate [Lopressor (beta jyoti)] 25 mg PO BID #60 tab Transmission Status: Received by [id number] Primary Care Physician: Shimon Potts MD [Primary Care Provider] - Please follow up with your Primary Care Physician in: 1-2 weeks Test Results: Test results from this visit will be discussed in further detail at your follow- up appointment, if applicable. Please Follow Up With: Luis Tam MD When: as directed Proposed Discharge Date: 05/30/19
[2019-05-30] MEDS: Metoprolol Tartrate 25 MG Tablet PO (10:48)
[2019-05-30] MEDS: Ketorolac 15 MG/ML Vial IV ×2 (12:32→21:09)
--- NOTE | 2019-05-30 13:25 | CASEMGMT ---
RN CM Assessment Introduced role of RN CM to patient and Mike at bedside.? Patient is alert, oriented and able?to participate in RN CM Assessment. ?Care providers, pharmacy, and demographics verified. Presentation: CP Admit Dx: CP Re-Admit: No Barriers/Issues: None. States that she is still having CP but her cardiac cath was negative. PCP: Shimon Potts Specialists: None. Plans to start f/u specialist. Preferred [facility]acy: [facility] Insurance: Mcr A, [employer]. (Patient states that she used to have [employer] A[employer]B when she retired but went back to work dropping Mcr part B, states [employer] is her primary and Mcr A is secondary) Rx Benefit:?Yes ?LNOK: Mike Obbreonna LW/HPOA: States has completed both, aware not on file with [facility] and if brought in will place a copy on file. HPOA- Mike Rosa Living Arrangements:? Lives with in a H, 2 steps to enter ADL?s: Independent with ambulation and ADLs Transportation: both patient and drives DME: None HHC: none SNF: None Goal: Home and does not think will have any needs. Denies any issues, concerns, needs or questions with DC planning at this time. Aware CM remains available for any emerging needs. DC PLAN: Home with no anticipated needs identified at this time. BIANKA Chris
--- NOTE | 2019-05-30 13:29 | PN_ITS ---
<Ed Bliss - Last Filed: 05/30/19 13:29> Patient Problems: Active and Suspected Problems (Last Updated 05/30/19 @ 08:37 by Casie Beasley) Chest pain (Acute) Subjective: Post cath increased nausea and vomiting, left sided aching chest pain radiating in to the axilla (L). Pt tearful. BP borderline, pt will stay overnight. Cath negative. No SOB, palpitations. Vitals/I&O's: Vital Signs Temp Pulse Resp BP Pulse Ox 98.2 F 59 L 16 99/47 L 97 05/30/19 12:29 05/30/19 12:29 05/30/19 12:29 05/30/19 12:29 05/30/19 12:29 Oxygen Flow Rate (L/min) 2 Oxygen Delivery Method Room Air Weight: 170 lb 6.677 oz Body Mass Index (BMI) 26.6 Intake and Output for Last 24 Hours 05/28/19 05/29/19 05/30/19 23:59 23:59 23:59 Intake Total 920 / 920 76.67 / 76.67 Balance 920 / 920 76.67 / 76.67 General: Alert, Oriented x3, Cooperative HEENT: Atraumatic, PERRLA, EOMI, Normocephalic Neck: Supple, No JVD, Negative Carotid Bruits Lungs: Clear to auscultation, Normal air movement Cardiovascular: Regular rate, No murmurs Abdomen: Bowel Sounds Present, Soft, Non Tender Extremities: No edema, Capillary Refill Less than 3 Seconds Skin: No rashes, No breakdown Musculoskeletal: No Tenderness to Palpation of Joints or Extremities Neurological: Cranial nerves II-XII grossly intact Psych/Mental Status: Appropriate, - - tearful, Alert and oriented to time, place, person, mood and affect Laboratory Results 05/30/19 03:54: Triglycerides 93, Cholesterol 216 H, LDL Cholesterol 131 H, VLDL Cholesterol 19, HDL Cholesterol 66 05/30/19 03:54: Magnesium 2.3 05/30/19 09:50: Troponin I < 0.015 Current Medications Acetaminophen (Tylenol) 650 mg PO Q6H PRN PRN PRN Reason: Pain Score 1-10/Temp > 100.7 F Last Admin: 05/30/19 02:49 Dose: 650 mg Documented by: Aspirin (Ecotrin) 81 mg PO DAILY@0800 [facility] Last Admin: 05/30/19 05:46 Dose: 81 mg Documented by: Glucagon () 1 mg IM .X1 PRN PRN Reason: Hypoglycemia Heparin Sodium (Beef Lung) (Heparin 500 Unit/5 Ml (100/Ml)) 500 unit IV UD PRN PRN Reason: HEPARIN FLUSH Dextrose (Dextrose 10%-Water) 250 mls @ 999 mls/hr IV .Q16M PRN; Protocol PRN Reason: HYPOGLYCEMIA Sodium Chloride () 1,000 mls @ 15 mls/hr IV .Q48H [facility] Last Admin: 05/29/19 16:44 Dose: Not Given Documented by: Sodium Chloride () 1,000 mls @ 125 mls/hr IV .Q8H [facility] Last Infusion: 05/30/19 11:30 Dose: 100 mls/hr Documented by: Sodium Chloride () 500 mls @ 999 mls/hr IV .Q31M ONE Stop: 05/30/19 13:55 Labetalol HCl (Trandate) 5 mg IV X1 PRN PRN Reason: SBP > 160 prior to sheath pull Stop: 06/01/19 08:10 Metoprolol Tartrate (Lopressor (Beta Alyson)) 12.5 mg PO BID [facility] Nitroglycerin (Nitrostat) 0.4 mg SUBLINGUAL Q5M PRN PRN Reason: CARDIAC/CHEST PAIN Last Admin: 05/29/19 05:37 Dose: 0.4 mg Documented by: Ondansetron HCl (Zofran) 4 mg IV Q6H PRN PRN PRN Reason: NAUSEA/VOMITING Last Admin: 05/30/19 09:46 Dose: 4 mg Documented by: STROKE Vital Signs/Narrative: Vital Signs Temp Pulse Resp BP Pulse Ox 05/30/19 12:29 98.2 F 59 L 16 99/47 L 97 05/30/19 10:48 68 05/30/19 10:43 68 16 113/56 L 97 05/30/19 10:05 73 18 116/50 L 99 05/30/19 09:44 72 16 109/60 99 Medical Necessity - Tobacco Use Smoking Status: Never smoker Tobacco Use: Non-smoker Assessment/Plan All Active Problems (Last Updated 05/30/19 @ 08:37 by Casie Beaslye) Chest pain (Acute) 1. Chest pain -cath today without significant CAD. echo with possible prior infarct, some hypokinesis on cath: Continue aspirin, elevated lipids, with elevated ASCVD score will add moderate statin. CTA chest with some atelectasis - add IS. -Check ESR/CRP -Cardiology following. 2. Nonsustained vtach - metoprolol. 3. hypotension - probably due to nausea/vomiting, new med. IV fluids and decrease metoprolol. 2. HLD - statin as above DC planning: monitor overnight. This patient was seen by Ed Bliss PA-C under the supervision of Doctor Yuri <Ubaldo Welch - Last Filed: 05/30/19 14:04> Vitals/I&O's: Vital Signs Temp Pulse Resp BP Pulse Ox 98.2 F 59 L 16 99/47 L 97 05/30/19 12:29 05/30/19 12:29 05/30/19 12:29 05/30/19 12:29 05/30/19 12:29 Oxygen Flow Rate (L/min) 2 Oxygen Delivery Method Room Air Weight: 77.3 kg Body Mass Index (BMI) 26.6 Intake and Output for Last 24 Hours 05/28/19 05/29/19 05/30/19 23:59 23:59 23:59 Intake Total 920 / 920 313.34 / 313.34 Balance 920 / 920 313.34 / 313.34 Laboratory Results 05/30/19 03:54: Triglycerides 93, Cholesterol 216 H, LDL Cholesterol 131 H, VLDL Cholesterol 19, HDL Cholesterol 66 05/30/19 03:54: Magnesium 2.3 05/30/19 03:54: ESR 6 05/30/19 09:50: Troponin I < 0.015 05/30/19 09:50: C-React Prot Ext Range < 2.90 Current Medications Acetaminophen (Tylenol) 650 mg PO Q6H PRN PRN PRN Reason: Pain Score 1-10/Temp > 100.7 F Last Admin: 05/30/19 02:49 Dose: 650 mg Documented by: Aspirin (Ecotrin) 81 mg PO DAILY@0800 [facility] Last Admin: 05/30/19 05:46 Dose: 81 mg Documented by: Glucagon () 1 mg IM .X1 PRN PRN Reason: Hypoglycemia Heparin Sodium (Beef Lung) (Heparin 500 Unit/5 Ml (100/Ml)) 500 unit IV UD PRN PRN Reason: HEPARIN FLUSH Dextrose (Dextrose 10%-Water) 250 mls @ 999 mls/hr IV .Q16M PRN; Protocol PRN Reason: HYPOGLYCEMIA Sodium Chloride () 1,000 mls @ 15 mls/hr IV .Q48H [facility] Last Admin: 05/29/19 16:44 Dose: Not Given Documented by: Sodium Chloride () 1,000 mls @ 125 mls/hr IV .Q8H [facility] Last Infusion: 05/30/19 13:52 Dose: 125 mls/hr Documented by: Labetalol HCl (Trandate) 5 mg IV X1 PRN PRN Reason: SBP > 160 prior to sheath pull Stop: 06/01/19 08:10 Metoprolol Tartrate (Lopressor (Beta Alyson)) 12.5 mg PO BID [facility] Nitroglycerin (Nitrostat) 0.4 mg SUBLINGUAL Q5M PRN PRN Reason: CARDIAC/CHEST PAIN Last Admin: 05/29/19 05:37 Dose: 0.4 mg Documented by: Ondansetron HCl (Zofran) 4 mg IV Q6H PRN PRN PRN Reason: NAUSEA/VOMITING Last Admin: 05/30/19 09:46 Dose: 4 mg Documented by: STROKE Vital Signs/Narrative: Vital Signs Temp Pulse Resp BP Pulse Ox 05/30/19 12:29 98.2 F 59 L 16 99/47 L 97 05/30/19 10:48 68 05/30/19 10:43 68 16 113/56 L 97 05/30/19 10:05 73 18 116/50 L 99 Assessment/Plan This patient was seen in conjunction with Ed Bliss PA-C . I have independently interviewed and examined the patient and reviewed pertinent historical, laboratory, and other data. Please refer to Ed Bliss PA-C note for details of this patient's presentation, findings, and recommendations. I have reviewed Ed Bliss PA-C note and concur with documented findings. 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 Cardiology subsequently consulted patient underwent left heart catheterization which failed to demonstrate any hemodynamically significant lesion. With patient having persistent pain CTA of the chest was obtained. CT was negative for PE however did show evidence of atelectasis. Use of incentive spirometry encouraged. Physical Examination: GENERAL: Cooperative HEENT: Atraumatic; EYES; Anicteric, NECK; supple, normal thyroid, RESPIRATORY: Diminished to auscultation CARDIOVASCULAR: Regular S1 S2, GI: soft, normoactive bowel sounds, : No Renal angle tenderness; NEURO: Awake; no lateralizing signs. SKIN: No Rash PSYCH; Flat affect Assessment: 1. Chest pain 2. Family history of premature CAD 3. Suspected musculoskeletal pain 4. Atelectasis Recommendations: 1. I have discussed the results of my overview and impressions with the patient 2. Options for management were reviewed Inpatient E&M: [id number] [facility] L2
[2019-05-30 13:42] LABS: Erythrocyte Sedimentation Rate 6 mm/hr (0-30)
[2019-05-30 13:48] LABS: CRP < 2.90 mg/L (0.0-3.0)
[2019-05-30] MEDS: 0.9% Normal Saline 1,000 ML 125 ML IV (19:55)
[2019-05-30] MEDS: Metoprolol Tartrate 25 MG Tablet 12.5 MG PO (21:08)
[2019-05-31] VITALS (8 sets, daily range): BP systolic 117–136; BP diastolic 64–68; PULSE 80–86; RESP 16–18; TEMP 36.4–37; O2SAT 96–98
[2019-05-31] MEDS: 0.9% Normal Saline 1,000 ML 125 ML IV (03:09)
--- NOTE | 2019-05-31 04:46 | EKG12_ITS ---
Test Reason : AM EKG Blood Pressure : / mmHG Vent. Rate : 080 BPM Atrial Rate : 080 BPM P-R Int : 172 ms QRS Dur : 106 ms QT Int : 418 ms P-R-T Axes : 075 055 067 degrees QTc Int : 482 ms Sinus rhythm with frequent Premature ventricular complexes in a pattern of bigeminy Otherwise normal ECG When compared with ECG of 30-MAY-2019 08:10, MANUAL COMPARISON REQUIRED, DATA IS UNCONFIRMED Confirmed by CHARY VERDUZCO ([id number]), video news editor MEJIA MAK ([id number]) on 06/01/2019 4:27:34 PM Referred By: JARROD Confirmed By:CHARY VERDUZCO
[2019-05-31] MEDS: Ketorolac 15 MG/ML Vial IV (05:44)
--- NOTE | 2019-05-31 05:55 | EKG12_ITS ---
Test Reason : CHEST PAIN Blood Pressure : / mmHG Vent. Rate : 078 BPM Atrial Rate : 072 BPM P-R Int : 156 ms QRS Dur : 104 ms QT Int : 424 ms P-R-T Axes : 074 040 069 degrees QTc Int : 483 ms Sinus rhythm with frequent Premature ventricular complexes in a bigeminal pattern Otherwise normal ECG When compared with ECG of 30-MAY-2019 05:53, MANUAL COMPARISON REQUIRED, DATA IS UNCONFIRMED Confirmed by CHARY VERDUZCO ([id number]), assignment editor RAIN ELIZABETH ([id number]) on 06/01/2019 7:27:14 AM Referred By: GABRIELLE KIM Confirmed By:CHARY VERDUZCO
[2019-05-31 06:50] LABS: Anion Gap 2 (5-15); BUN 17 mg/dL (7-18); BUN/Creat Ratio 25.6 RATIO (10-20); Calcium,Total 8.2 mg/dL (8.5-10.1); Chloride 115 mmol/L (98-107); Creatinine, Serum 0.66 mg/dL (0.55-1.02); EST Glomerular Filtration Rate 95 mL/min (>60); Est Glom Filt Rate - Afr Amer 115 mL/min (>60); Estimated Creatinine Clearance 53.81 ml/min; Glucose 89 mg/dL (74-106); Potassium 4.3 mmol/L (3.5-5.1); Sodium Level 142 mmol/L (136-145)
[2019-05-31] MEDS: Metoprolol Tartrate 25 MG Tablet 12.5 MG PO (08:50)
[2019-05-31] MEDS: Aspirin E.C. 81 MG Tablet PO (08:50)
--- NOTE | 2019-05-31 12:22 | PCM.DC.SUM ---
<Ed Bliss - Last Filed: 05/31/19 12:22> Discharge Date and Diagnosis Date of Admission: 05/28/19 Date of Discharge: 05/31/19 - Primary Discharge Diagnosis Active and Suspected Problems (Last Updated 05/30/19 @ 08:37 by Casie Beasley) Chest pain (Acute) - musculoskeletal Hypotension 2/2 medication side effect nonsustained Vtach Hyperlipidemia - Secondary Discharge Diagnosis Chronic Problems (Last Reviewed 04/12/19 @ 12:56 by Najma Phillips) Atherosclerosis of coronary artery of makah heart without angina pectoris (Chronic) Mild CAD noted in the first diagonal vessel. Medical therapy recommended. 05/30/2019 History of left heart catheterization (Chronic 05/30/19) Mild CAD noted in the first diagonal vessel. Medical therapy recommended. 05/30/2019 Hospital Course and Treatment Imaging Results: DIAGNOSTICS: RAD/Chest 1 View (Portable) IMPRESSION: Normal x-ray examination of the chest. Stress Echo: Conclusion: Exercise stress echocardiogram with no evidence of ischemia noted at a high workload. Previous basal inferior and basal inferoseptal infarct cannot be excluded. Low normal ejection fraction of 50%. Left Heart Cath: CONCLUSIONS Mild CAD noted in the first diagonal vessel RECOMMENDATIONS Medical therapy 2D Echo: Interpretation Summary Normal LV size. The estimated ejection fraction is 55 %. No obvious wall motion abnormalities noted. This is in contradistinction to the previous stress echo images. CT/CTA Chest W/WO Contrast IMPRESSION: There is no evidence of palm embolism. Mild degree of increased markings at the lung bases suggestive of dependent bibasilar atelectasis. Consults: Cardiology - Anel Operations: None Procedures: 2-D Echocardiogram, Cardiac catheterization Summary of Care Provided: Hospital course: The patient is a 68 year old F with no significant past medical history who presented to the ER with c/o chest pain. This was a left sided aching pain radiating into the left axilla. It woke her up from sleep wednesday morning, and would last about 20-30 mins and come and go, with some associated nausea. She had a + family hx of CAD and blood clots. She had a hx of recent air and cruise travel. In the ER, EKG was negative for ischemia, negative troponin. D dimer was negative. She was admitted and placed on PCU on tele. Trop was neg. x3. Repeat EKGs showed PVCs. She underwent a stress echo and had frequent PVCs, however it was negative for ischemia. She continued to have chest pain. Cardiology was consulted. She was taken for a heart cath which showed mild disease, however she did have a nonsustained vtach episode. She was placed on metoprolol. Following the cath she had more of the same pain, hypotension, nausea, and vomiting. She was given fluids and the metoprolol was decreased. She remained stable overnight. CRP and ESR were obtained and were normal. FLP was obtained and she had uncontrolled lipids - based on her ASCVD risk score moderate intensity statin and aspirin were advised. A follow up echo was obtained with no new acute findings. CTA chest was obtained with ongoing left sided chest and axillary sharp pain - no PE, some atelectasis. An incentive spirometer was provided. She was advised to use tylenol and NSAIDs for pain. She was discharged home in stable condition. She will need to follow up with her PCP in 1-2 weeks and with Cardiology as directed. This patient was seen by Ed Bliss PA-C under the supervvision of Dr. Welch. [] - Physical Exam Vitals/I&O's: Vital Signs Temp Pulse Resp BP Pulse Ox 98.6 F 83 16 132/64 H 97 05/31/19 08:37 05/31/19 08:50 05/31/19 08:37 05/31/19 08:37 05/31/19 08:37 Oxygen Flow Rate (L/min) 2 Oxygen Delivery Method Room Air Weight: 170 lb 6.677 oz Body Mass Index (BMI) 26.6 Intake and Output for Last 24 Hours 05/29/19 05/30/19 05/31/19 23:59 23:59 23:59 Intake Total 920 / 920 3253.33 / 3253.33 1566.66 / 1566.66 Balance 920 / 920 3253.33 / 3253.33 1566.66 / 1566.66 General: Alert, Oriented x3, Cooperative HEENT: Atraumatic, PERRLA, EOMI, Normocephalic Neck: Supple, No JVD, Negative Carotid Bruits Lungs: Clear to auscultation, Normal air movement Cardiovascular: Regular rate, No murmurs Abdomen: Bowel Sounds Present, Soft, Non Tender Extremities: No edema, Capillary Refill Less than 3 Seconds Skin: No rashes, No breakdown Musculoskeletal: No Tenderness to Palpation of Joints or Extremities Neurological: Cranial nerves II-XII grossly intact Psych/Mental Status: Normal Affect, Appropriate, Alert and oriented to time, place, person, mood and affect Laboratory Results 05/30/19 03:54: ESR 6 05/30/19 09:50: C-React Prot Ext Range < 2.90 05/31/19 06:00: Sodium 142, Potassium 4.3, Chloride 115 H, Carbon Dioxide 25.0, Anion Gap 2 L, BUN 17, Creatinine 0.66, Estim Creat Clear Calc 53.81, Est GFR (MDRD) Af Amer 115, Est GFR (MDRD) Non-Af 95, BUN/Creatinine Ratio 25.6 H, Glucose 89, Calcium 8.2 L Current Medications Acetaminophen (Tylenol) 650 mg PO Q6H PRN PRN PRN Reason: Pain Score 1-10/Temp > 100.7 F Last Admin: 05/30/19 02:49 Dose: 650 mg Documented by: Aspirin (Ecotrin) 81 mg PO DAILY@0800 [facility] Last Admin: 05/31/19 08:50 Dose: 81 mg Documented by: Glucagon () 1 mg IM .X1 PRN PRN Reason: Hypoglycemia Heparin Sodium (Beef Lung) (Heparin 500 Unit/5 Ml (100/Ml)) 500 unit IV UD PRN PRN Reason: HEPARIN FLUSH Dextrose (Dextrose 10%-Water) 250 mls @ 999 mls/hr IV .Q16M PRN; Protocol PRN Reason: HYPOGLYCEMIA Sodium Chloride () 1,000 mls @ 15 mls/hr IV .Q48H [facility] Last Admin: 05/29/19 16:44 Dose: Not Given Documented by: Ketorolac Tromethamine (Toradol (Bkc)) 15 mg IV Q8 [facility] Stop: 05/31/19 22:01 Last Admin: 05/31/19 05:44 Dose: 15 mg Documented by: Labetalol HCl (Trandate) 5 mg IV X1 PRN PRN Reason: SBP > 160 prior to sheath pull Stop: 06/01/19 08:10 Metoprolol Tartrate (Lopressor (Beta Alyson)) 12.5 mg PO BID [facility] Last Admin: 05/31/19 08:50 Dose: 12.5 mg Documented by: Nitroglycerin (Nitrostat) 0.4 mg SUBLINGUAL Q5M PRN PRN Reason: CARDIAC/CHEST PAIN Last Admin: 05/29/19 05:37 Dose: 0.4 mg Documented by: Ondansetron HCl (Zofran) 4 mg IV Q6H PRN PRN PRN Reason: NAUSEA/VOMITING Last Admin: 05/30/19 09:46 Dose: 4 mg Documented by: Discharge Diet: Low fat/ Low Cholesterol, 2000 mg Sodium Diet Discharge Activity: Return to Normal Activity Home Medications: Medications to take at Discharge Multivitamins,Therapeutic [Multivitamin] 1 tab PO DAILY 07/20/13 Caltrate 1 tab PO DAILY 02/24/18 L. Acidophilus/Pectin, [place] [Acidophilus-Pectin [place]] 1 ea PO DAILY 02/24/18 Cholecalciferol (Vitamin D3) [Vitamin D3] 2,000 unit PO DAILY 05/28/19 Aspirin E.C. [Ecotrin] 81 mg PO DAILY@0800 tab 05/30/19 Atorvastatin Calcium [Lipitor] 40 mg PO QHS #30 tab 05/30/19 Metoprolol Tartrate [Lopressor (beta alyson)] 12.5 mg PO BID #30 tab 05/31/19 Following Prescrptions Were Given to Patient: Atorvastatin Calcium [Lipitor] 40 mg PO QHS #30 tab Transmission Status: Received by [facility]/pharmacy #[id number] Metoprolol Tartrate [Lopressor (beta alyson)] 12.5 mg PO BID #30 tab Transmission Status: Sent to [facility] Primary Care Physician: Shimon Potts MD [Primary Care Provider] - Please follow up with your Primary Care Physician in: 1-2 weeks Please Follow Up With: Luis Tam MD When: as directed Please Follow Up With: Shimon Potts MD Disposition: Home Minutes spent on discharge:: 35 Patient Condition:: Stable Medical Necessity - Tobacco Use Smoking Status: Never smoker Tobacco Use: Non-smoker Meaningful Use Info Meaningful Use Diagnoses (Choose all that apply): None applicable <Ubaldo Welch - Last Filed: 05/31/19 15:43> Discharge Date and Diagnosis - Secondary Discharge Diagnosis Chronic Problems (Last Reviewed 04/12/19 @ 12:56 by Najma Phillips) Atherosclerosis of coronary artery of mak[place] heart without angina pectoris (Chronic) Mild CAD noted in the first diagonal vessel. Medical therapy recommended. 05/30/2019 History of left heart catheterization (Chronic 05/30/19) Mild CAD noted in the first diagonal vessel. Medical therapy recommended. 05/30/2019 Hospital Course and Treatment Summary of Care Provided: This patient was seen in conjunction with Ed Bliss PA-C . I have independently interviewed and examined the patient and reviewed pertinent historical, laboratory, and other data. Please refer to Ed Bliss PA-C note for details of this patient's presentation, findings, and recommendations. I have reviewed Ed Bliss PA-C note and concur with documented findings. In brief, patient is a 62-year-old lady admitted with chest pain Assessment: 1. Chest pain 2. Family history of premature CAD 3. Suspected musculoskeletal pain 4. Atelectasis Hospital course: As documented above - Physical Exam Vitals/I&O's: Vital Signs Temp Pulse Resp BP Pulse Ox 98.6 F 83 16 132/64 H 97 05/31/19 08:37 05/31/19 08:50 05/31/19 08:37 05/31/19 08:37 05/31/19 08:37 Oxygen Flow Rate (L/min) 2 Oxygen Delivery Method Room Air Weight: 77.3 kg Body Mass Index (BMI) 26.6 Intake and Output for Last 24 Hours 05/29/19 05/30/19 05/31/19 23:59 23:59 23:59 Intake Total 920 / 920 3253.33 / 3253.33 1806.66 / 1806.66 Balance 920 / 920 3253.33 / 3253.33 1806.66 / 1806.66 Laboratory Results 05/31/19 06:00: Sodium 142, Potassium 4.3, Chloride 115 H, Carbon Dioxide 25.0, Anion Gap 2 L, BUN 17, Creatinine 0.66, Estim Creat Clear Calc 53.81, Est GFR (MDRD) Af Amer 115, Est GFR (MDRD) Non-Af 95, BUN/Creatinine Ratio 25.6 H, Glucose 89, Calcium 8.2 L Inpatient E&M: [id number] Disch Hosp
== END 2019-05-31 12:51 | disposition home or self-care (01) | DRG 287 ==
LOC: ED 08:53 → PCU 12:04
PROVIDERS: Hospitalist; Internal Medicine Cardiovascular Disease; Physician Assistant; Emergency Provider Emergency Medicine; PCP Family Medicine; Visit Provider Internal Medicine
DX: R07.89 Other chest pain (principal); I47.2 Ventricular tachycardia; I95.2 Hypotension due to drugs; T44.7X5A Adverse effect of beta-adrenoreceptor antagonists, initial encounter; Y92.239 Unspecified place in hospital as the place of occurrence of the external cause; E78.5 Hyperlipidemia, unspecified; I25.10 Atherosclerotic heart disease of native coronary artery without angina pectoris; Z82.49 Family history of ischemic heart disease and other diseases of the circulatory system
CPT/HCPCS: 36415; 71045; 71275; 80048; 80061; 83735; 84484; 85025; 85379; 85652; 86140; 93005; 93017; 93308; 93350; 93458; 99152; 99251; 99285; C1760; J7030; J7040; Q9967; A4216; C1769; G0463; J2405

== ENCOUNTER → 2019-06-06 13:41 | Outpatient (CLI) | payer OTHER, MEDICARE, SELFPAY ==
[2019-05-28 09:46] VITALS: BMI 26.6
[2019-06-06 15:53] LABS: Vitamin D,25 Hydroxy 29.6 ng/mL
[2019-06-06 16:03] LABS: Magnesium 2.3 mg/dL (1.6-2.6); T4 Free Direct 1.02 ng/dL (0.76-1.46); Thyroid Stim Hormone (TSH) 1.51 uIU/mL (0.358-3.74)
[2019-06-07 08:14] LABS: PTHIN 48.7 pg/mL (18.4-80.1)
== END ==
PROVIDERS: PCP Family Medicine; Referring Provider Family Medicine; Visit Provider Family Medicine
DX: E83.51 Hypocalcemia (principal)
CPT/HCPCS: 36415; 82306; 83735; 83970; 84439; 84443

== ENCOUNTER → 2020-01-10 10:37 | Outpatient (CLI) | payer OTHER, SELFPAY ==
[2019-06-23 11:16] VITALS: BMI 29.1
--- NOTE | 2020-01-10 10:40 | RAD_ITS ---
STUDY: X-RAY CHEST REASON FOR EXAM: Female, 69 years old. STERNAL CHEST PRESSURE TECHNIQUE: PA and lateral views of the chest. COMPARISON: Comparison is made with prior study dated 05/28/2019. FINDINGS: EKG electrodes are seen. Hyperinflation. Scattered calcified granulomas. There is no demonstrated pleural abnormality. Normal size heart. Normal mediastinum and kaitlin. Normal visualized pulmonary arteries. Normal visualized aortic arch and descending thoracic aorta. There are degenerative changes of the visualized thoracic spine. Normal visualized ribs, clavicles, and shoulders. Surgical clips are seen in the right upper quadrant. RAD/Chest PA and Lateral IMPRESSION: Hyperinflation. Electronically Signed: Andrew Yee, at 14:11 EDT , Service support ,
[2020-01-10 12:51] LABS: Absolute Lymphocyte Count 1.71 X10^3/uL (0.83-4.51); Absolute Neutrophil Count 3.9 X10^3/uL (2.0-7.7); Basophil# 0.05 X10^3/uL; Basophil% 0.8 % (0-1); Eosinophil# 0.07 X10^3/uL; Eosinophils% 1.1 % (0-5); Hematocrit 41.1 % (37-47); Hemoglobin 13.5 g/dL (12.0-15.0); Lymphocyte # 1.71 X10^3/ul (4.0); Mean Corp Hgb Conc 32.8 g/dL (32-36); Mean Corpuscular Hgb 32.8 pg (27.0-32.0); Mean Corpuscular Volume 99.8 fL (81-99); Mean Platelet Vol. 11.3 fl (6.2-12.0); Monocyte# 0.59 X10^3/uL; Monocyte% 9.3 % (0-10); NRBC Flagged by Analyzer 0 % (0-5); Neutrophil # 3.88 X10^3/uL (2.7-7.7); Neutrophil % 61.3 % (47-70); Platelet Count 274 K/mm3 (150-450); RBC Distribution Width CV 11.9 % (11.6-14.6); RBC Distribution Width SD 43.5 fl (35.1-43.9); Red Blood Count 4.12 M/mm3 (4.2-5.4); White Blood Count 6.3 K/mm3 (4.4-11.0)
[2020-01-10 12:53] LABS: ALB/GLOB Ratio 1.2 RATIO (0.9-2.4); AST(SGOT) 22 U/L (15-37); Alanine Aminotransfer ALT/SGPT 36 U/L (13-56); Alkaline Phosphatase 54 U/L (45-117); Anion Gap 3 (5-15); BUN 21 mg/dL (7-18); BUN/Creat Ratio 22.7 RATIO (10-20); CRP < 2.90 mg/L (0.0-3.0); Chloride 106 mmol/L (98-107); Creatinine, Serum 0.92 mg/dL (0.55-1.02); EST Glomerular Filtration Rate 64 mL/min (>60); Est Glom Filt Rate - Afr Amer 78 mL/min (>60); Globulin 3.3 g/dL (2.2-4.2); Glucose 89 mg/dL (74-106); Magnesium 2.3 mg/dL (1.6-2.6); Potassium 4.4 mmol/L (3.5-5.1); Protein, Total 7.3 g/dL (6.4-8.2); Sodium Level 138 mmol/L (136-145); Thyroid Stim Hormone (TSH) 1.16 uIU/mL (0.358-3.74)
== END ==
PROVIDERS: PCP Family Medicine; Referring Provider Family Medicine; Visit Provider Family Medicine
DX: R07.89 Other chest pain (principal); R53.83 Other fatigue
CPT/HCPCS: 36415; 71046; 80053; 83735; 84443; 85025; 86140

== ENCOUNTER → 2020-01-16 11:54 | Outpatient (CLI) | payer OTHER, SELFPAY ==
[2019-06-23 11:16] VITALS: BMI 29.1
== END ==
PROVIDERS: PCP Family Medicine; Referring Provider Family Medicine; Visit Provider Family Medicine
DX: R00.1 Bradycardia, unspecified (principal)
CPT/HCPCS: 93225; 93226

== ENCOUNTER → 2020-02-07 08:09 | Outpatient (CLI) | payer OTHER, SELFPAY ==
[2020-01-25 13:55] VITALS: BMI 28.4
--- NOTE | 2020-02-09 12:55 | PFT ---
INTRODUCTION: The patient is a 69-year-old female that presents for pulmonary function studies secondary to a diagnosis of lung inflammation. Respiratory therapy reports good patient effort. Bronchodilators were used during testing. INTERPRETATION: Forced expiration spirometry demonstrates no evidence of a large airways obstructive ventilatory defect. There was no significant response to aerosolized bronchodilators. Spirograms are of good quality and plateau normally. Body plethysmography was performed and reveals lung volumes to be within normal limits. Diffusing capacity by single breath CO is within normal limits at 86% of predicted. IMPRESSION: Grossly normal pulmonary function studies.
== END ==
PROVIDERS: PCP Family Medicine; Referring Provider Family Medicine; Visit Provider Family Medicine
DX: R06.4 Hyperventilation (principal)
CPT/HCPCS: 94060; 94726; 94729

== ENCOUNTER → 2020-03-08 | Outpatient (CLI) | payer OTHER, SELFPAY ==
[2020-02-28 13:48] VITALS: BMI 28.3
== END | disposition home or self-care (01) ==
LOC: LABSPEC 13:41
PROVIDERS: PCP Family Medicine; Referring Provider Family Medicine; Visit Provider Family Medicine
DX: Z20.828 Contact with and (suspected) exposure to other viral communicable diseases (principal)
CPT/HCPCS: 87635; U0003

== ENCOUNTER → 2020-08-22 09:31 | Outpatient (CLI) | payer OTHER, SELFPAY ==
[2020-02-28 13:48] VITALS: BMI 28.3
== END ==
PROVIDERS: PCP Family Medicine; Referring Provider Internal Medicine Cardiovascular Disease; Visit Provider Internal Medicine Cardiovascular Disease
DX: I49.49 Other premature depolarization (principal)
CPT/HCPCS: 93225; 93226

== ENCOUNTER → 2020-10-22 | Outpatient (CLI) | payer OTHER, SELFPAY ==
[2020-02-28 13:48] VITALS: BMI 28.3
== END | disposition home or self-care (01) ==
LOC: LABSPEC 15:21
PROVIDERS: PCP Family Medicine; Referring Provider Family Medicine; Visit Provider Family Medicine
DX: J01.90 Acute sinusitis, unspecified (principal)
CPT/HCPCS: 87633; 87635; U0005; U0003

== ENCOUNTER → 2020-11-05 | Outpatient (CLI) | payer OTHER, SELFPAY ==
[2020-11-05 11:38] VITALS: BMI 28.3
== END | disposition home or self-care (01) ==
LOC: LABSPEC 17:43
PROVIDERS: PCP Family Medicine; Referring Provider Nurse Practitioner Women's Health; Visit Provider Nurse Practitioner Women's Health
DX: N76.0 Acute vaginitis (principal)
CPT/HCPCS: 87070; 87205

== ENCOUNTER → 2021-03-10 | Outpatient (CLI) | payer OTHER, SELFPAY | END | disposition home or self-care (01) | PROVIDERS: PCP Family Medicine; Referring Provider Nurse Practitioner Family; Visit Provider Nurse Practitioner Family | DX: Z20.822 Contact with and (suspected) exposure to COVID-19 (principal) | CPT/HCPCS: 87635; U0005; U0003 ==

== ENCOUNTER 2021-05-22 09:26 | Outpatient (CLI) | payer OTHER, SELFPAY ==
--- NOTE | 2021-05-22 09:28 | RAD_ITS ---
EXAM: XR CHEST, 2 VIEWS : 1950 CLINICAL INDICATION: Amiodarone TECHNIQUE: Frontal and lateral views of the chest. This report was created using [employer] report generation technology. COMPARISON: 01/10/2020 FINDINGS: LUNGS AND PLEURAL SPACES: Unremarkable. No consolidation or edema. No pneumothorax. No effusion. HEART: Unremarkable. Cardiac silhouette not enlarged. MEDIASTINUM: Central airways and mediastinal contour are unremarkable. BONES/JOINTS: Unremarkable. SOFT TISSUES: Unremarkable. RAD/Chest PA and Lateral IMPRESSION: No radiographic evidence of acute cardiopulmonary disease. at 0236 Reported and signed by: Jordon Jaimes MD Electronically Signed: Jordon Jaimes MD at 2:35 EST ,
== END 2021-05-22 23:59 | disposition home or self-care (01) ==
PROVIDERS: PCP Family Medicine; Referring Provider Nurse Practitioner Gerontology; Visit Provider Nurse Practitioner Gerontology
DX: Z79.899 Other long term (current) drug therapy (principal)
CPT/HCPCS: 71046

== ENCOUNTER 2021-05-29 07:48 | Outpatient (CLI) | payer OTHER, SELFPAY ==
[2021-05-29 08:48] LABS: ALB/GLOB Ratio 1.2 RATIO (0.9-2.4); AST(SGOT) 22 U/L (15-37); Alanine Aminotransfer ALT/SGPT 31 U/L (13-56); Alkaline Phosphatase 54 U/L (45-117); Anion Gap 2 (5-15); BUN 16 mg/dL (7-18); Calcium,Total 9.3 mg/dL (8.5-10.1); Chloride 107 mmol/L (98-107); Cholesterol 175 mg/dL (200); Creatinine, Serum 0.76 mg/dL (0.55-1.02); EST Glomerular Filtration Rate 80 mL/min (>60); Est Glom Filt Rate - Afr Amer 97 mL/min (>60); Globulin 3.3 g/dL (2.2-4.2); Glucose 92 mg/dL (74-106); High Density Lipoprotein 81 mg/dL; Magnesium 2.2 mg/dL (1.6-2.6); Potassium 4.4 mmol/L (3.5-5.1); Protein, Total 7.3 g/dL (6.4-8.2); Sodium Level 139 mmol/L (136-145); Thyroid Stim Hormone (TSH) 1.84 uIU/mL (0.358-3.74); Triglycerides 65 mg/dL; Very Low Density Lipoprotein 13 mg/dL (5-40)
[2021-05-29 08:53] LABS: AST(SGOT) 21 U/L (15-37); Alanine Aminotransfer ALT/SGPT 30 U/L (13-56); Albumin, Serum 3.9 g/dL (3.2-5.0); Alkaline Phosphatase 54 U/L (45-117); Bilirubin, Direct 0.16 mg/dL (0.00-0.30); Globulin 3.4 g/dL (2.2-4.2); Protein, Total 7.3 g/dL (6.4-8.2); T4 Free Direct 1.25 ng/dL (0.76-1.46)
== END 2021-05-29 23:59 | disposition home or self-care (01) ==
LOC: LAB 07:51
PROVIDERS: PCP Family Medicine; Referring Provider Nurse Practitioner Gerontology; Visit Provider Nurse Practitioner Gerontology
DX: Z00.00 Encounter for general adult medical examination without abnormal findings (principal); I45.10 Unspecified right bundle-branch block; Z79.899 Other long term (current) drug therapy
CPT/HCPCS: 36415; 80053; 80061; 80076; 83735; 84439; 84443

== ENCOUNTER 2021-06-05 09:24 | Outpatient (CLI) | payer OTHER, SELFPAY ==
--- NOTE | 2021-06-05 13:27 | PFTCOMP_ITS ---
COMPLETE PULMONARY FUNCTION TEST INTERPRETATION Brief HPI: Patient is a 70 year old female, currently under the care of Fatuma Hector, who presents to [facility] for complete pulmonary function tests secondary to diagnosis of amiodarone therapy. Respiratory therapist reports good effort and reproducible results. Interpretation: Forced expiration spirometry shows no large airways obstructive ventilatory defect with an FEV1 of 114% predicted. There is no significant bronchodilator response by strict ATS criteria. Spirograms are of good quality and plateau normally. The respiratory flow volume loop shows a normal pattern. Lung volumes by body plethysmography show an elevated total lung capacity at 6.36 L, 117% predicted. All other lung volumes are increased symmetrically. Diffusion capacity by carbon monoxide is normal at 97% predicted. The airway resistance is normal. Compared to previous pulmonary function tests from 02/07/2020, there has been no significant change. Impression: These pulmonary function tests are within normal limits.
== END 2021-06-05 23:59 | disposition home or self-care (01) ==
LOC: PSN 09:27
PROVIDERS: PCP Family Medicine; Referring Provider Nurse Practitioner Gerontology; Visit Provider Nurse Practitioner Gerontology
DX: Z79.899 Other long term (current) drug therapy (principal)
CPT/HCPCS: 94060; 94726; 94729

== ENCOUNTER 2021-06-18 07:18 | Outpatient (CLI) | payer OTHER, SELFPAY ==
--- NOTE | 2021-06-18 14:50 | STRESSREP ---
Stress Test Report Exercise myocardial perfusion stress test. 70-year-old lady with a history of chest pain pain Stress protocol: Resting EKG demonstrates normal sinus rhythm with a rate of 60 bpm normal intervals are noted resting blood pressure is 108/62 mmHg. The patient exercised according to regular Jamie protocol for total duration of 7 minutes and 37 seconds. Patient completed 1 minute and 37 seconds into stage III of the Jamie protocol. The maximum heart rate attained was 129 bpm which was 84% of max impact at heart rate maximum workload was 10.1 metabolic equivalents. At rest there were no ST or T wave changes noted suggest ischemia and at peak exercise upsloping ST changes were noted with did not meet the criteria for ischemia. No clinical angina was noted. The patient was noted to have occasional premature ventricular complexes during recovery noted. The peak blood pressure was 140/60 mmHg with a rate-pressure product of 15,960. Myocardial perfusion protocol. 11.3 mCi of technetium 99m sestamibi was injected at rest. The patient exercised according to regular Jamie protocol for 7 minutes and 37 seconds and at peak exercise 33.4 mCi of technetium 99m sestamibi was injected stress images were obtained stress and rest images were reconstructed and compared in the short axis vertical long and horizontal long axis. Gated images were also obtained. Perfusion SPECT analysis: Review of the stress images demonstrate normal uptake of tracer noted in all areas of the myocardium. The resting images similarly demonstrate normal uptake of tracer noted in all areas of the myocardium. No areas of reversibility are noted to suggest ischemia and no previous infarct is noted. Gated SPECT analysis: The gated ejection fraction is 71%. Conclusion: Normal exercise myocardial perfusion stress test with no evidence of ischemia at a high workload. Preserved ejection fraction.
== END 2021-06-18 23:59 | disposition home or self-care (01) ==
PROVIDERS: PCP Family Medicine; Visit Provider Nurse Practitioner Gerontology
DX: I45.10 Unspecified right bundle-branch block (principal); I25.10 Atherosclerotic heart disease of native coronary artery without angina pectoris
CPT/HCPCS: 78452; 93017; A9500; A4216

== ENCOUNTER 2021-08-12 13:00 | Outpatient (RCR) | payer OTHER, SELFPAY ==
--- NOTE | 2021-06-05 11:44 | HP.PTEVAL_ITS ---
Patient's Visit Information DEVANG YOUSSEF is a 70 year old F referred to Physical Therapy by Dr. Shimon Potts MD with a diagnosis of postural abnormality with pain in upper back. Date of Evaluation: 06/05/21 Physical Therapist: Stone Argueta DPT - Visit Plan Frequency: 1-2x /Week Duration: 6 Weeks Plan: Start with manual and joint mobs (PA to thoracic spine), pec stretching, thoracic extension and cervical retraction. Progress to mid trap/rhomboid strengthening and deep neck flexor strengthening. HEP 06/05/21: door way sec stretch 3x30. thoracic mobility with foam along spine x2'. seated thoracic extension 2x10x5. mid row GTB 3x10. supine H abd GTB 3x10 - Subjective Pt. is here today for her initial evaluation with diagnosis of postural abnormality with pain in upper back. Pt. reports having a constant pain in her lower cervical spine and upper thoracic for a few years. 1/10 pain at rest, and 2-3/10 pain with lying. Pt. sleeps between her sides and back. Pt. denies N/T and no weakness noted in UEs. Pt. reports an on going symptoms. [place] is very [place] and has lot of outside chores to do. She has increased pain with sleeping, mornings are not too bad. She reports having poor flexed posture that has been worsening for the past few years. No imaging has been completed. Pt. has not trialed any exercises at this point in time. She is hopeful - Pain upper thoracic Pain Intensity (Out of 10): 1 Pain Intensity Range: 0, 4 - Objective POSTURE: has increased thoracic kyphosis with resultant increased cervical lordosis. She has increased curvature at CT junction due to this. PALPATION: Pt. is tender at bilateral UT, B levator scap, and thoracic erector spine, mid trap. NEURO: normal sensation and normal DTR of BUEs. ROM: CERVICAL SPINE: flexion min loss increase NW, extension min loss increase NW, SB min loss NE, rotation mod loss increase NW bilat. Thoracic spine: flexion nil loss NBE, ext mod/ma loss decrease NB, rotation mod loss bilat. B shoulder full ROM NE. MMT: Pt. has 5/5 through out, except mid trap 4/5, rhomboids 4/5 and lat 4+/5. Cervical: 5/5 cervical iso. - Special Tests Cervical Sitting: Protrusion - Mechanical Response: No effect Cervical Sitting: Protrusion - Symptoms During Testing: Increases Cervical Sitting: Protrusion - Symptoms After Testing: No worse Cervical Sitting: Retraction - Mechanical Response: No effect Cervical Sitting: Retraction - Symptoms During Testing: Decreases Cervical Sitting: Retraction - Symptoms After Testing: No better Thoracic Sitting: Flexion - Mechanical Response: No effect Thoracic Sitting: Flexion - Symptoms During Testing: Increases Thoracic Sitting: Flexion - Symptoms After Testing: No worse Thoracic Sitting: Extension - Mechanical Response: No effect Thoracic Sitting: Extension - Symptoms During Testing: Decreases Thoracic Sitting: Extension - Symptoms After Testing: No better Thoracic Sitting: Right rotation - Mechanical Response: No effect Thoracic Sitting: Right Rotation - Symptoms During Testing: No effect Thoracic Sitting: Right Rotation - Symptoms After Testing: No effect Thoracic Sitting: Left rotation - Mechanical Response: No effect Thoracic Sitting: Left Rotation - Symptoms During Testing: No effect Thoracic Sitting: Left Rotation - Symptoms After Testing: No effect - Balance/Special Test Scores Oswestry Low Back Score: 8 - Goals Goal 1:: LTG: Pt. to be I with HEP for postural strengthening and stretching. Goal Time Frame: 4-6 Weeks Goal 2:: STG: Pt. to sleep throughout the night with 0-2/10 pain in C/T junction allowing for increased quality of life. Goal Time Frame: 2 Weeks Goal 3:: LTG: Pt. to have increased thoracic extension by 25% and cervical retraction by 25% allowing for improved posture. Goal Time Frame: 4-6 Weeks Goal 4:: LTG: Pt. to have increased posture awareness noted by maintain improved posture throughout therapy session. Goal Time Frame: 4-6 Weeks Goal 5:: LTG: pt. to complete all ADLs without increase in C/T junction symp toms. Goal Time Frame: 4-6 Weeks - Rehabilitation Potential Physical Therapy Diagnosis: Pt. has signs and symptoms consistent with postural abnormality with pain in upper back. Pt. has marked increased thoracic kyphosis with subsequent increase in cervical lordosis. It appears due to this increased poor posture her upper thoracic musculature is over working causing increased muscle soreness. Pt. would benefit from PT to increased thoracic posture and increase postural strengthening. Rehabilitation Potential: Excellent - Anticipated Interventions Patient/Client Instruction: Educate patient on: Condition, Plan of Care, Risk Factors, Benefits of Fitness Program For the Purpose of:: To improve decision making, To facilitate caregiver knowledge, To improve self management, To prevent re-injury, To improve ability to perform tasks related to life management, To improve tolerance to ADL's Therapeutic Exercise to Include: Body mechanics, Postural training, Flexibilty training, Passive ROM, Active ROM, Dynamic Lumbar Stabilization, Akira Exercises, Scapular Strength/Stabilization For the Purpose of:: To decrease pain, To increase ROM, To improve nutrient delivery to tissue, To increase oxygenation perfusion, To improve muscle performance and motor function, To improve ability to perform ADL's, To improve health of tissue, To decrease soft tissue restriction, To increase flexibili ty/ROM, To improve endurance Manual Therapy Techniques to Include: Mobilization, Soft tissue mobilization For the Purpose of:: To decrease pain, To decrease swelling/inflammation, To increase ROM, To improve nutrient delivery to tissue, To increase oxygenation perfusion, To improve muscle performance and motor function Thank you for the opportunity to evaluate your patient. For Medicare and Medicare HMO plans, please review the plan of care and approve it. It will need to be FAXED BACK to us at [phone] for Medicare purposes. For Medicare only, by signing this I certify the plan of care. Please let me know if there are questions or concerns regarding this plan of care. Physician Signature: Date:
--- NOTE | 2021-07-09 15:00 | HP.PTREVAL ---
Dr. Shimon Potts MD, It has been my pleasure to treat DEVANG YOUSSEF over the last 5 visits for postural abnormality with pain in upper back. Please see the progress note below for an update on the physical therapy plan of care! Subjective: Pt. reports overall doing well. Pt. reports no pain today. She did have some question on her HEP. No major issues noted. Objective/Function: Pt. tolerated all PT well today. I answered questions on her HEP. pt. is independent with them. She is overall doing well. She does continue to have an increased thoracic kyphosis, but her ROM has improved. She reports less pain with her ADLs and household work activities. She is to trial her exercise on her own for the next 2-3 weeks then follow back up with PT. Plan Plan: Pt. to trial exercises on own then follow back up with PT in 2-3 weeks. Pt. is improving with her strength and stability. Balance/Gait/Functional tests - Balance/Special Test Scores Oswestry Low Back Score: 6 Goals Goal 1:: LTG: Pt. to be I with HEP for postural strengthening and stretching. Goal Time Frame: 4-6 Weeks Goal Progress: Progressing Goal 2:: STG: Pt. to sleep throughout the night with 0-2/10 pain in C/T junction allowing for increased quality of life. Goal Time Frame: 2 Weeks Goal Progress: Progressing Goal 3:: LTG: Pt. to have increased thoracic extension by 25% and cervical retraction by 25% allowing for improved posture. Goal Time Frame: 4-6 Weeks Goal Progress: Progressing Goal 4:: LTG: Pt. to have increased posture awareness noted by maintain improved posture throughout therapy session. Goal Time Frame: 4-6 Weeks Goal Progress: Progressing Goal 5:: LTG: pt. to complete all ADLs without increase in C/T junction symptoms. Goal Time Frame: 4-6 Weeks Goal Progress: Progressing Anticipated Interventions Patient/Client Instruction: Educate patient on: Condition, Plan of Care, Risk Factors, Benefits of Fitness Program For the Purpose of:: To improve decision making, To facilitate caregiver knowledge, To improve self management, To prevent re-injury, To improve ability to perform tasks related to life management, To improve tolerance to ADL's Therapeutic Exercise to Include: Body mechanics, Postural training, Flexibilty training, Passive ROM, Active ROM, Dynamic Lumbar Stabilization, Akira Exercises, Scapular Strength/Stabilization For the Purpose of:: To decrease pain, To increase ROM, To improve nutrient delivery to tissue, To increase oxygenation perfusion, To improve muscle performance and motor function, To improve ability to perform ADL's, To improve health of tissue, To decrease soft tissue restriction, To increase flexibility/ROM, To improve endurance Manual Therapy Techniques to Include: Mobilization, Soft tissue mobilization For the Purpose of:: To decrease pain, To decrease swelling/inflammation, To increase ROM, To improve nutrient delivery to tissue, To increase oxygenation perfusion, To improve muscle performance and motor function Please do not hesitate to contact me at [phone] by phone or if you have questions or concerns regarding this new plan of care! Sincerely, HENRY TranT
== END 2021-08-12 19:00 | disposition home or self-care (01) ==
LOC: PT 13:00
PROVIDERS: PCP Family Medicine; Referring Provider Family Medicine; Visit Provider Family Medicine
DX: R29.3 Abnormal posture (principal); M54.2 Cervicalgia; M54.6 Pain in thoracic spine
CPT/HCPCS: 97110; 97161

== ENCOUNTER 2021-10-10 08:07 | Emergency (ER) | payer OTHER, MEDICARE, SELFPAY ==
[2021-10-10 08:08] VITALS: BP 102/62; PULSE 66; RESP 16; TEMP 36.3; O2SAT 97; BMI 26.2
--- NOTE | 2021-10-10 08:23 | CT_ITS ---
STUDY: CT ABDOMEN AND PELVIS WITHOUT CONTRAST REASON FOR EXAM: Female, 70 years old. RLQ abd pain, diarrhea. Prior cholecystectomy, tubal ligation, . RADIATION DOSAGE (If Supplied By Facility): CTDIvol = ( 7.26 ) mGy, DLP = ( 353.55 ) mGycm TECHNIQUE: Transaxial images were obtained from the dome of the diaphragm to the symphysis pubis without oral contrast, and without intravenous contrast. Sagittal and coronal images were reconstructed. Individualized dose optimization techniques were used for this CT. COMPARISON: Comparison is made with prior study dated 02/24/2018. FINDINGS: The visualized lung bases are unremarkable. The visualized portions of the heart are within normal limits. Normal liver. There are surgical clips in the gallbladder fossa consistent with a prior cholecystectomy. Normal spleen. Normal pancreas. Normal bilateral adrenal glands. Normal right kidney. Normal left kidney. Normal visualized stomach. Normal small intestine. There are multiple colonic diverticula consistent with diverticulosis. The appendix is visualized and appears normal. Normal abdominal aorta. Normal inferior vena cava. Normal retroperitoneum. Increased markings in the mesenteric fat at the level of the root of the mesentery. This is nonspecific. Small lymph nodes are seen in the mesenteric fat in the right lower quadrant suggestive of mesenteric adenitis. Normal urinary bladder. Enlarged partially calcified fibroid uterus. Normal abdominal wall. There are degenerative changes of the visualized lumbar spine. Grade 1 anterolisthesis of L4 on L5 CT/Abdomen/Pelvis without Cont IMPRESSION: Status post cholecystectomy. Increased markings are seen in the root of mesentery. This is a nonspecific finding. Small lymph nodes are seen in the mesenteric fat in the right lower quadrant is suggestive of mesenteric adenitis. Sigmoid diverticulosis. Electronically Signed: Andrew Yee MD at 9:24 EDT ,
--- NOTE | 2021-10-10 08:23 | EX.ED.DYSGE1 ---
HPI History of Present Illness Chief Complaint: Abd Pain Informant: patient Onset/Context/Timing Onset: Days Narrative Narrative: Sent in by PCP for rule out appendicitis. I spoke with her PCP prior to her arrival. Patient with 3 days history for abdominal pain fatigue chills and decreased appetite. Pain increasing. This morning diarrhea. No fevers. History of and cholecystectomy. Exam in the office right lower quadrant pain. No urinary symptoms reported negative UA in the office. No anticoagulation medicines. She has nonobstructive coronary disease followed by cardiology. She is on amiodarone for reported history of PVCs. No A. fib history. Denies any nausea or vomiting. Symptoms are worsening with car rides and bumps. Patient reported it is tiny amount for breakfast at 6 AM. Prior similar symptoms: No PFSH PFSH Medical History (Updated 10/10/21 @ 10:[address] Scooter Freeman, DO) Chest pain Multiple premature ventricular complexes Nonobstructive atherosclerosis of coronary artery Home Medications multivitamin with folic acid 400 mcg tablet 1 tab PO DAILY vitamin 07/20/13 [History Last Taken 05/27/19] cholecalciferol (vitamin D3) 50 mcg (2,000 unit) capsule 2,000 unit PO DAILY 05/28/19 [History Last Taken 05/27/19] calcium citrate 200 mg calcium-vitamin D3 3.125 mcg (125 unit) tablet 1 tab PO DAILY 06/23/19 [History Last Taken Unknown] atorvastatin 40 mg tablet 40 mg PO QHS #90 tabs 05/22/21 [Rx Last Taken Unknown] omeprazole 40 mg capsule,delayed release 20 mg PO DAILY 05/22/21 [History Last Taken Unknown] amiodarone 200 mg tablet See Rx Instructions .Route .COMPLEX #45 tabs 09/23/21 [Rx Last Taken Unknown] Allergy/AdvReac Type Severity Reaction Status Date / Time No Known Allergies Allergy Verified 10/10/21 08:11 Family History Mother Heart disease Father Heart disease Surgical History Cholecystectomy planned H/O section H/O tubal ligation History of cholecystectomy History of left heart catheterization (05/30/19) Social History (Reviewed 05/22/21 @ 08:47 by Fatuma Hector [employer]) household members: spouse number of children: 3 current occupational status: employed and retired current occupation: [employer] history of recent travel: Yes Smoking Status: Never smoker alcohol intake: current alcohol intake frequency: holidays/special occasions only substance use type: does not use well-balanced diet: daily or most days what type of physical activity do you participate in: walking frequency: 3-4 times per week seatbelt use: always do you feel safe at home: Yes additional social history: - Dejon ROS ROS ED Constitutional Constitutional ED: Reports chills; Denies fever(s) or sweats Eyes Eyes: Denies change in vision ENT ENT ED: Denies dysphagia or sore throat Cardiovascular Cardiovascular: Denies chest pain, leg edema, palpitations or racing heartbeat Respiratory/Chest Respiratory/Chest: Denies cough, dyspnea or dyspnea on exertion Gastrointestinal Gastrointestinal: Reports abdominal pain and diarrhea; Denies nausea or vomiting Genitourinary Genitourinary ED: Denies dysuria, hematuria or urinary frequency Musculoskeletal Musculoskeletal: Denies back pain, extremity pain or neck pain Integumentary Denies rash or wounds Neurologic Neurologic: Denies headache(s), paresthesias or weakness EXAM Physical Exam Const Vital Signs: 10/10/21 08:08 Temperature 97.3 F L Temperature Source Temporal Pulse Rate 66 Respiratory Rate 16 Blood Pressure 102/62 Blood Pressure Mean 75 Pulse Ox 97 Oxygen Delivery Method Room Air Positive well nourished and well developed General Appearance ED: well developed and NAD HEENT Reports moist mucous membranes normocephalic and atraumatic Eyes PERRL, EOMs intact bilaterally and conjunctivae normal General Eye ED: Yes normal appearance of both eyes Neck no lymphadenopathy and supple General: Negative for tenderness Chest Wall Chest: Negative for tenderness Resp normal respiratory effort and normal air movement Effort and Inspection: symmetric chest movement; Negative for respiratory distress Cardio regular rate, regular rhythm and no murmurs Peripheral Pulses: pulses 2+ throughout GI normal to inspection, nondistended, normoactive bowel sounds GI Narrative: Right lower quadrant tenderness to deep palpation no guarding or rebound. Negative Rovsing's. Negative McBurney's. Palpation: Negative for guarding or rebound tenderness present Back/Spine no CVA tenderness and no thoracic nor lumbar tenderness Extremity normal to inspection General Extremety ED: Negative for edema or tenderness General Extremity: Negative for edema Neuro oriented x3 and no sensory deficits noted Sensorium / Orientation: awake and alert Skin no rashes or lesions noted and no wounds MDM MDM MDM Narrative Medical decision making narrative: Patient tender right lower quadrant on exam. She declined any medications. Abdominal labs on normal, CT scan noncontrast obtained read by radiology with a normal appendix. There was calcifications around the cecal colon region, I did discuss with the radiologist states these are not appendicoliths, did note mesentery adenitis, she had diarrhea today. No C. difficile risk factors. Discussed continue oral fluids currently monitoring symptoms using Tylenol as needed. Return precautions. Soft abdomen on reevaluation. All questions were answered. Lab Data Attestation: I reviewed the patient's lab results. Labs: Laboratory Results - last 24 hr 10/10/21 10/10/21 10/10/21 08:25 08:25 08:25 PT 13.3 INR 1.0 APTT 30.0 Sodium 137 Potassium 3.8 Chloride 107 Carbon Dioxide 26.0 Anion Gap 4 L BUN 17 Creatinine 0.89 Estim Creat Clear Calc 58.83 Est GFR (MDRD) Af Amer 81 Est GFR (MDRD) Non-Af 67 BUN/Creatinine Ratio 19.2 Glucose 101 Lactic Acid 0.7 Calcium 8.9 Total Bilirubin 0.60 AST 28 ALT 38 Alkaline Phosphatase 64 Total Protein 7.0 Albumin 3.7 Globulin 3.3 Albumin/Globulin Ratio 1.1 Lipase 90 Urine Color Urine Clarity Urine pH Ur Specific [place] Urine Protein Urine Glucose (UA) Urine Ketones Urine Occult Blood Urine Nitrite Urine Bilirubin Urine Urobilinogen Ur Leukocyte Esterase Urine RBC Urine WBC Ur Squamous Epith Cells Urine Bacteria Urine Mucus Blood Type Antibody Screen 10/10/21 10/10/21 08:25 09:47 PT INR APTT Sodium Potassium Chloride Carbon Dioxide Anion Gap BUN Creatinine Estim Creat Clear Calc Est GFR (MDRD) Af Amer Est GFR (MDRD) Non-Af BUN/Creatinine Ratio Glucose Lactic Acid Calcium Total Bilirubin AST ALT Alkaline Phosphatase Total Protein Albumin Globulin Albumin/Globulin Ratio Lipase Urine Color Yellow Urine Clarity Clear Urine pH 5.0 Ur Specific [place] 1.015 Urine Protein Negative Urine Glucose (UA) Normal Urine Ketones Negative Urine Occult Blood Negative Urine Nitrite Negative Urine Bilirubin Negative Urine Urobilinogen Normal Ur Leukocyte Esterase 25 H Urine RBC 0 SEEN Urine WBC 0 SEEN Ur Squamous Epith Cells 0-5 SEEN Urine Bacteria 0 SEEN Urine Mucus 0 SEEN Blood Type A POSITIVE Antibody Screen NEGATIVE Radiography Diagnostic Testing: Clinical Impression(s) from Imaging Studies Abdomen/Pelvis CT 10/10/21 08:23 IMPRESSION: Status post cholecystectomy. Increased markings are seen in the root of mesentery. This is a nonspecific finding. Small lymph nodes are seen in the mesenteric fat in the right lower quadrant is suggestive of mesenteric adenitis. Sigmoid diverticulosis. Electronically Signed: Andrew Yee MD at 9:24 EDT , Discharge Plan Triage Chief Complaint: Abd Pain ED Provider: Scooter Freeman Dx/Rx/DC Orders Clinical Impression: Abdominal pain, Diarrhea Instructions: Abdominal Pain Prescriptions: No Action calcium citrate-vitamin D3 200-125 mg-unit tablet 1 tab PO DAILY omeprazole 40 mg capsule,delayed release(DR/EC) 20 mg PO DAILY atorvastatin 40 mg tablet 40 mg PO QHS Qty: 90 3RF multivitamin with folic acid 1 TABLET tablet 1 tab PO DAILY cholecalciferol (vitamin D3) 2,000 UNIT capsule 2,000 unit PO DAILY amiodarone 200 mg tablet See Rx Instructions .ROUTE .COMPLEX Qty: 45 3RF Dose Instruction: TAKE 1/2 TABLET BY MOUTH EVERY DAY Rx Instructions: TAKE 1/2 TABLET BY MOUTH EVERY DAY Primary Care Provider: Shimon Potts Referrals: Shimon Potts MD [Primary Care Provider] - 3-5 Days Activity Restrictions/Additional Instructions: Normal appendix, no appendicolith with discussion with radiology. Labs are normal. Soft diet Tylenol as needed monitor symptoms. Return if any worsening symptoms. Disposition Disposition: Home, Self Care Discharge Date/Time: 10/10/21 10:28
[2021-10-10] MEDS: 0.9% Normal Saline 1,000 ML 150 ML IV (08:39)
[2021-10-10 08:45] LABS: Absolute Lymphocyte Count 0.81 X10^3/uL (0.83-4.51); Absolute Neutrophil Count 3.7 X10^3/uL (2.0-7.7); Basophil# 0.03 X10^3/uL; Basophil% 0.6 % (0-1); Eosinophil# 0.04 X10^3/uL; Eosinophils% 0.8 % (0-5); Hematocrit 42.1 % (37-47); Hemoglobin 13.9 g/dL (12.0-15.0); Lymphocyte # 0.81 X10^3/ul (0.83-4.51); Lymphocyte % 15.7 % (19-41); Mean Corpuscular Hgb 32.8 pg (27.0-32.0); Mean Corpuscular Volume 99.3 fL (81-99); Mean Platelet Vol. 10.6 fl (6.2-12.0); Monocyte# 0.53 X10^3/uL; Monocyte% 10.3 % (0-10); NRBC Flagged by Analyzer 0 % (0-5); Neutrophil # 3.71 X10^3/uL (2.7-7.7); Platelet Count 241 K/mm3 (150-450); RBC Distribution Width CV 11.9 % (11.6-14.6); RBC Distribution Width SD 43.3 fl (35.1-43.9); Red Blood Count 4.24 M/mm3 (4.2-5.4); White Blood Count 5.2 K/mm3 (4.4-11.0)
[2021-10-10 09:05] LABS: ALB/GLOB Ratio 1.1 RATIO (0.9-2.4); AST(SGOT) 28 U/L (15-37); Alanine Aminotransfer ALT/SGPT 38 U/L (13-56); Albumin, Serum 3.7 g/dL (3.2-5.0); Alkaline Phosphatase 64 U/L (45-117); Anion Gap 4 (5-15); BUN 17 mg/dL (7-18); BUN/Creat Ratio 19.2 RATIO (10-20); Calcium,Total 8.9 mg/dL (8.5-10.1); Chloride 107 mmol/L (98-107); Creatinine, Serum 0.89 mg/dL (0.55-1.02); EST Glomerular Filtration Rate 67 mL/min (>60); Est Glom Filt Rate - Afr Amer 81 mL/min (>60); Estimated Creatinine Clearance 58.83 ml/min; Globulin 3.3 g/dL (2.2-4.2); Glucose 101 mg/dL (74-106); Lipase 90 U/L (73-393); Potassium 3.8 mmol/L (3.5-5.1); Sodium Level 137 mmol/L (136-145)
[2021-10-10 09:14] LABS: Lactic Acid 0.7 mmol/L (0.4-1.9)
[2021-10-10 09:21] LABS: Prothrombin Time (Protime)PT. 13.3 SECONDS (11.7-14.9)
[2021-10-10 10:03] LABS: Bacteria 0 SEEN /hpf (None Seen); Mucous, Urine 0 SEEN /hpf (<or=2+); Red Blood Cells-Urine 0 SEEN /hpf (0-5); White Blood Cells 0 SEEN /hpf (0-5)
[2021-10-10 10:15] LABS: Color, Urine Yellow (Yellow); Glucose, Dipstick Normal (Normal); Ketone-Dipstick Negative (Negative); Leukocyte Esterase-Dipstick 25 /ul (Negative); Nitrite-Dipstick Negative (Negative); Occult Blood-Urine Negative /ul (Negative); Protein-Dipstick Negative (Negative); Specific Gravity, Urine 1.015 (1.002-1.030); Urine Bilirubin Dipstick Negative (Negative); Urine Urobilinogen Normal (Normal)
[2021-10-10 10:16] LABS: Urine Clarity Clear (Clear)
[2021-10-10 10:17] LABS: Squamous Epithelial Cells - UA 0-5 SEEN /hpf (5-10)
== END 2021-10-10 10:28 | disposition home or self-care (01) ==
PROVIDERS: Emergency Provider Emergency Medicine; PCP Family Medicine; Visit Provider Emergency Medicine
DX: R10.31 Right lower quadrant pain (principal); R19.7 Diarrhea, unspecified; I25.10 Atherosclerotic heart disease of native coronary artery without angina pectoris; I49.3 Ventricular premature depolarization; Z90.49 Acquired absence of other specified parts of digestive tract; Z79.899 Other long term (current) drug therapy
CPT/HCPCS: 74176; 80053; 81001; 83605; 83690; 85025; 85610; 85730; 86850; 86900; 86901; 96360; 96361; 99283; J7030

== ENCOUNTER 2021-11-01 21:13 | Emergency (ER) | payer OTHER, SELFPAY ==
[2021-11-01 21:14] VITALS: BP 132/59; PULSE 79; RESP 18; TEMP 35.4; O2SAT 98; BMI 25.8
--- NOTE | 2021-11-01 22:10 | EKG12_ITS ---
Test Reason : DYSRHYTHMIA Blood Pressure : / mmHG Vent. Rate : 072 BPM Atrial Rate : 072 BPM P-R Int : 184 ms QRS Dur : 122 ms QT Int : 454 ms P-R-T Axes : 068 044 051 degrees QTc Int : 497 ms Sinus rhythm with frequent and consecutive Premature ventricular complexes Abnormal ECG Confirmed by ELIUD LUO, ROSEANNE ([id number]), deputy editor in chief TEOIFLO ASCENCIO ([id number]) on 11/03/2021 10:07:14 AM Referred By: ZAYRA Confirmed By:ROSEANNE KLINE MD
--- NOTE | 2021-11-01 22:23 | ED.VIS.GI ---
HPI HPI - GI History of Present Illness Chief Complaint: Abd Pain Informant: patient Narrative Narrative: Patient was at a function tonight. She had just finished eating some chicken, mashed potatoes, potatoes, brownie and a few other things. There is nothing that she thought was out of the ordinary. She started to get periumbilical discomfort. She described it as a bad cramp. It radiated up to the epigastric area and then went to both sides. It did go to count of the lower rib cage area or just under this but was equal side to side. It did not go up higher into the chest. She did not get short of breath. Not lightheaded. She did end up getting nauseated and vomited. There is no blood. But things have calm down quite a bit since then. Her symptoms are almost gone now. She has absolutely no nausea now. She does have a history of GERD. She has had heart cath that showed very mild disease within the last couple years. She also had a normal myocardial stress test/scan at the end of May this year that showed no ischemic areas. She has a history of frequent PVCs although she does not really feel these. She is on amiodarone for that. She is on atorvastatin also. None of her medications are new. Nothing really made this better or worse. There is family history of heart disease but not starting until in the 60s. Patient was a little bit reluctant to have work-up initially. She was thinking that she is feeling a lot better and maybe she should have come. But she deals have a little bit of symptoms left. We did work this up. Her biggest concern was her heart. [facility] Medical History (Updated 11/02/21 @ 01:[address] Gerhard Valenzuela MD) Chest pain Multiple premature ventricular complexes Nonobstructive atherosclerosis of coronary artery Home Medications multivitamin with folic acid 400 mcg tablet 1 tab PO DAILY vitamin 07/20/13 [History Last Taken 05/27/19] cholecalciferol (vitamin D3) 50 mcg (2,000 unit) capsule 1,000 unit PO DAILY 05/28/19 [History Last Taken 05/27/19] calcium citrate 200 mg calcium-vitamin D3 3.125 mcg (125 unit) tablet 1 tab PO DAILY 06/23/19 [History Last Taken Unknown] atorvastatin 40 mg tablet 40 mg PO QHS #90 tabs 05/22/21 [Rx Last Taken Unknown] omeprazole 40 mg capsule,delayed release 20 mg PO DAILY 05/22/21 [History Last Taken Unknown] amiodarone 200 mg tablet 100 mg PO DAILY 11/01/21 [History Last Taken Unknown] Allergy/AdvReac Type Severity Reaction Status Date / Time No Known Allergies Allergy Verified 11/01/21 21:14 Family History Mother Heart disease Father Heart disease Surgical History Cholecystectomy planned H/O section H/O tubal ligation History of cholecystectomy History of left heart catheterization (05/30/19) Social History household members: spouse number of children: 3 current occupational status: employed and retired current occupation: [employer] history of recent travel: Yes Smoking Status: Never smoker alcohol intake: current alcohol intake frequency: holidays/special occasions only substance use type: does not use well-balanced diet: daily or most days what type of physical activity do you participate in: walking frequency: 3-4 times per week seatbelt use: always do you feel safe at home: Yes additional social history: - Dejon DORSEY SUNITA ED Constitutional Constitutional ED: Denies chills, fever(s) or subjective ENT ENT ED: Denies sore throat Cardiovascular Cardiovascular: Denies palpitations or racing heartbeat Respiratory/Chest Respiratory/Chest: Denies cough or dyspnea Gastrointestinal Gastrointestinal: Reports abdominal pain, nausea and vomiting; Denies constipation, diarrhea or melena Genitourinary Genitourinary ED: Denies dysuria Musculoskeletal Musculoskeletal: Denies back pain or neck pain Integumentary Denies rash Neurologic Neurologic: Denies headache(s), paresthesias or weakness Endocrine Endocrinology: Denies polydipsia or polyuria Hematologic/Lymphatic Hematologic/Lymphatic: Denies easy bleeding or easy bruising Allergic/Immunologic Allergic/Immunologic ED: Denies urticaria EXAM Physical Exam Const Vital Signs: 11/01/21 21:14 Temperature 95.8 F L Temperature Source Temporal Pulse Rate 79 Respiratory Rate 18 Blood Pressure 132/59 H Blood Pressure Mean 83 Pulse Ox 98 Oxygen Delivery Method Room Air Positive well nourished and well developed General Appearance ED: well developed; Negative for pallor HEENT Reports moist mucous membranes atraumatic Eyes General Eye ED: Negative for scleral icterus Neck no JVD Resp normal respiratory effort and clear to auscultation bilaterally Cardio regular rate and regular rhythm Cardio Narrative: Occasional extrasystole heard. GI non-tender, non-distended and no masses GI Narrative: No pulsatile mass. No tenderness rebound or guarding. No hernia felt. Patient is also almost completely asymptomatic now. Back/Spine no CVA tenderness Extremity full ROM Neuro moves all extremities and no sensory deficits noted Sensorium / Orientation: alert; Negative for confused, lethargic or stuporous Psych mental status grossly normal Skin no wounds Skin Narrative: Not diaphoretic General Skin Exam: Negative for jaundice or pallor Rashes: no rashes MDM MDM MDM Narrative Medical decision making narrative: Patient CBC shows normal white count hemoglobin and platelets. Electrolytes are normal other than very subtle changes of chloride BUN and creatinine. Glucose is just 125. There is some signs of mild dehydration with elevated BUN to creatinine ratio. First troponin is negative at 5. This is repeated at 6. Lipase is 252. Patient's rechecked. She would like to go home. She feels this is just some indigestion. She carries Pepto-Bismol with her and would like to take the Pepto-Bismol she has in her purse. Repeat exam shows minimal epigastric discomfort but no real tenderness. Nausea is still completely gone. She is not having chest pain. We discussed reasons to return. Lab Data Attestation: I reviewed the patient's lab results. Labs: Laboratory Results - last 24 hr 11/01/21 11/01/21 11/02/21 22:22 22:22 00:05 WBC 10.3 RBC 4.10 L Hgb 13.2 Hct 40.2 MCV 98.0 MCH 32.2 H MCHC 32.8 RDW Std Deviation 43.1 RDW Coeff of Michele 11.9 Plt Count 258 MPV 10.6 Immature Gran % (Auto) 0.400 Neut % (Auto) 78.5 H Lymph % (Auto) 12.5 L Buckingham % (Auto) 7.5 Eos % (Auto) 0.5 Baso % (Auto) 0.6 Absolute Neuts (auto) 8.1 H Absolute Lymphs (auto) 1.29 Nucleated RBC % 0 Sodium 141 Potassium 4.3 Chloride 108 H Carbon Dioxide 27.0 Anion Gap 6 BUN 27 H Creatinine 1.12 H Estim Creat Clear Calc 46.75 Est GFR (MDRD) Af Amer 62 Est GFR (MDRD) Non-Af 51 L BUN/Creatinine Ratio 24.1 H Glucose 125 H Calcium 9.2 Total Bilirubin 0.30 AST 61 H ALT 45 Alkaline Phosphatase 62 Troponin I High Sens 5 6 Total Protein 7.3 Albumin 3.9 Globulin 3.4 Albumin/Globulin Ratio 1.1 Lipase 252 EKG Initial EKG: Comments: EKG done for upper abdominal pain read by me shows normal sinus rhythm with overall rate of 72. There are multiple PVCs. No acute ST elevation or depression. CT interval is normal. QRS duration is slightly long as is QTC. Discharge Plan Triage Chief Complaint: Abd Pain ED Provider: Gerhard Valenzuela Dx/Rx/DC Orders Clinical Impression: Acute epigastric pain Instructions: ED Epigastric Pain Uncertain Cause Prescriptions: No Action calcium citrate-vitamin D3 200-125 mg-unit tablet 1 tab PO DAILY omeprazole 40 mg capsule,delayed release(DR/EC) 20 mg PO DAILY atorvastatin 40 mg tablet 40 mg PO QHS Qty: 90 3RF multivitamin with folic acid 1 TABLET tablet 1 tab PO DAILY cholecalciferol (vitamin D3) 2,000 UNIT capsule 1,000 unit PO DAILY amiodarone 200 mg tablet 100 mg PO DAILY Primary Care Provider: Shimon Potts Referrals: Shimon Potts MD [Primary Care Provider] - 1-2 Days if not improving Disposition Disposition: Home, Self Care
[2021-11-01 22:30] LABS: Absolute Lymphocyte Count 1.29 X10^3/uL (0.83-4.51); Absolute Neutrophil Count 8.1 X10^3/uL (2.0-7.7); Basophil# 0.06 X10^3/uL; Basophil% 0.6 % (0-1); Eosinophil# 0.05 X10^3/uL; Eosinophils% 0.5 % (0-5); Hematocrit 40.2 % (37-47); Hemoglobin 13.2 g/dL (12.0-15.0); Lymphocyte # 1.29 X10^3/ul (0.83-4.51); Lymphocyte % 12.5 % (19-41); Mean Corp Hgb Conc 32.8 g/dL (32-36); Mean Corpuscular Hgb 32.2 pg (27.0-32.0); Mean Platelet Vol. 10.6 fl (6.2-12.0); Monocyte# 0.77 X10^3/uL; Monocyte% 7.5 % (0-10); NRBC Flagged by Analyzer 0 % (0-5); Neutrophil # 8.11 X10^3/uL (2.7-7.7); Neutrophil % 78.5 % (47-70); Platelet Count 258 K/mm3 (150-450); RBC Distribution Width CV 11.9 % (11.6-14.6); RBC Distribution Width SD 43.1 fl (35.1-43.9); White Blood Count 10.3 K/mm3 (4.4-11.0)
[2021-11-01 22:51] LABS: ALB/GLOB Ratio 1.1 RATIO (0.9-2.4); AST(SGOT) 61 U/L (15-37); Alanine Aminotransfer ALT/SGPT 45 U/L (13-56); Albumin, Serum 3.9 g/dL (3.2-5.0); Alkaline Phosphatase 62 U/L (45-117); Anion Gap 6 (5-15); BUN 27 mg/dL (7-18); BUN/Creat Ratio 24.1 RATIO (10-20); Calcium,Total 9.2 mg/dL (8.5-10.1); Chloride 108 mmol/L (98-107); Creatinine, Serum 1.12 mg/dL (0.55-1.02); EST Glomerular Filtration Rate 51 mL/min (>60); Est Glom Filt Rate - Afr Amer 62 mL/min (>60); Estimated Creatinine Clearance 46.75 ml/min; Globulin 3.4 g/dL (2.2-4.2); Glucose 125 mg/dL (74-106); Lipase 252 U/L (73-393); Potassium 4.3 mmol/L (3.5-5.1); Protein, Total 7.3 g/dL (6.4-8.2); Sodium Level 141 mmol/L (136-145); Troponin-I HS 5 pg/mL (3.0-54.0)
[2021-11-02 00:41] LABS: Troponin-I HS 6 pg/mL (3.0-54.0)
[2021-11-02 01:19] VITALS: RESP 16
== END 2021-11-02 01:20 | disposition home or self-care (01) ==
PROVIDERS: Emergency Provider Emergency Medicine; PCP Family Medicine; Visit Provider Emergency Medicine
DX: R10.13 Epigastric pain (principal); K21.9 Gastro-esophageal reflux disease without esophagitis; I25.10 Atherosclerotic heart disease of native coronary artery without angina pectoris; I49.3 Ventricular premature depolarization; Z79.899 Other long term (current) drug therapy
CPT/HCPCS: 80053; 83690; 84484; 85025; 93005; 99283; A4216

== ENCOUNTER 2021-11-21 07:52 | Day surgery (SDC) | payer OTHER, SELFPAY ==
[2021-11-21] VITALS (8 sets, daily range): BP systolic 96–116; BP diastolic 56–70; PULSE 60–89; RESP 16–18; TEMP 36.1–36.8; O2SAT 93–100; BMI 25.7
--- NOTE | 2021-11-21 | EGD_PTH ---
PATIENT: DEVANG YOUSSEF LOC: EN U#:[id number] AGE/SX: 70/F ROOM: RE11/21/[address]: Dr. Tl Cabrales MD : 1950 BED: DIS: 11/21/2021 SPEC #: [id number] RECD: 11/21/21 12:01 STATUS: AUDIE ABDIFATAH #: [id number] TANI: 11/21/21 00:[address]: Tl Cabrales DEPT: SURGICAL PATHOLOGY RECD BY: Germán Montes ENTERED: 11/21/21 12:02 SP TYPE: EGD BIOPSY [facility] DR: Dr. Shimon Potts MD Tissues: A - Duodenum, NOS B - Gastric mucous membrane C - Stomach, NOS D - Esophageal mucous membrane E - Sigmoid colon biopsy Procedures: Special Stain Group II Surgery Specimen Level IV Alcian Blue/PAS (control) HEADER OPERATION: Colonoscopy, EGD ([facility] [place]) with biopsies PRE-OP DIAGNOSIS: Acute epigastric pain TISSUE SUBMITTED: A ? Duodenum biopsy, B ? Antrum biopsy for H. pylori and biopsy, C ? Greater curvature biopsy, D ? Distal esophagus biopsy, E ? Biopsy of distal sigmoid polyps MICROSCOPIC DIAGNOSIS A. Duodenum, biopsy: No pathologic change. B. Gastric antrum, biopsy: Chronic gastritis. See comment. C. Greater curvature stomach, biopsy: Chronic gastritis. D. Distal esophagus, biopsy: Gastroesophageal junctional mucosa with chronic inflammation. No evidence of goblet cell metaplasia. See comment. E. Distal sigmoid colon polyps, biopsy: Hyperplastic polyp. AM:ashley 11/25/2021 COMMENT B. The results of immunohistochemistry for Helicobacter pylori will be reported separately ([id number]). D. See comment. MICROSCOPIC DESCRIPTION Slides are reviewed. GROSS DESCRIPTION A - Received in fixative is one container labeled with the patient's name and designated duodenum biopsy. The specimen consists of one irregular fragment of light edwards soft tissue that measures 0.3 x 0.3 x 0.1 cm. The specimen is totally submitted in one cassette. B - Received in fixative is one container labeled with the patient's name and designated antrum biopsy. The specimen consists of one irregular fragment of light edwards soft tissue that measures 0.3 x 0.3 x 0.1 cm. The specimen is totally submitted in one cassette. C - Received in fixative is one container labeled with the patient's name and designated greater curvature biopsy. The specimen consists of one irregular fragment of light edwards soft tissue that measures 0.6 x 0.5 x 0.1 cm. The specimen is totally submitted in one cassette. D - Received in fixative is one container labeled with the patient's name and designated distal esophagus biopsy. The specimen consists of two irregular fragments of light edwards soft tissue that in aggregate measure 0.6 x 0.3 x 0.1 cm. The specimen is totally submitted in one cassette. E - Received in fixative is one container labeled with the patient's name and designated biopsy of distal sigmoid polyps. The specimen consists of two irregular fragments of light edwards soft tissue that in aggregate measure 0.6 x 0.3 x 0.1 cm. The specimen is totally submitted in one cassette. / SJ:ashley 11/21/2021 TC:3 CPT: 07889 x5, 87975
--- NOTE | 2021-11-21 08:08 | PCM.HP.BLA ---
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 Required: No Is patient in pain?: Yes (abdomen) Allergies No Known Allergies Allergy (Verified 11/06/21 13:11) Medications multivitamin with folic acid 400 mcg tablet 1 tab PO DAILY vitamin 07/20/13 [History Confirmed 11/06/21] cholecalciferol (vitamin D3) 50 mcg (2,000 unit) capsule 1,000 unit PO DAILY 05/28/19 [History Confirmed 11/06/21] calcium citrate 200 mg calcium-vitamin D3 3.125 mcg (125 unit) tablet 1 tab PO DAILY 06/23/19 [History Confirmed 11/06/21] atorvastatin 40 mg tablet 40 mg PO QHS #90 tabs 05/22/21 [Rx Confirmed 11/06/21] omeprazole 40 mg capsule,delayed release 20 mg PO DAILY 05/22/21 [History Confirmed 11/06/21] amiodarone 200 mg tablet 100 mg PO DAILY 11/01/21 [History Confirmed 11/06/21] PFSH Medical History? Chest pain Multiple premature ventricular complexes Nonobstructive atherosclerosis of coronary artery Surgical History? Cholecystectomy planned H/O section H/O tubal ligation History of cholecystectomy History of left heart catheterization (05/30/19) S/P cataract extraction S/P tonsillectomy Family History? Mother Heart diseaseFather Heart disease Social History? household members:? spouse number of children:? 3 current occupational status:? employed and retired current occupation:? [employer] history of recent travel:? Yes Smoking Status:? Never smoker alcohol intake:? current alcohol intake frequency: holidays/special occasions only substance use type:? does not use well-balanced diet:? daily or most days what type of physical activity do you participate in:? walking frequency:? 3-4 times per week seatbelt use:? always do you feel safe at home:? Yes additional social history:? - Dejon HPI HPI HPI: DEVANG OBRECHT, is a 70 F who presents to the office today for surgical consultation regarding epigastric pain.? The patient is referred by Dr. Shimon Potts and a written copy of my surgical consult recommendations will be returned to him.? It seems apparent that she has been having this epigastric pain for over a year.? She was seen by Dr. Wilkinsonori it was felt not to be of cardiac etiology felt to be consistent with reflux and so she was initiated on omeprazole.? Recently apparently she has had more severe attacks and was seen in the emergency room where work-up was done and was not remarkable normal laboratory normal CT no acute findings identified and the patient is being referred for surgical evaluation.? At the time of her CT she had some small lymph nodes seen in the mesenteric fat in the right lower quadrant possibly consistent with his enteric adenitis she had some sigmoid diverticulosis she has had evidence of a previous cholecystectomy.? But her current complaints are more of a chronic problem in this regard with episodes of acute exacerbation.? She did not denies fever or chills she does gets diaphoretic with the pain and has nausea.? She has had vomiting.? She does not feel like this represents an obstruction of the bowel does not get abdominal distention.? No bright red blood per rectum or melena. Her previous colonoscopy was greater than 10 years ago.? Family history is negative for colon polyps or colon cancer. In addition to the omeprazole 20 mg daily she does take Pepto-Bismol as needed and she thinks that does help some. When she had her cholecystectomy which was remotely she that was done for gallstone disease. ROS General General: Yes fatigue; No weight change, appetite, colon cancer, breast cancer or weakness HEENT HEENT: No difficulty swallowing, eye injury, eye surgery, swollen glands or hoarseness Endo Endocrine: No thyroid disease, diabetes mellitus, thyroid cancer, Hair loss, heat intolerance or cold intolerance Skin Skin: No rash or changing moles Breast Breast: No left breast lump, right breast lump, nipple discharge, breast pain, abnormal mammogram, abnormal US or breast enlargement Musc Musculoskeletal: No back problems, arthritis, rheumatoid arthritis, gout or joint pain Cardio Cardiovascular: No murmur, pacemaker, heart disease, atrial fibrillation, high blood pressure, heart attack, heart stent, palpitations, shortness of breat with exertion or chest pain Psych Psychiatric: No depression, anxiety or hearing voices Resp Respiratory: No shortness of breath, No sleep apnea, No cough, No COPD, No asthma, No emphysema and No wheezing Gastro Gastrointestinal: Yes abdominal pain, Yes nausea or vomiting, No diarrhea, No constipation, No blood in stool, No acid reflux, No hemorrhoids, No ulcers, No gallbladder problem and No black,tarry stools Jamari Hematologic: No blood thinners, No blood disorders, No bleeding, No anemia and No blood clots Neuro Neurologic: No system reviewed and no additional complaints, except as documented, No as per HPI, No abnormal gait, No abnormal hearing, No abnormal movements, No abnormal speech, No behavioral changes, No burning sensations, No confusion, No convulsions, No disequilibrium, No dizziness, No localized weakness, No frequent falls, No headache(s), No lack of coordination, No loss of vision, No memory loss, No numbness, No other visual disturbances, No radicular pain, No restless legs, No sensory deficit, No syncope, No tingling, No tremor(s), No weakness and No other Exam Const General: cooperative, healthy appearing, comfortable and no acute distress [facility] Head: normal to inspection Eyes General: appearance normal, both eyes and all related structures Neck Neck: normal visual inspection Chest Chest palpation & inspection: normal inspection of the chest Resp Effort & Inspection: normal respiratory effort Auscultation: clear to auscultation bilaterally Cardio Rate: regular rate Rhythm: regular rhythm GI Inspection: normal to inspection Palpation: soft and no hepatosplenomegaly Auscultation: normal bowel sounds Other: No hepatosplenomegaly.? Not distended.? No focal tenderness.? No mass.? No rebound or guarding Musc Cervical Spine: normal cervical lordosis Skin General: no rashes or lesions noted Neuro General: patient alert, patient awake and patient oriented x3 Extrem General: no calf tenderness Psych Appearance: grossly normal Assessment and Plan Assessment and Plan (1) Acute epigastric pain: ?Status:?Acute ?Plan: Recent acute exacerbation of epigastric bilateral subcostal pain of undetermined etiology.? There is a chronicity to this problem as she was evaluated approximately a year ago for retrosternal discomfort and was felt not to have cardiac etiology. She takes omeprazole and as needed Pepto-Bismol with some improvement but she continues to have attacks that she says are very severe. Etiology is not clear at this time.? She was seen in the emergency room had and had normal liver function tests so I have a lower suspicion that this represents a primary common bile duct stone. I do think that peptic ulcer disease would therefore secondarily be most likely a work acute reflux problems.? In addition to complicate features she has not had a colonoscopy for greater than 10 years.? I do propose for her a combined esophagogastroduodenoscopy with possible biopsy and very careful inspection of the duodenum stomach GE junction esophagus for any etiology to epigastric and retrosternal pain.? I propose for a colonoscopy with possible biopsy or polypectomy as indicated.? She is aware of the technique, benefit, risk, alternatives.? She has had an opportunity to ask and have questions answered.? I appreciate the opportunity of assisting with her surgical care. Copy: Dr. Shimon Cabrales M.D., F.A.C.S I have re-examined the patient. There are no clinical changes since date of exam. Tl Cabrales M.D., F.A.C.S.
[2021-11-21] MEDS: Lactated Ringers 1,000 ML 15 ML IV (08:25)
--- NOTE | 2021-11-21 09:00 | IMM_PTH ---
PATIENT: DEVANG YOUSSEF LOC: EN U#:[id number] AGE/SX: 70/F ROOM: RE11/21/[address]: Dr. Tl Cabrales MD : 1950 BED: DIS: 11/21/2021 SPEC #: [id number] RECD: 11/21/21 13:20 STATUS: AUDIE REAtilio #: [id number] TANI: 11/21/21 09:[address]: Tl Cabrales DEPT: IMMUNOHISTOCHEMISTRY RECD BY: Kym Espinal ENTERED: 11/21/21 13:20 SP TYPE: IMMUNO OTHR DR: Dr. Shimon Potts MD Tissues: B - Stomach, NOS Procedures: H Pylori (initial) PHYSICIAN & INSTITUTION [place] [id number] SPECIMEN INFORMATION: Tissue Source: B ? Antrum biopsy Clinical Info: Acute epigastric pain Specimen Number: [id number] CPT code: 09303 METHODOLOGY: Deparaffinized sections of prefer/formalin-fixed tissue or PAP/DQ stained slides are incubated with monoclonal/polyclonal antibodies/oligonucleotide probes. Localization is made via biotin free immunoperoxidase method. Appropriate controls are performed and reacted as expected. Results on target cell population are indicated in the following table: RESULTS: ANTIBODY / CLONE RESULT Block B H Pylori (polyclonal) negative These tests were developed and their performance characteristics determined by [facility]. They may not have been cleared or approved by the U.S. Food and Drug Administration. The FDA has determined that such clearance or approval is not necessary. The above immunohistochemical/dualISH markers are ordered and reviewed by the Pathologist. INTERPRETATION: B. Antrum, biopsy: Negative for Helicobacter pylori organisms. AM:ashley 11/25/2021
--- NOTE | 2021-11-21 10:03 | OP.EGD_ITS ---
Patient Name: Marlene Lee Procedure Date: 11/21/2021 9:18 AM Date of : 1950 Age: 70 Procedure: Upper GI endoscopy Indications: Abdominal pain in the right upper quadrant Providers: Tl Cabrales MD Medicines: See the Anesthesia note for documentation of the administered medications Complications: No immediate complications. Procedure: Pre-Anesthesia Assessment: - Prior to the procedure, a History and Physical was performed, and patient medications and allergies were reviewed. The patient's tolerance of previous anesthesia was also reviewed. The risks and benefits of the procedure and the sedation options and risks were discussed with the patient. All questions were answered, and informed consent was obtained. Prior Anticoagulants: The patient has taken no previous anticoagulant or antiplatelet agents. ASA Grade Assessment: II - A patient with mild systemic disease. After reviewing the risks and benefits, the patient was deemed in satisfactory condition to undergo the procedure. After obtaining informed consent, the endoscope was passed under direct vision. Throughout the procedure, the patient's blood pressure, pulse, and oxygen saturations were monitored continuously. The colonoscope was introduced through the mouth, and advanced to the second part of duodenum. The upper GI endoscopy was accomplished without difficulty. The patient tolerated the procedure well. Scope In: 9:23:48 AM Scope Out: 9:31:00 AM Total Procedure Duration Time 0 hours 7 minutes 12 seconds Findings: LA Grade A (one or more mucosal breaks less than 5 mm, not extending between tops of 2 mucosal folds) esophagitis with no bleeding was found 41 cm from the incisors. Biopsies were taken with a cold forceps for histology. A small hiatal hernia was present. Diffuse mildly erythematous mucosa without bleeding was found in the entire examined stomach. Biopsies were taken with a cold forceps for histology. The examined duodenum was normal. Biopsies were taken with a cold forceps for histology. Impression: - LA Grade A reflux esophagitis. Biopsied. - Small hiatal hernia. - Erythematous mucosa in the stomach. Biopsied. - Normal examined duodenum. Biopsied. Recommendation: - Discharge patient to home. - Resume previous diet. - Continue present medications Suspicous for bile reflux gastritis. Await path. - Use sucralfate tablets 1 gram PO BID. Procedure Code(s): --- Professional --- 50180, Esophagogastroduodenoscopy, flexible, transoral; with biopsy, single or multiple Diagnosis Code(s): --- Professional --- K21.0, Gastro-esophageal reflux disease with esophagitis K44.9, Diaphragmatic hernia without obstruction or gangrene K31.89, Other diseases of stomach and duodenum R10.11, Right upper quadrant pain CPT copyright 2017 [employer]. All rights reserved. The codes documented in this report are preliminary and upon registered nurse teacher review may be revised to meet current compliance requirements. Tl Cabrales MD 11/21/2021 10:03:16 AM This report has been signed electronically. Number of Addenda: 0 Note Initiated On: 11/21/2021 9:18 AM
--- NOTE | 2021-11-21 10:04 | OP.CCLET_ITS ---
11/21/2021 Shimon Potts [address] [place] [address] Re : Upper GI endoscopy procedure for Marlene [facility] Dear Dr. Potts This procedure was performed on Sunday, November 21, 2021. My impressions and recommendations are as follows: Impressions : - LA Grade A reflux esophagitis. Biopsied. - Small hiatal hernia. - Erythematous mucosa in the stomach. Biopsied. - Normal examined duodenum. Biopsied. Recommendations : - Discharge patient to home. - Resume previous diet. - Continue present medications Suspicous for bile reflux gastritis. Await path. - Use sucralfate tablets 1 gram PO BID. My findings are described in the full procedure note, which is enclosed. If I can be of further assistance, please feel free to contact me at Doctor phone number(s): Work: . Sincerely, Tl Cabrales MD 11/21/2021 10:03:16 AM This report has been signed electronically.
--- NOTE | 2021-11-21 10:08 | OP.COLON_ITS ---
Patient Name: Marlene Lee Procedure Date: 11/21/2021 9:31 AM Date of : 1950 Age: 70 Procedure: Colonoscopy Indications: Screening for colorectal malignant neoplasm Providers: Tl Cabrales MD Medicines: See the Anesthesia note for documentation of the administered medications Patient Profile: Last Colonoscopy: more than 10 years ago. Complications: No immediate complications. Procedure: Pre-Anesthesia Assessment: - Prior to the procedure, a History and Physical was performed, and patient medications and allergies were reviewed. The patient's tolerance of previous anesthesia was also reviewed. The risks and benefits of the procedure and the sedation options and risks were discussed with the patient. All questions were answered, and informed consent was obtained. Prior Anticoagulants: The patient has taken no previous anticoagulant or antiplatelet agents. ASA Grade Assessment: II - A patient with mild systemic disease. After reviewing the risks and benefits, the patient was deemed in satisfactory condition to undergo the procedure. After I obtained informed consent, the scope was passed under direct vision. Throughout the procedure, the patient's blood pressure, pulse, and oxygen saturations were monitored continuously. The colonoscope was introduced through the anus and advanced to the cecum, identified by appendiceal orifice and ileocecal valve. The colonoscopy was performed with moderate difficulty due to multiple diverticula in the colon and a redundant colon. The patient tolerated the procedure well. The quality of the bowel preparation was good. The ileocecal valve and the appendiceal orifice were photographed. Scope In: 9:32:41 AM Scope Withdrawal Time 0 hours 9 minutes 34 seconds Scope Out: 9:57:03 AM Total Procedure Duration Time 0 hours 24 minutes 22 seconds Findings: The digital rectal exam findings include non-thrombosed internal hemorrhoids and internal hemorrhoids that prolapse with straining, but require manual replacement into the anal canal (Grade III). Multiple diverticula were found in the sigmoid colon and descending colon. A 4 mm polyp was found in the distal sigmoid colon. The polyp was sessile. The polyp was removed with a cold biopsy forceps. Resection and retrieval were complete. The exam was otherwise without abnormality. Impression: - Non-thrombosed internal hemorrhoids and internal hemorrhoids that prolapse with straining, but require manual replacement into the anal canal (Grade III) found on digital rectal exam. - Diverticulosis in the sigmoid colon and in the descending colon. - One 4 mm polyp in the distal sigmoid colon, removed with a cold biopsy forceps. Resected and retrieved. - The examination was otherwise normal. Recommendation: - Discharge patient to home. - Resume previous diet. - Continue present medications. - Repeat colonoscopy in 5 years for surveillance based on pathology results. - Telephone my office for pathology results in 1 week. Procedure Code(s): --- Professional --- 70423, Colonoscopy, flexible; with biopsy, single or multiple Diagnosis Code(s): --- Professional --- Z12.11, Encounter for screening for malignant neoplasm of colon K64.2, Third degree hemorrhoids D12.5, Benign neoplasm of sigmoid colon K57.30, Diverticulosis of large intestine without perforation or abscess without bleeding CPT copyright 2017 [employer]. All rights reserved. The codes documented in this report are preliminary and upon manager laundry review may be revised to meet current compliance requirements. Tl Cabrales MD 11/21/2021 10:08:45 AM This report has been signed electronically. Number of Addenda: 0 Note Initiated On: 11/21/2021 9:31 AM
--- NOTE | 2021-11-21 10:09 | OP.CCLET_ITS ---
11/21/2021 Shimon Potts [address] [place] [address] Re : Colonoscopy procedure for [facility] Dear Dr. Potts This procedure was performed on Sunday, November 21, 2021. My impressions and recommendations are as follows: Impressions : - Non-thrombosed internal hemorrhoids and internal hemorrhoids that prolapse with straining, but require manual replacement into the anal canal (Grade III) found on digital rectal exam. - Diverticulosis in the sigmoid colon and in the descending colon. - One 4 mm polyp in the distal sigmoid colon, removed with a cold biopsy forceps. Resected and retrieved. - The examination was otherwise normal. Recommendations : - Discharge patient to home. - Resume previous diet. - Continue present medications. - Repeat colonoscopy in 5 years for surveillance based on pathology results. - Telephone my office for pathology results in 1 week. My findings are described in the full procedure note, which is enclosed. If I can be of further assistance, please feel free to contact me at Doctor phone number(s): Work: . Sincerely, Tl Cabrales MD 11/21/2021 10:08:45 AM This report has been signed electronically.
== END 2021-11-21 12:27 | disposition home or self-care (01) ==
LOC: EN 07:53 → AC 07:55
PROVIDERS: PCP Family Medicine; Referring Provider Family Medicine; Visit Provider Surgery
PROC: 0DJD8ZZ Inspection of Lower Intestinal Tract, Via Natural or Artificial Opening Endoscopic (ICD-10-PCS; CPT 45378; principal; 2021-11-21 08:55)
DX: K29.50 Unspecified chronic gastritis without bleeding (principal); K64.2 Third degree hemorrhoids; K63.5 Polyp of colon; K31.89 Other diseases of stomach and duodenum; K57.30 Diverticulosis of large intestine without perforation or abscess without bleeding; K21.00 Gastro-esophageal reflux disease with esophagitis, without bleeding; K44.9 Diaphragmatic hernia without obstruction or gangrene; I25.10 Atherosclerotic heart disease of native coronary artery without angina pectoris; Z79.899 Other long term (current) drug therapy
CPT/HCPCS: 43239; 45380; 88305; 88313; 88342; J7120; J2405

== ENCOUNTER 2021-12-01 05:12 | Observation (INO) | payer OTHER, SELFPAY ==
[2021-12-01 05:15] VITALS: BP 149/73; PULSE 74; RESP 16; TEMP 35.9; O2SAT 98; BMI 26.5
[2021-12-01] MEDS: Morphine 4 MG/ML Syringe IV ×5 (05:42→20:33)
[2021-12-01] MEDS: Ondansetron 4 MG/2 ML Vial IV ×3 (05:42→14:32)
--- NOTE | 2021-12-01 06:02 | EKG12_ITS ---
Test Reason : CP Blood Pressure : / mmHG Vent. Rate : 069 BPM Atrial Rate : 069 BPM P-R Int : 194 ms QRS Dur : 110 ms QT Int : 466 ms P-R-T Axes : 073 054 056 degrees QTc Int : 499 ms Sinus rhythm with frequent Premature ventricular complexes Prolonged QT Abnormal ECG Confirmed by ELIUD LUO, ROSEANNE ([id number]), editorial director TEOFILO ASCENCIO ([id number]) on 12/03/2021 8:35:02 AM Referred By: Confirmed By:ROSEANNE KLINE MD
[2021-12-01 06:03] LABS: Absolute Lymphocyte Count 1.36 X10^3/uL (0.83-4.51); Absolute Neutrophil Count 6.9 X10^3/uL (2.0-7.7); Basophil# 0.05 X10^3/uL; Basophil% 0.6 % (0-1); Eosinophil# 0.04 X10^3/uL; Eosinophils% 0.4 % (0-5); Hematocrit 39.6 % (37-47); Hemoglobin 13.3 g/dL (12.0-15.0); Lymphocyte # 1.36 X10^3/ul (0.83-4.51); Mean Corp Hgb Conc 33.6 g/dL (32-36); Mean Corpuscular Hgb 32.5 pg (27.0-32.0); Mean Corpuscular Volume 96.8 fL (81-99); Mean Platelet Vol. 11.9 fl (6.2-12.0); Monocyte# 0.72 X10^3/uL; Monocyte% 7.9 % (0-10); NRBC Flagged by Analyzer 0 % (0-5); Neutrophil # 6.86 X10^3/uL (2.7-7.7); Neutrophil % 75.8 % (47-70); Platelet Count 190 K/mm3 (150-450); RBC Distribution Width CV 11.9 % (11.6-14.6); RBC Distribution Width SD 42.1 fl (35.1-43.9); Red Blood Count 4.09 M/mm3 (4.2-5.4); White Blood Count 9.1 K/mm3 (4.4-11.0)
--- NOTE | 2021-12-01 06:10 | RAD_ITS ---
STUDY: X-RAY CHEST REASON FOR EXAM: Female, 70 years old. Chest pain TECHNIQUE: Single AP portable view of the chest. COMPARISON: May 22, 2021 chest x-ray FINDINGS: The lungs are clear and expanded. There is no demonstrated pleural abnormality. Normal size heart. Normal mediastinum and kaitlin. Normal visualized pulmonary arteries. There is atherosclerotic tortuosity of the aortic arch and descending thoracic aorta. There are diffuse degenerative changes of the visualized thoracic spine. Normal visualized ribs, clavicles, and shoulders. There is no demonstrated abnormality of the visualized soft tissue structures of the upper abdomen. RAD/Chest 1 View (Portable) IMPRESSION: Degenerative changes, as described above. No demonstrated acute cardiopulmonary process. Electronically Signed: Annia Manuel MD at 6:25 EDT ,
[2021-12-01 06:23] LABS: AST(SGOT) 786 U/L (15-37); Alanine Aminotransfer ALT/SGPT 504 U/L (13-56); Albumin, Serum 3.7 g/dL (3.2-5.0); Alkaline Phosphatase 117 U/L (45-117); Anion Gap 7 (5-15); BUN 17 mg/dL (7-18); BUN/Creat Ratio 21.4 RATIO (10-20); Calcium,Total 9.2 mg/dL (8.5-10.1); Chloride 106 mmol/L (98-107); Creatinine, Serum 0.79 mg/dL (0.55-1.02); EST Glomerular Filtration Rate 76 mL/min (>60); Est Glom Filt Rate - Afr Amer 92 mL/min (>60); Estimated Creatinine Clearance 52.36 ml/min; Globulin 3.5 g/dL (2.2-4.2); Glucose 134 mg/dL (74-106); Lipase 29612 U/L (73-393); Potassium 4.4 mmol/L (3.5-5.1); Protein, Total 7.2 g/dL (6.4-8.2); Sodium Level 138 mmol/L (136-145)
[2021-12-01 06:34] LABS: Troponin-I HS 7 pg/mL (3.0-54.0)
[2021-12-01 07:21] LABS: Mucous, Urine 0 SEEN /hpf (<or=2+); Red Blood Cells-Urine 0 SEEN /hpf (0-5)
[2021-12-01 07:43] LABS: Color, Urine Yellow (Yellow); Glucose, Dipstick Normal (Normal); Ketone-Dipstick Negative (Negative); Leukocyte Esterase-Dipstick 25 /ul (Negative); Nitrite-Dipstick Negative (Negative); Occult Blood-Urine Negative /ul (Negative); Protein-Dipstick Negative (Negative); Urine Bilirubin Dipstick Negative (Negative); Urine Clarity Sl. Cloudy (Clear); Urine Urobilinogen 1 mg/dl (Normal)
--- NOTE | 2021-12-01 07:45 | CT_ITS ---
STUDY: CT ABDOMEN AND PELVIS WITH CONTRAST REASON FOR EXAM: Female, 70 years old. Pancreatitis. Patient presents with lower abdominal pain for one day. Recent colonoscopy. RADIATION DOSAGE (If Supplied By Facility): CTDIvol = ( 15.82 ) mGy, DLP = ( 738.66 ) mGycm TECHNIQUE: Transaxial images were obtained from the dome of the diaphragm to the symphysis pubis without oral contrast. IV 100mL Isovue-370 was administered. Sagittal and coronal images were reconstructed. Individualized dose optimization techniques were used for this CT. COMPARISON: Comparison is made with prior study dated 10/10/2021. FINDINGS: Mild degree of increased linear markings at the lung bases suggestive of a bibasilar atelectasis. Coronary artery calcification. There is decreased attenuation of the liver consistent with steatosis. Mild degree of intrahepatic biliary ductal dilatation. There are surgical clips in the gallbladder fossa consistent with a prior cholecystectomy. The common bile duct is dilated proximally measuring 1.6 cm. It tapers down to 9.5 mm in the region of the head of the pancreas. Normal spleen. Normal pancreas. Normal bilateral adrenal glands. Normal right kidney. Normal left kidney. Normal visualized stomach. Normal small intestine. There are multiple colonic diverticula consistent with diverticulosis. The appendix is visualized and appears normal. There is scattered atherosclerotic calcification of the abdominal aorta, without a demonstrated aneurysm. Normal inferior vena cava. There is borderline retroperitoneal lymphadenopathy with enlarged nodes no greater than 10mm in the short axis diameter. Normal urinary bladder. Calcified fibroid uterus. Normal abdominal wall. There are degenerative changes of the visualized lumbar spine. Grade 1 anterior listhesis of L4 on L5. CT/Abdomen/Pelvis W IV Cont ONLY IMPRESSION: Status post cholecystectomy with a dilated common bile duct. Sigmoid diverticulosis. Stable examination. Electronically Signed: Andrew Yee MD at 8:29 EDT ,
[2021-12-01 07:50] LABS: Bacteria 1+ /hpf (None Seen); Squamous Epithelial Cells - UA 0-5 SEEN /hpf (5-10); White Blood Cells 0-5 SEEN /hpf (0-5)
[2021-12-01] MEDS: 0.9% Normal Saline 1,000 ML 150 ML IV ×2 (07:58→18:12)
[2021-12-01] MEDS: HYDROmorphone 1 MG/ML Syringe IV (07:59)
[2021-12-01 08:01] VITALS: BP 135/75; PULSE 65; RESP 14; O2SAT 98
[2021-12-01 08:36] VITALS: BP 116/71; PULSE 61; RESP 14; TEMP 36.1; O2SAT 98
--- NOTE | 2021-12-01 08:41 | EX.ED.DYSGE1 ---
HPI History of Present Illness Chief Complaint: Abd Pain Narrative Narrative: Patient is a 70-year-old female with past medical history of CAD hypertension and hyperlipidemia. She states she has been having recurrent abdominal pain for 1 to 2 months. She reports she has had a CT scan which did not reveal any obvious findings and EGD which did not show any obvious cause of her symptoms as well. She has been taking the medication as prescribed to help with her recurrent pain but last night around 10 PM developed sharp pain in the right to mid epigastric region. She states has been nausea associated with this. She reports the pain is persisted throughout the entire evening secondary to this she comes in for evaluation. Otherwise she denies any chest pain shortness of breath fevers chills or dysuria [facility] Medical History Anemia Arthritis Cardiology follow-up encounter Chest pain Chest pain Easy bruising Gastric reflux High cholesterol History of echocardiogram History of Holter monitoring History of irregular heartbeat History of stress test Multiple premature ventricular complexes Nonobstructive atherosclerosis of coronary artery Normal stress echocardiogram Post-menopausal Syncope Wears glasses Home Medications multivitamin with folic acid 400 mcg tablet 1 tab PO DAILY vitamin 07/20/13 [History Last Taken 05/27/19] cholecalciferol (vitamin D3) 50 mcg (2,000 unit) capsule 1,000 unit PO DAILY 05/28/19 [History Last Taken 05/27/19] calcium citrate 200 mg calcium-vitamin D3 3.125 mcg (125 unit) tablet 1 tab PO DAILY 06/23/19 [History Last Taken Unknown] atorvastatin 40 mg tablet 40 mg PO QHS #90 tabs 05/22/21 [Rx Last Taken Unknown] omeprazole 40 mg capsule,delayed release 20 mg PO BID 05/22/21 [History Last Taken Unknown] amiodarone 200 mg tablet 100 mg PO DAILY 11/01/21 [History Last Taken Unknown] sucralfate 1 gram tablet (Carafate) 1 g PO BID #60 tabs 11/21/21 [Rx Last Taken Unknown] Allergy/AdvReac Type Severity Reaction Status Date / Time No Known Allergies Allergy Verified 12/01/21 05:17 Family History Mother Heart disease Father Heart disease Surgical History Cholecystectomy planned H/O section H/O tubal ligation History of cardiac catheterization History of cholecystectomy History of hand surgery History of left heart catheterization (05/30/19) Hx of colonoscopy S/P cataract extraction S/P tonsillectomy Social History household members: spouse number of children: 3 current occupational status: employed and retired current occupation: [employer] history of recent travel: Yes Smoking Status: Never smoker alcohol intake: current alcohol intake frequency: holidays/special occasions only substance use type: does not use well-balanced diet: daily or most days what type of physical activity do you participate in: walking frequency: 3-4 times per week seatbelt use: always do you feel safe at home: Yes additional social history: - [facility] ROS ED Constitutional Constitutional ED: Denies chills or fever(s) ENT ENT ED: Denies sore throat Cardiovascular Cardiovascular: Denies chest pain Respiratory/Chest Respiratory/Chest: Denies cough or dyspnea Gastrointestinal Gastrointestinal: Reports abdominal pain and nausea; Denies diarrhea or vomiting Genitourinary Genitourinary ED: Denies dysuria or hematuria Musculoskeletal Musculoskeletal: Denies back pain or myalgias Integumentary Denies rash Neurologic Neurologic: Denies headache(s) Hematologic/Lymphatic Hematologic/Lymphatic: Denies easy bleeding or easy bruising EXAM Physical Exam Const Vital Signs: 12/01/21 05:15 12/01/21 08:01 12/01/21 08:36 Temperature 96.6 F L 97.0 F L Temperature Source Temporal Temporal Pulse Rate 74 65 61 Respiratory Rate 16 14 14 Blood Pressure 149/73 H 135/75 H 116/71 Blood Pressure Mean 98 95 86 Pulse Ox 98 98 98 Oxygen Delivery Method Room Air Room Air Room Air Positive well nourished and well developed General Appearance ED: well developed HEENT Reports moist mucous membranes Eyes PERRL and EOMs intact bilaterally General Eye ED: Negative for scleral icterus Neck supple Resp normal respiratory effort and clear to auscultation bilaterally Cardio regular rate and regular rhythm Rate: other Other Details: Patient has frequent ectopic beats noted but radial pulses are plus 2 out of 4 bilaterally are equal and symmetric GI non-distended GI Narrative: Abdomen soft and nondistended with pain with palpation in the right and midepigastric region. The pain is greatest in the midepigastric region and there is slight voluntary guarding at the site. No rigidity noted. No pulsatile mass Auscultation: normoactive bowel sounds Palpation: soft Back/Spine no CVA tenderness Extremity normal to inspection Neuro oriented x3 and CN's II-XII intact bilaterally Sensorium / Orientation: alert Motor Exam: strength 5/5 throughout Psych mental status grossly normal Skin no rashes or lesions noted General Skin Exam: Negative for jaundice MDM MDM MDM Narrative Medical decision making narrative: Patient presented to the ER afebrile with stable vitals. She reported a recurrent history of abdominal pain and chart review revealed that she had a CT scan 6 weeks ago that was normal. Therefore elected to start with basic laboratory studies. Labs revealed significant elevation to her liver enzymes from just 1 month ago and her lipase is drastically elevated at 29,000. Secondary to this a CT scan was ordered. CT scan revealed a dilated common bile duct but otherwise no obvious findings. The patient had recurrent pain despite morphine and Dilaudid. At this time based on her elevated liver enzymes and lipase I have to assume there is a stone in the common bile duct. I discussed the case with general surgery who reports that if needed they can be on consult to perform an ERCP. therefore medicine was contacted because of the acute pancreatitis with intractable pain and they agree to accept the patient at this time. Patient has remained hemodynamically stable and without fever or white count I do not feel there is need for antibiotic Lab Data Attestation: I reviewed the patient's lab results. Labs: Laboratory Results - last 24 hr 12/01/21 12/01/21 12/01/21 05:43 05:43 05:43 WBC 9.1 RBC 4.09 L Hgb 13.3 Hct 39.6 MCV 96.8 MCH 32.5 H MCHC 33.6 RDW Std Deviation 42.1 RDW Coeff of Michele 11.9 Plt Count 190 MPV 11.9 Immature Gran % (Auto) 0.300 Neut % (Auto) 75.8 H Lymph % (Auto) 15.0 L [place] % (Auto) 7.9 Eos % (Auto) 0.4 Baso % (Auto) 0.6 Absolute Neuts (auto) 6.9 Absolute Lymphs (auto) 1.36 Nucleated RBC % 0 Sodium 138 Potassium 4.4 Chloride 106 Carbon Dioxide 25.0 Anion Gap 7 BUN 17 Creatinine 0.79 Estim Creat Clear Calc 52.36 Est GFR (MDRD) Af Amer 92 Est GFR (MDRD) Non-Af 76 BUN/Creatinine Ratio 21.4 H Glucose 134 H Calcium 9.2 Total Bilirubin 1.60 H Direct Bilirubin 0.60 H AST 786 H ALT 504 H Alkaline Phosphatase 117 Troponin I High Sens 7 Total Protein 7.2 Albumin 3.7 Globulin 3.5 Lipase 09756 H Urine Color Urine Clarity Urine pH Ur Specific [place] Urine Protein Urine Glucose (UA) Urine Ketones Urine Occult Blood Urine Nitrite Urine Bilirubin Urine Urobilinogen Ur Leukocyte Esterase Urine RBC Urine WBC Ur Squamous Epith Cells Urine Bacteria Urine Mucus 12/01/21 07:10 WBC RBC Hgb Hct MCV MCH MCHC RDW Std Deviation RDW Coeff of Michele Plt Count MPV Immature Gran % (Auto) Neut % (Auto) Lymph % (Auto) [place] % (Auto) Eos % (Auto) Baso % (Auto) Absolute Neuts (auto) Absolute Lymphs (auto) Nucleated RBC % Sodium Potassium Chloride Carbon Dioxide Anion Gap BUN Creatinine Estim Creat Clear Calc Est GFR (MDRD) Af Amer Est GFR (MDRD) Non-Af BUN/Creatinine Ratio Glucose Calcium Total Bilirubin Direct Bilirubin AST ALT Alkaline Phosphatase Troponin I High Sens Total Protein Albumin Globulin Lipase Urine Color Yellow Urine Clarity Sl. Cloudy Urine pH 6.0 Ur Specific [place] 1.020 Urine Protein Negative Urine Glucose (UA) Normal Urine Ketones Negative Urine Occult Blood Negative Urine Nitrite Negative Urine Bilirubin Negative Urine Urobilinogen 1 H Ur Leukocyte Esterase 25 H Urine RBC 0 SEEN Urine WBC 0-5 SEEN Ur Squamous Epith Cells 0-5 SEEN Urine Bacteria 1+ Urine Mucus 0 SEEN Radiography Diagnostic Testing: Clinical Impression(s) from Imaging Studies Chest X-Ray 12/01/21 06:10 IMPRESSION: Degenerative changes, as described above. No demonstrated acute cardiopulmonary process. Electronically Signed: Annia Manuel MD at 6:25 EDT , Abdomen/Pelvis CT 12/01/21 07:45 IMPRESSION: Status post cholecystectomy with a dilated common bile duct. Sigmoid diverticulosis. Stable examination. Electronically Signed: Andrew Yee MD at 8:29 EDT , Chest x-ray as interpreted by the emergency medicine physician reveals no acute infiltrate pneumothorax or pleural effusion Discharge Plan Triage Chief Complaint: Abd Pain ED Provider: Nelson Echeverria Dx/Rx/DC Orders Clinical Impression: Acute pancreatitis, Multiple premature ventricular complexes, Intractable abdominal pain Prescriptions: No Action calcium citrate-vitamin D3 200-125 mg-unit tablet 1 tab PO DAILY omeprazole 40 mg capsule,delayed release(DR/EC) 20 mg PO BID atorvastatin 40 mg tablet 40 mg PO QHS Qty: 90 3RF multivitamin with folic acid 1 TABLET tablet 1 tab PO DAILY cholecalciferol (vitamin D3) 2,000 UNIT capsule 1,000 unit PO DAILY amiodarone 200 mg tablet 100 mg PO DAILY sucralfate [Carafate] 1 gram tablet 1 g PO BID Qty: 60 0RF Primary Care Provider: Shimon Potts Referrals: Shimon Potts MD [Primary Care Provider] - Disposition Disposition: Acute Care [facility]
[2021-12-01 09:58] VITALS: BMI 26.4
--- NOTE | 2021-12-01 10:27 | MRI_ITS ---
STUDY: MR CHOLANGIOPANCREATOGRAPHY (MRCP) REASON FOR EXAM: Female, 70 years old. PAIN CBD STONES PANCREATITIS Pancreatitis TECHNIQUE: Standard MRCP technique was utilized. 3-D postprocessing images were obtained. COMPARISON: 12.01.21 ct. FINDINGS: There is T2 hyperintensities of the right kidney. These are consistent for cysts. No follow up required. Gall Bladder: There are surgical clips in the gallbladder fossa consistent with a prior cholecystectomy. Cystic duct: Normal with no demonstrated fixed filling defect. Intrahepatic ducts: There is intrahepatic ductal dilation. Common hepatic duct: Normal with no demonstrated fixed filling defect, dilation or stricture. Common bile duct: There is dilation of the common bile duct. A common bile duct stone is not seen. The CBD diameter is 16 mm. Pancreatic duct: . There is diffuse enlargement of the pancreas with shweta-pancreatic edema suggesting acute pancreatitis. MRI/MRCP Abdomen without Contrast IMPRESSION: There is dilation of the common bile duct. A common bile duct stone is not seen. The CBD diameter is 16 mm. Cholecystectomy There is acute pancreatitis. Electronically Signed: Jim Morgan MD at 19:56 EDT ,
--- NOTE | 2021-12-01 10:28 | HP.PCM.HOS_ITS ---
HPI - General General Date of Admission: 12/01/21 HPI Narrative DEVANG YOUSSEF, is a 70 F who presents to the hospital with severe epigastric abdominal pain. She is status postcholecystectomy but has been having this pain intermittently for 1 to 2 months. She recently had an EGD and colonoscopy which was unremarkable and a CT scan at the end of September which also was negative. She presents today after onset of pain last night at 10 PM. She says that this time the pain has persisted so she presented back to the ER, her lipase was 29,[address] scan does not indicate a significant pancreatitis however her common bile duct is 1.6 cm. [facility] Medical History Anemia Anxiety Arthritis Cardiology follow-up encounter Chest pain Chest pain Easy bruising Gastric reflux High cholesterol History of echocardiogram History of Holter monitoring History of irregular heartbeat History of stress test Multiple premature ventricular complexes Nonobstructive atherosclerosis of coronary artery Normal stress echocardiogram Post-menopausal Syncope Wears glasses Home Medications multivitamin with folic acid 400 mcg tablet 1 tab PO DAILY vitamin 07/20/13 [History Last Taken 11/30/21] cholecalciferol (vitamin D3) 50 mcg (2,000 unit) capsule 1,000 unit PO DAILY supplement 05/28/19 [History Last Taken 11/30/21] calcium citrate 200 mg calcium-vitamin D3 3.125 mcg (125 unit) tablet 1 tab PO DAILY supplement 06/23/19 [History Last Taken 11/30/21] omeprazole 40 mg capsule,delayed release 20 mg PO BID stomach 05/22/21 [History Last Taken 11/30/21] amiodarone 200 mg tablet 100 mg PO DAILY heart 11/01/21 [History Last Taken 11/30/21] sucralfate 1 gram tablet (Carafate) 1 g PO BID #60 tabs 11/21/21 [Rx Last Taken 11/30/21] atorvastatin 40 mg tablet 40 mg PO QHS chol 12/01/21 [History Last Taken 11/30/21] Allergy/AdvReac Type Severity Reaction Status Date / Time No Known Allergies Allergy Verified 12/01/21 05:17 Family History Mother Heart disease Father Heart disease Surgical History Cholecystectomy planned H/O section H/O tubal ligation History of cardiac catheterization History of cholecystectomy History of hand surgery History of left heart catheterization (05/30/19) Hx of colonoscopy S/P cataract extraction S/P tonsillectomy Social History household members: spouse number of children: 3 current occupational status: employed and retired current occupation: [employer] history of recent travel: Yes Smoking Status: Never smoker alcohol intake: current alcohol intake frequency: holidays/special occasions only substance use type: does not use well-balanced diet: daily or most days what type of physical activity do you participate in: walking frequency: 3-4 times per week seatbelt use: always do you feel safe at home: Yes additional social history: - Dejon ROS Constitutional Constitutional: Denies chills, fatigue, fever(s) or malaise Eyes Eyes: Denies blurry vision ENT HEENT: Denies headache(s) or nasal discharge Cardiovascular Cardiovascular: Denies chest pain, dyspnea on exertion or syncope Respiratory/Chest Respiratory/Chest: Denies cough, shortness of breath at rest or shortness of breath with exertion Gastrointestinal Gastrointestinal: Reports abdominal pain, nausea and vomiting; Denies constipation or diarrhea Genitourinary Genitourinary: Denies dysuria Neurologic Neurologic: Denies focal weakness, numbness or tremor(s) Psychiatric Psychiatric: Denies anxiety or depression Vital Signs Vital Signs Vital Signs: 12/01/21 05:15 12/01/21 08:01 12/01/21 08:36 Temperature 96.6 F L 97.0 F L Temperature Source Temporal Temporal Pulse Rate 74 65 61 Respiratory Rate 16 14 14 Blood Pressure 149/73 H 135/75 H 116/71 Blood Pressure Mean 98 95 86 Pulse Ox 98 98 98 Oxygen Delivery Method Room Air Room Air Room Air Weight Weight: 169 lb Body Mass Index (BMI) 26.4 Physical Exam Narrative General: Alert, Oriented x3, Cooperative, No apparent distress HEENT: Atraumatic, PERRLA, EOMI, Normocephalic Oral: Moist Mucosa Neck: Supple, No JVD Lungs: Clear to auscultation, Normal air movement, No rhonchi, No wheeze, No rales Cardiovascular: Regular rate, Regular Rhythm, Normal S1, Normal S2, No murmurs Abdomen: Soft, epigastric tender, Non-Distended, No Hepato-splenomegaly Extremities: No edema, Capillary Refill Less than 3 Seconds Skin: No rashes, No breakdown Musculoskeletal: No Tenderness to Palpation of Joints or Extremities Neurological: Cranial nerves II-XII grossly intact, Motor Exam 5/5 strength throughout, Sensory exam intact to light touch and pain Psych/Mental Status: Normal Affect, Appropriate Results Lab / Micro Data Result Diagrams: 12/02/21 05:03 12/02/21 05:03 Labs: Laboratory Results - last 24 hr 12/01/21 05:43: WBC 9.1, RBC 4.09 L, Hgb 13.3, Hct 39.6, MCV 96.8, MCH 32.5 H, MCHC 33.6, RDW Std Deviation 42.1, RDW Coeff of Michele 11.9, Plt Count 190, MPV 11.9, Immature Gran % (Auto) 0.300, Neut % (Auto) 75.8 H, Lymph % (Auto) 15.0 L, [place] % (Auto) 7.9, Eos % (Auto) 0.4, Baso % (Auto) 0.6, Absolute Neuts (auto) 6.9, Absolute Lymphs (auto) 1.36, Nucleated RBC % 0 12/01/21 05:43: Sodium 138, Potassium 4.4, Chloride 106, Carbon Dioxide 25.0, Anion Gap 7, BUN 17, Creatinine 0.79, Estim Creat Clear Calc 52.36, Est GFR (MDRD) Af Amer 92, Est GFR (MDRD) Non-Af 76, BUN/Creatinine Ratio 21.4 H, Glucose 134 H, Calcium 9.2, Total Bilirubin 1.60 H, Direct Bilirubin 0.60 H, AST 786 H, ALT 504 H, Alkaline Phosphatase 117, Total Protein 7.2, Albumin 3.7, Globulin 3.5, Lipase 65234 H 12/01/21 05:43: Troponin I High Sens 7 12/01/21 07:10: Urine Color Yellow, Urine Clarity Sl. Cloudy, Urine pH 6.0, Ur Specific [place] 1.020, Urine Protein Negative, Urine Glucose (UA) Normal, Urine Ketones Negative, Urine Occult Blood Negative, Urine Nitrite Negative, Urine Bilirubin Negative, Urine Urobilinogen 1 H, Ur Leukocyte Esterase 25 H, Urine RBC 0 SEEN, Urine WBC 0-5 SEEN, Ur Squamous Epith Cells 0-5 SEEN, Urine Bacteria 1+, Urine Mucus 0 SEEN Radiology Impression Chest X-Ray 12/01/21 06:10 IMPRESSION: Degenerative changes, as described above. No demonstrated acute cardiopulmonary process. Electronically Signed: Annia Manuel MD at 6:25 EDT , Abdomen/Pelvis CT 12/01/21 07:45 IMPRESSION: Status post cholecystectomy with a dilated common bile duct. Sigmoid diverticulosis. Stable examination. Electronically Signed: Andrew Yee MD at 8:29 EDT , Assessment & Plan Assessment/Plan (1) Acute pancreatitis: PLAN: Plan 1. Acute pancreatitis ? We will obtain an MRCP given her dilated common bile duct on CT scan ? IV fluids and n.p.o. ? Resume her home home amiodarone ? IV pain meds 2. History of PVCs ? Continue with amiodarone ? Not she did have a Holter monitor in the past that showed that 13% of PVC c omplexes that did not improve with metoprolol 3. GERD ? Stable ? Continue with PPI and Carafate DVT: SCDs Charges/Coding Visit Charges Inpatient E&M: 32791 Init Hosp L2
[2021-12-01 10:29] VITALS: BP 137/70; PULSE 62; RESP 18; TEMP 36.6; O2SAT 96
[2021-12-01] MEDS: 0.9% Normal Saline 1,000 ML 100 ML IV (10:29)
[2021-12-01] MEDS: Pantoprazole Sodium 20 MG Tablet PO ×2 (10:34→23:04)
[2021-12-01] MEDS: Amiodarone 200 MG Tablet 100 MG PO (10:34)
[2021-12-01] MEDS: proCHLORPERazine 10 MG/2 ML Vial 5 MG IV ×2 (12:09→20:32)
[2021-12-01] MEDS: 0.9% Saline Lock 10 ML Syringe IV ×2 (15:46→20:33)
[2021-12-01 16:15] VITALS: BP 133/64; PULSE 63; RESP 18; TEMP 36.7; O2SAT 92
[2021-12-01 22:15] VITALS: BP 128/64; PULSE 72; RESP 18; TEMP 36.6; O2SAT 94
[2021-12-02] VITALS (10 sets, daily range): BP systolic 103–119; BP diastolic 48–65; PULSE 69–80; RESP 16–18; TEMP 36.4–37.7; O2SAT 93–95; BMI 26.4
[2021-12-02] MEDS: 0.9% Normal Saline 1,000 ML 150 ML IV ×4 (00:55→18:46)
[2021-12-02 05:29] LABS: Absolute Lymphocyte Count 1.06 X10^3/uL (0.83-4.51); Absolute Neutrophil Count 21.9 X10^3/uL (2.0-7.7); Basophil# 0.04 X10^3/uL; Basophil% 0.2 % (0-1); Eosinophil# 0.01 X10^3/uL; Hematocrit 36.9 % (37-47); Hemoglobin 12.1 g/dL (12.0-15.0); Lymphocyte # 1.06 X10^3/ul (0.83-4.51); Lymphocyte % 4.2 % (19-41); Mean Corp Hgb Conc 32.8 g/dL (32-36); Mean Corpuscular Hgb 32.3 pg (27.0-32.0); Mean Corpuscular Volume 98.4 fL (81-99); Mean Platelet Vol. 11.6 fl (6.2-12.0); Monocyte# 1.79 X10^3/uL; Monocyte% 7.2 % (0-10); NRBC Flagged by Analyzer 0 % (0-5); Neutrophil # 21.93 X10^3/uL (2.7-7.7); Neutrophil % 87.7 % (47-70); POSITIVE DIFFERENTIAL YES; Platelet Count 213 K/mm3 (150-450); RBC Distribution Width CV 11.9 % (11.6-14.6); RBC Distribution Width SD 43.2 fl (35.1-43.9); Red Blood Count 3.75 M/mm3 (4.2-5.4)
[2021-12-02 05:31] LABS: Differential Indicated SCAN CRITERIA MET
[2021-12-02 05:48] LABS: AST(SGOT) 313 U/L (15-37); Alanine Aminotransfer ALT/SGPT 542 U/L (13-56); Alkaline Phosphatase 163 U/L (45-117); Anion Gap 11 (5-15); BUN 7 mg/dL (7-18); BUN/Creat Ratio 12.5 RATIO (10-20); Calcium,Total 8.5 mg/dL (8.5-10.1); Chloride 108 mmol/L (98-107); Creatinine, Serum 0.56 mg/dL (0.55-1.02); EST Glomerular Filtration Rate 114 mL/min (>60); Est Glom Filt Rate - Afr Amer 138 mL/min (>60); Estimated Creatinine Clearance 52.36 ml/min; Globulin 2.9 g/dL (2.2-4.2); Glucose 101 mg/dL (74-106); Potassium 3.4 mmol/L (3.5-5.1); Protein, Total 5.9 g/dL (6.4-8.2); Sodium Level 141 mmol/L (136-145)
[2021-12-02 06:04] LABS: Differential Comment SCANNED
[2021-12-02] MEDS: Sucralfate 1 GM Tablet PO ×2 (06:53→16:58)
[2021-12-02 07:17] LABS: Lipase 6536 U/L (73-393)
--- NOTE | 2021-12-02 07:54 | EX.PCM.CON.S ---
Assessment & Plan Assessment/Plan (1) Dilated bile duct: PLAN: The patient had pancreatitis yesterday with lipase over 25,000 which has decreased to just over 6000 today. Patient is feeling improved today but she is still feeling under the weather. She is still describing some epigastric pain although it is improved. The patient's white count increased today which may be due to biliary obstruction or from the pancreatitis. Patient had MRCP yesterday which showed a dilated common duct but no obvious filling defect. Patient's LFTs have increased today. I recommended ERCP with possible stent for relief of the obstruction and investigation for the etiology. I discussed this procedure with the patient in detail. I discussed the procedure as well as the risks including but not limited to bleeding, infection, perforation of the bile duct or bowel, pancreatitis worsening. Patient understands the risks and is willing to proceed. I will have the patient on for ERCP later today. Fabián Vital MD Pager: [facility] [address] [place] [address], [address] [place] [address] Office: HPI Consult Data Date of Consult: 12/02/21 HPI Narrative HPI Narrative: DEVANG YOUSSEF, is a 70 F who presents with abdominal pain. Patient said that the pain started in the evening 2 days ago and yesterday morning she came to the emergency room when it did not improve. She does report nausea and vomiting. She said the pain is in the epigastric area. She has had this pain in the past before. She has had laparoscopic cholecystectomy in the past. [facility] Medical History (Updated 12/02/21 @ 07:[address] Fabián Vital MD) Anemia Anxiety Arthritis Cardiology follow-up encounter Chest pain Chest pain Easy bruising Gastric reflux High cholesterol History of echocardiogram History of Holter monitoring History of irregular heartbeat History of stress test Multiple premature ventricular complexes Nonobstructive atherosclerosis of coronary artery Normal stress echocardiogram Post-menopausal Syncope Wears glasses Home Medications multivitamin with folic acid 400 mcg tablet 1 tab PO DAILY vitamin 07/20/13 [History Last Taken 11/30/21] cholecalciferol (vitamin D3) 50 mcg (2,000 unit) capsule 1,000 unit PO DAILY supplement 05/28/19 [History Last Taken 11/30/21] calcium citrate 200 mg calcium-vitamin D3 3.125 mcg (125 unit) tablet 1 tab PO DAILY supplement 06/23/19 [History Last Taken 11/30/21] omeprazole 40 mg capsule,delayed release 20 mg PO BID stomach 05/22/21 [History Last Taken 11/30/21] amiodarone 200 mg tablet 100 mg PO DAILY heart 11/01/21 [History Last Taken 11/30/21] sucralfate 1 gram tablet (Carafate) 1 g PO BID #60 tabs 11/21/21 [Rx Last Taken 11/30/21] atorvastatin 40 mg tablet 40 mg PO QHS chol 12/01/21 [History Last Taken 11/30/21] Allergy/AdvReac Type Severity Reaction Status Date / Time No Known Allergies Allergy Verified 12/01/21 05:17 Family History Mother Heart disease Father Heart disease Surgical History Cholecystectomy planned H/O section H/O tubal ligation History of cardiac catheterization History of cholecystectomy History of hand surgery History of left heart catheterization (05/30/19) Hx of colonoscopy S/P cataract extraction S/P tonsillectomy Social History household members: spouse number of children: 3 current occupational status: employed and retired current occupation: [employer] history of recent travel: Yes Smoking Status: Never smoker alcohol intake: current alcohol intake frequency: holidays/special occasions only substance use type: does not use well-balanced diet: daily or most days what type of physical activity do you participate in: walking frequency: 3-4 times per week seatbelt use: always do you feel safe at home: Yes additional social history: - Dejon ROS Constitutional Constitutional: Denies anorexia, fatigue or fever(s) Eyes Eyes: Denies blurry vision ENT HEENT: Denies abnormal hearing Cardiovascular Cardiovascular: Denies chest pain Respiratory/Chest Respiratory/Chest: Denies cough or dyspnea Gastrointestinal Gastrointestinal: Reports abdominal pain, nausea and vomiting; Denies constipation, diarrhea or rectal bleeding Genitourinary Genitourinary: Denies change in urinary stream Musculoskeletal Musculoskeletal: Denies abnormal gait Integumentary Integumentary: Denies jaundice or new lesions Neurologic Neurologic: Denies dizziness Psychiatric Psychiatric: Denies anxiety Endocrine Endocrinology: Denies flushing Hematologic/Lymphatic Hematologic/Lymphatic: Denies easy bleeding Physical Exam Const alert and oriented x3 General Appearance: cooperative HEENT normocephalic Eyes PERRL Resp normal respiratory effort GI soft to palpation Palpation: tender epigastric Lab / Micro Data Result Diagrams: 12/02/21 05:03 12/02/21 05:03 Labs: Laboratory Results - last 24 hr 12/02/21 05:03: WBC 25.0 H, RBC 3.75 L, Hgb 12.1, Hct 36.9 L, MCV 98.4, MCH 32.3 H, MCHC 32.8, RDW Std Deviation 43.2, RDW Coeff of Michele 11.9, Plt Count 213, MPV 11.6, Immature Gran % (Auto) 0.700, Neut % (Auto) 87.7 H, Lymph % (Auto) 4.2 L, [place] % (Auto) 7.2, Eos % (Auto) 0.0, Baso % (Auto) 0.2, Absolute Neuts (auto) 21.9 H, Absolute Lymphs (auto) 1.06, Nucleated RBC % 0, Differential Comment SCANNED, Diff Path Review July12/02/21 05:03: Sodium 141, Potassium 3.4 L, Chloride 108 H, Carbon Dioxide 22.0, Anion Gap 11, BUN 7, Creatinine 0.56, Estim Creat Clear Calc 52.36, Est GFR (MDRD) Af Amer 138, Est GFR (MDRD) Non-Af 114, BUN/Creatinine Ratio 12.5, Glucose 101, Calcium 8.5, Total Bilirubin 4.40 H, AST 313 H, ALT 542 H, Alkaline Phosphatase 163 H, Total Protein 5.9 L, Albumin 3.0 L, Globulin 2.9, Albumin/Globulin Ratio 1.0 12/02/21 05:03: Lipase 6536 H Radiology Impression Abdomen/Pelvis CT 12/01/21 07:45 IMPRESSION: Status post cholecystectomy with a dilated common bile duct. Sigmoid diverticulosis. Stable examination. Electronically Signed: Andrew Yee MD at 8:29 EDT , MRCP 12/01/21 10:27 IMPRESSION: There is dilation of the common bile duct. A common bile duct stone is not seen. The CBD diameter is 16 mm. Cholecystectomy There is acute pancreatitis. Electronically Signed: Jim Morgan MD at 19:56 EDT ,
--- NOTE | 2021-12-02 08:01 | EKG12_ITS ---
Test Reason : PRE OP Blood Pressure : / mmHG Vent. Rate : 072 BPM Atrial Rate : 072 BPM P-R Int : 170 ms QRS Dur : 118 ms QT Int : 410 ms P-R-T Axes : 062 022 029 degrees QTc Int : 448 ms Sinus rhythm with Premature supraventricular complexes Incomplete right bundle branch block Confirmed by ELIUD LUO, ROSEANNE ([id number]), material expeditor TEOFILO ASCENCIO ([id number]) on 12/03/2021 8:42:59 AM Referred By: CRAIG Confirmed By:ROSEANNE KLINE MD
--- NOTE | 2021-12-02 09:35 | CASEMGMT ---
RN CM attempted to complete assessment at this time. Patient is out of the room at a procedure. RN CM will attempt again at later time.
--- NOTE | 2021-12-02 10:23 | RAD_ITS ---
STUDY: ERCP. REASON FOR EXAM: Female, 70 years old. ABDOMEN PAIN FLUOROSCOPY TIME (if supplied): ( 3 seconds ) minutes/seconds. One image was submitted. TECHNIQUE: Attempted ERCP. COMPARISON: None. FINDINGS: Attempted ERCP. RAD/ERCP Biliary/Pancreas IMPRESSION: Attempted ERCP. Electronically Signed: Andrew Yee MD at 12:11 EDT ,
--- NOTE | 2021-12-02 11:02 | PCM.OPRPT ---
Report of Operation Date of Procedure: 12/02/21 Pre-Operative Diagnosis: Obstructive jaundice Post-Operative Diagnosis: Ascending cholangitis Surgery/Procedure Performed:: Attempted ERCP Description of Procedure: Patient was brought back to the operating room and general anesthesia was induced. Patient was placed in prone position and a well-lubricated ERCP scope was placed into the mouth and down into the stomach and into the duodenum. The ampulla appeared to be retracted within a small diverticulum. I was unable to identify or visualize the ampulla but there was purulent material and bile flowing from the small diverticulum. I was unable to cannulate the duct. There was copious amounts of bile and purulence both in the small bowel and the stomach. At this point the procedure was aborted and the scope was removed. Patient will need transfer to a center for rendezvous technique a 4 ERCP and stent placement. Admit VTE Documentation VTE Mechan Device Prophylaxis: SCD's
--- NOTE | 2021-12-02 11:03 | PCM.PN.BLA ---
Progress Note I attempted ERCP on the patient. The ampulla was retracted into a very small mouth diverticulum which was unable to be visualized. The diverticulum was very small and very deep and coming from it there was copious amounts of bile and purulent material. The patient likely has ascending cholangitis. She may have passed the stone that was obstructing and is now passing all of the purulent material and bile but still uncertain as to the etiology for sure. At this point the procedure was aborted. The patient should continue antibiotics and recheck LFTs in the morning. It may be that she is decompressing and with antibiotics her cholangitis will resolve but likely she will need transfer to a tertiary center that can perform a wire rendezvous ERCP with stent placement to ensure good drainage of the bile duct and resolution of the ascending cholangitis. Fabián Vital MD Pager: [facility] [address] [place] [address] [address] [place] [address] Office:
[2021-12-02] MEDS: Pantoprazole Sodium 20 MG Tablet PO ×2 (12:01→21:27)
[2021-12-02] MEDS: Amiodarone 200 MG Tablet 100 MG PO (12:02)
--- NOTE | 2021-12-02 13:32 | CASEMGMT ---
Social Work Pt is currently unavailable. STEPHAN spoke with pt and daughter who confirm pt has a living will and health care POA. SW updated that documents are not on file at [facility] and requested documents be brought in for scanning when able. Family voicing understanding. IVETH Garcia
--- NOTE | 2021-12-02 14:49 | PCM.PN.HOSP ---
Subjective Subjective Doing well, she was evaluated after her aborted ERCP and she states that she feels great today. Her white count did jump to 25,000 but she remains afebrile. Objective Data Objective Data Vital Signs: Vital Signs Temp Pulse Resp BP Pulse Ox O2 Del Method O2 Flow Rate 98.7 F 69 16 110/59 L 93 Room Air 2 12/02/21 13:47 12/02/21 13:47 12/02/21 13:47 12/02/21 13:47 12/02/21 13:47 12/02/21 13:47 12/02/21 04:00 Oxygen Flow Rate (L/min) 2 Oxygen Delivery Method Room Air Weight: 169 lb 1.513 oz Body Mass Index (BMI) 26.4 Intake & Output: Intake and Output for Last 24 Hours 12/01/21 12/02/21 12/03/21 03:59 03:59 03:59 Intake Total 2875.00 / 2875.00 2029.0 / 2029.0 Output Total 300 / 300 Balance 2575.00 / 2575.00 2029.0 / 2029.0 Lab / Micro Data Result Diagrams: 12/02/21 05:03 12/02/21 05:03 Labs: Laboratory Results - last 24 hr 12/02/21 05:03: WBC 25.0 H, RBC 3.75 L, Hgb 12.1, Hct 36.9 L, MCV 98.4, MCH 32.3 H, MCHC 32.8, RDW Std Deviation 43.2, RDW Coeff of Michele 11.9, Plt Count 213, MPV 11.6, Immature Gran % (Auto) 0.700, Neut % (Auto) 87.7 H, Lymph % (Auto) 4.2 L, [place] % (Auto) 7.2, Eos % (Auto) 0.0, Baso % (Auto) 0.2, Absolute Neuts (auto) 21.9 H, Absolute Lymphs (auto) 1.06, Nucleated RBC % 0, Differential Comment SCANNED, Diff Path Review July12/02/21 05:03: Sodium 141, Potassium 3.4 L, Chloride 108 H, Carbon Dioxide 22.0, Anion Gap 11, BUN 7, Creatinine 0.56, Estim Creat Clear Calc 52.36, Est GFR (MDRD) Af Amer 138, Est GFR (MDRD) Non-Af 114, BUN/Creatinine Ratio 12.5, Glucose 101, Calcium 8.5, Total Bilirubin 4.40 H, AST 313 H, ALT 542 H, Alkaline Phosphatase 163 H, Total Protein 5.9 L, Albumin 3.0 L, Globulin 2.9, Albumin/Globulin Ratio 1.0 12/02/21 05:03: Lipase 6536 H Radiography Diagnostic Testing: Radiology Impression MRCP 12/01/21 10:27 IMPRESSION: There is dilation of the common bile duct. A common bile duct stone is not seen. The CBD diameter is 16 mm. Cholecystectomy There is acute pancreatitis. Electronically Signed: Jim Morgan MD at 19:56 EDT , Endo Retro Cholangiopancreatogram 12/02/21 10:23 IMPRESSION: Attempted ERCP. Electronically Signed: Andrew Yee MD at 12:11 EDT , Physical Exam Narrative General: Alert, Oriented x3, Cooperative, No apparent distress HEENT: Atraumatic, PERRLA, EOMI, Normocephalic Oral: Moist Mucosa Neck: Supple, No JVD Lungs: Clear to auscultation, Normal air movement, No rhonchi, No wheeze, No rales Cardiovascular: Regular rate, Regular Rhythm, Normal S1, Normal S2, No murmurs Abdomen: Soft, minimal epigastric tender, Non-Distended, No Hepato-splenomegaly Extremities: No edema, Capillary Refill Less than 3 Seconds Skin: No rashes, No breakdown Musculoskeletal: No Tenderness to Palpation of Joints or Extremities Neurological: Cranial nerves II-XII grossly intact, Motor Exam 5/5 strength throughout, Sensory exam intact to light touch and pain Psych/Mental Status: Normal Affect, Appropriate Assessment & Plan Assessment/Plan (1) Acute pancreatitis: PLAN: Plan 1. Acute pancreatitis with a sending cholangitis ? MRCP was obtained that did not see a common bile duct stone but did note that the common bile duct diameter was 16mm and that she had acute pancreatitis ? ERCP today was attempted but aborted because the ampulla was in a diverticulum that could not be accessed ? Continue with Unasyn given her spike in her white count and the purulent material seen on the ERCP ? IV fluids, her lipase is improved to 6000 so can start her on a full liquid diet, if she has worsening abdominal pain we will discontinue ? Resume her home home amiodarone ? IV pain meds 2. History of PVCs ? Continue with amiodarone ? Not she did have a Holter monitor in the past that showed that 13% of PVC complexes that did not improve with metoprolol 3. GERD ? Stable ? Continue with PPI and Carafate DVT: SCDs Charges/Coding Visit Charges Inpatient E&M: 50710 Subs Hosp L2
--- NOTE | 2021-12-02 15:27 | CASEMGMT ---
ANGIE CM notified that pt will be trf'd to outside facility.
[2021-12-03] MEDS: 0.9% Normal Saline 1,000 ML 150 ML IV ×3 (02:07→18:38)
[2021-12-03] MEDS: Ketorolac 15 MG/ML Vial IV ×2 (03:10→22:32)
[2021-12-03] MEDS: 0.9% Saline Lock 10 ML Syringe IV (03:11)
[2021-12-03 03:32] VITALS: BP 126/62; PULSE 73; RESP 14; TEMP 37.1; O2SAT 92
[2021-12-03 05:19] LABS: Absolute Lymphocyte Count 1.04 X10^3/uL (0.83-4.51); Absolute Neutrophil Count 14.2 X10^3/uL (2.0-7.7); Basophil# 0.02 X10^3/uL; Basophil% 0.1 % (0-1); Hematocrit 30.5 % (37-47); Hemoglobin 10.4 g/dL (12.0-15.0); Lymphocyte # 1.04 X10^3/ul (0.83-4.51); Lymphocyte % 6.3 % (19-41); Mean Corp Hgb Conc 34.1 g/dL (32-36); Mean Corpuscular Hgb 33.5 pg (27.0-32.0); Mean Corpuscular Volume 98.4 fL (81-99); Mean Platelet Vol. 10.5 fl (6.2-12.0); Monocyte# 1.26 X10^3/uL; Monocyte% 7.6 % (0-10); NRBC Flagged by Analyzer 0 % (0-5); Neutrophil % 85.5 % (47-70); Platelet Count 180 K/mm3 (150-450); RBC Distribution Width CV 12.3 % (11.6-14.6); RBC Distribution Width SD 44.3 fl (35.1-43.9); White Blood Count 16.6 K/mm3 (4.4-11.0)
[2021-12-03 05:44] LABS: ALB/GLOB Ratio 0.8 RATIO (0.9-2.4); AST(SGOT) 92 U/L (15-37); Alanine Aminotransfer ALT/SGPT 289 U/L (13-56); Albumin, Serum 2.4 g/dL (3.2-5.0); Alkaline Phosphatase 115 U/L (45-117); Anion Gap 8 (5-15); BUN 12 mg/dL (7-18); BUN/Creat Ratio 23.8 RATIO (10-20); Chloride 112 mmol/L (98-107); EST Glomerular Filtration Rate 129 mL/min (>60); Est Glom Filt Rate - Afr Amer 156 mL/min (>60); Estimated Creatinine Clearance 52.36 ml/min; Glucose 113 mg/dL (74-106); Potassium 3.3 mmol/L (3.5-5.1); Protein, Total 5.4 g/dL (6.4-8.2); Sodium Level 142 mmol/L (136-145)
[2021-12-03] MEDS: Sucralfate 1 GM Tablet PO (06:09)
[2021-12-03 08:17] VITALS: BP 141/64; PULSE 71; RESP 16; TEMP 36.8; O2SAT 92
--- NOTE | 2021-12-03 09:03 | PN.HOSP_ITS ---
Subjective Subjective Doing well today, pain is resolved. She was tolerating a full liquid diet yesterday without any significant abdominal issues Objective Data Objective Data Vital Signs: Vital Signs Temp Pulse Resp BP Pulse Ox O2 Del Method O2 Flow Rate 98.2 F 71 16 141/64 H 92 Room Air 2 12/03/21 08:17 12/03/21 08:17 12/03/21 08:17 12/03/21 08:17 12/03/21 08:17 12/03/21 08:17 12/02/21 04:00 Oxygen Flow Rate (L/min) 2 Oxygen Delivery Method Room Air Weight: 169 lb 1.513 oz Body Mass Index (BMI) 26.4 Intake & Output: Intake and Output for Last 24 Hours 12/02/21 12/03/21 12/04/21 03:59 03:59 03:59 Intake Total 2875.00 / 2875.00 4081.0 / 4081.0 112 / 112 Output Total 300 / 300 Balance 2575.00 / 2575.00 4081.0 / 4081.0 112 / 112 Lab / Micro Data Result Diagrams: 12/03/21 05:07 12/03/21 05:07 Labs: Laboratory Results - last 24 hr 12/03/21 05:07: WBC 16.6 H, RBC 3.10 L, Hgb 10.4 L, Hct 30.5 L, MCV 98.4, MCH 33.5 H, MCHC 34.1, RDW Std Deviation 44.3 H, RDW Coeff of Michele 12.3, Plt Count 180, MPV 10.5, Immature Gran % (Auto) 0.500, Neut % (Auto) 85.5 H, Lymph % (Auto) 6.3 L, Bledsoe % (Auto) 7.6, Eos % (Auto) 0.0, Baso % (Auto) 0.1, Absolute Neuts (auto) 14.2 H, Absolute Lymphs (auto) 1.04, Nucleated RBC % 0 12/03/21 05:07: Sodium 142, Potassium 3.3 L, Chloride 112 H, Carbon Dioxide 22.0, Anion Gap 8, BUN 12, Creatinine 0.50 L, Estim Creat Clear Calc 52.36, Est GFR (MDRD) Af Amer 156, Est GFR (MDRD) Non-Af 129, BUN/Creatinine Ratio 23.8 H, Glucose 113 H, Calcium 8.0 L, Total Bilirubin 0.90, AST 92 H, ALT 289 H, Alkaline Phosphatase 115, Total Protein 5.4 L, Albumin 2.4 L, Globulin 3.0, Albumin/Globulin Ratio 0.8 L Radiography Diagnostic Testing: Radiology Impression Endo Retro Cholangiopancreatogram 12/02/21 10:23 IMPRESSION: Attempted ERCP. Electronically Signed: Andrew Yee MD at 12:11 EDT , Physical Exam Narrative General: Alert, Oriented x3, Cooperative, No apparent distress HEENT: Atraumatic, PERRLA, EOMI, Normocephalic Oral: Moist Mucosa Neck: Supple, No JVD Lungs: Clear to auscultation, Normal air movement, No rhonchi, No wheeze, No rales Cardiovascular: Regular rate, Regular Rhythm, Normal S1, Normal S2, No murmurs Abdomen: Soft, nontender, Non-Distended, No Hepato-splenomegaly Extremities: No edema, Capillary Refill Less than 3 Seconds Skin: No rashes, No breakdown Musculoskeletal: No Tenderness to Palpation of Joints or Extremities Neurological: Cranial nerves II-XII grossly intact, Motor Exam 5/5 strength throughout, Sensory exam intact to light touch and pain Psych/Mental Status: Normal Affect, Appropriate Assessment & Plan Assessment/Plan (1) Acute pancreatitis: PLAN: Plan 1. Acute pancreatitis with a sending cholangitis ? MRCP was obtained that did not see a common bile duct stone but did note that the common bile duct diameter was 16mm and that she had acute pancreatitis ? ERCP was attempted but aborted because the ampulla was in a diverticulum that could not be accessed ? Continue with Unasyn given her spike in her white count and the purulent material seen on the ERCP ? IV fluids, her lipase is improved to 6000 ? Resume her home home amiodarone ? IV pain meds ? Bilirubin went from 4.4 to normal so does look like what ever was in her common bile duct was passed however I still think she would be beneficial from having this investigated further so we will continue with transfer to [facility] 2. History of PVCs ? Continue with amiodarone ? Not she did have a Holter monitor in the past that showed that 13% of PVC complexes that did not improve with metoprolol 3. GERD ? Stable ? Continue with PPI and Carafate DVT: SCDs Charges/Coding Visit Charges Inpatient E&M: 83923 Subs Hosp L2
[2021-12-03] MEDS: Potassium Chloride 10mEq/100mL 10 MEQ/100 ML IV.SOLN. 100 MEQ IV BOLUS ×4 (09:59→16:41)
[2021-12-03 11:15] VITALS: BP 141/64; PULSE 92; RESP 16; TEMP 36.8; O2SAT 92
[2021-12-03 14:00] VITALS: BP 128/69; PULSE 69; RESP 16; TEMP 36.9; O2SAT 95
--- NOTE | 2021-12-03 15:50 | NURSING ---
update on Vital signs, prn meds given to [facility] transfer center, aware no bed at this time.
[2021-12-03 17:15] VITALS: BP 128/69; PULSE 69; RESP 16; TEMP 36.9; O2SAT 95
[2021-12-03 20:00] VITALS: BP 136/75; PULSE 76; RESP 16; TEMP 37; O2SAT 95
[2021-12-03] MEDS: Pantoprazole Sodium 20 MG Tablet PO (22:20)
[2021-12-04 02:00] VITALS: BP 126/59; PULSE 67; RESP 16; TEMP 36.9; O2SAT 95
[2021-12-04] MEDS: 0.9% Normal Saline 1,000 ML 150 ML IV (02:25)
[2021-12-04 05:03] LABS: Absolute Lymphocyte Count 1.58 X10^3/uL (0.83-4.51); Absolute Neutrophil Count 8.5 X10^3/uL (2.0-7.7); Basophil# 0.04 X10^3/uL; Basophil% 0.4 % (0-1); Eosinophil# 0.02 X10^3/uL; Eosinophils% 0.2 % (0-5); Hematocrit 30.2 % (37-47); Hemoglobin 10.2 g/dL (12.0-15.0); Lymphocyte # 1.58 X10^3/ul (0.83-4.51); Lymphocyte % 14.3 % (19-41); Mean Corp Hgb Conc 33.8 g/dL (32-36); Mean Corpuscular Volume 97.7 fL (81-99); Mean Platelet Vol. 11.2 fl (6.2-12.0); Monocyte# 0.79 X10^3/uL; Monocyte% 7.2 % (0-10); NRBC Flagged by Analyzer 0 % (0-5); Neutrophil # 8.54 X10^3/uL (2.7-7.7); Neutrophil % 77.4 % (47-70); Platelet Count 193 K/mm3 (150-450); RBC Distribution Width CV 12.3 % (11.6-14.6); RBC Distribution Width SD 44.5 fl (35.1-43.9); Red Blood Count 3.09 M/mm3 (4.2-5.4)
[2021-12-04 05:32] LABS: ALB/GLOB Ratio 0.8 RATIO (0.9-2.4); AST(SGOT) 46 U/L (15-37); Alanine Aminotransfer ALT/SGPT 202 U/L (13-56); Albumin, Serum 2.5 g/dL (3.2-5.0); Alkaline Phosphatase 100 U/L (45-117); Anion Gap 8 (5-15); BUN 9 mg/dL (7-18); BUN/Creat Ratio 19.1 RATIO (10-20); Calcium,Total 7.9 mg/dL (8.5-10.1); Chloride 112 mmol/L (98-107); Creatinine, Serum 0.47 mg/dL (0.55-1.02); EST Glomerular Filtration Rate 140 mL/min (>60); Est Glom Filt Rate - Afr Amer 169 mL/min (>60); Estimated Creatinine Clearance 52.36 ml/min; Globulin 3.1 g/dL (2.2-4.2); Glucose 76 mg/dL (74-106); Potassium 3.2 mmol/L (3.5-5.1); Protein, Total 5.6 g/dL (6.4-8.2); Sodium Level 142 mmol/L (136-145)
[2021-12-04] MEDS: Ondansetron 4 MG/2 ML Vial IV (05:50)
[2021-12-04] MEDS: 0.9% Saline Lock 10 ML Syringe IV (05:50)
[2021-12-04] MEDS: Sucralfate 1 GM Tablet PO (06:43)
[2021-12-04 08:00] VITALS: BP 125/78; PULSE 72; RESP 18; TEMP 36.7; O2SAT 95
[2021-12-04] MEDS: Potassium Chloride 10mEq/100mL 10 MEQ/100 ML IV.SOLN. 100 MEQ IV BOLUS (08:35)
[2021-12-04] MEDS: Pantoprazole Sodium 20 MG Tablet PO (08:39)
[2021-12-04] MEDS: Amiodarone 200 MG Tablet 100 MG PO (08:39)
--- NOTE | 2021-12-04 09:54 | DCINST_ITS ---
Discharge Instructions Diet Discharge Diet: Low fat / Low cholesterol Activity Discharge Activity: Return to Normal Activity Dressing / Incision Call your doctor if you observe: Fever of 101 or Higher, Shortness of breath, Dizziness, Fainting spells, Swelling in the ankles, Chest pain and Increased palpitations (irregular heartbeat) Follow Up Care Test Results: Test results from this visit will be discussed in further detail at your follow- up appointment, if applicable. Discharge Plan Admission Admit Date/Time: 12/01/21 08:26 Attending Provider: Frandy Dunham Primary Care Provider: Shimon Potts Consulting Providers: Fabián Vital Discharge Orders/Prescriptions Prescriptions: New amoxicillin-pot clavulanate 875-125 mg tablet 1 tab PO BID Qty: 10 0RF ondansetron 4 mg tablet,disintegrating 4 mg PO Q8H PRN (Reason: nausea and vomiting) Qty: 14 0RF Continued calcium citrate-vitamin D3 200-125 mg-unit tablet 1 tab PO DAILY omeprazole 40 mg capsule,delayed release(DR/EC) 20 mg PO BID multivitamin with folic acid 1 TABLET tablet 1 tab PO DAILY cholecalciferol (vitamin D3) 2,000 UNIT capsule 1,000 unit PO DAILY amiodarone 200 mg tablet 100 mg PO DAILY sucralfate [Carafate] 1 gram tablet 1 g PO BID Qty: 60 0RF atorvastatin 40 mg tablet 40 mg PO QHS Referrals / Follow Up: Shimon Potts MD [Primary Care Provider] - Within 1 Week Disposition Disposition (needs filled in before D/C Order can be placed): Home, Self Care
--- NOTE | 2021-12-04 10:10 | CASEMGMT ---
RN CM Face to Face with patient for initial transition planning/care coordination assessment. RN CM introduced self and role at [facility]. Patient lying in bed, alert and oriented. Patient willing to participate in assessment and is able to answer all questions appropriately. Care providers, pharmacy, and demographics verified. Patient wishes to discharge home, denies need for home health at this time. Patient states she has no further needs or concerns at this time. CM to follow for discharge planning needs that may arise. PCP: Delroy Specialists: none Preferred Pharmacy: [facility] retail at discharge. Insurance: [employer] Prescription Benefit: yes Living Will/HPOA: yes, Mike Lee LNOK: , daughter Living Arrangements: patient lives with in a single story home with 2 steps and railing to enter the home. Patient states she is independent at home. Transportation: self, DME/HHC: Patient states she has raised toilet and grab bars at home. No previous HHC or SNF. Disposition Plan: Patient to discharge home with family support and follow-up plans in place. Karen ANAYA, RN, CM
--- NOTE | 2021-12-04 10:11 | DS.PCM_ITS ---
Providers Date of Admission: 12/01/21 Primary Care Physician: Dr. Shimon Potts MD Consultations 12/02/21 07:38 Consult: General Surgery Routine Consulting Provider: Fabián Vital Reason for Consult: ERCP EMERGENT Consult: No MD Notified: Yes Date Notified: 12/02/21 Time Notified: 07:39 Method of Notification: Verbal Reason For Visit: PANCREATITIS Diagnosis Discharge Diagnosis (1) Acute pancreatitis: Status: Acute Code(s): K85.90 - Acute pancreatitis without necrosis or infection, unspecified Plan 1. Acute pancreatitis with a sending cholangitis ? MRCP was obtained that did not see a common bile duct stone but did note that the common bile duct diameter was 16mm and that she had acute pancreatitis ? ERCP was attempted but aborted because the ampulla was in a diverticulum that could not be accessed ? Continue with Unasyn given her spike in her white count and the purulent material seen on the ERCP ? IV fluids, her lipase is improved to 6000 ? Resume her home home amiodarone ? IV pain meds ? Bilirubin went from 4.4 to normal so does look like what ever was in her common bile duct was passed however I still think she would be beneficial from having this investigated further so we will continue with transfer to [facility] 2. History of PVCs ? Continue with amiodarone ? Not she did have a Holter monitor in the past that showed that 13% of PVC complexes that did not improve with metoprolol 3. GERD ? Stable ? Continue with PPI and Carafate DVT: SCDs Medications at Discharge Home Medications multivitamin with folic acid 400 mcg tablet 1 tab PO DAILY vitamin 07/20/13 cholecalciferol (vitamin D3) 50 mcg (2,000 unit) capsule 1,000 unit PO DAILY supplement 05/28/19 calcium citrate 200 mg calcium-vitamin D3 3.125 mcg (125 unit) tablet 1 tab PO DAILY supplement 06/23/19 omeprazole 40 mg capsule,delayed release 20 mg PO BID stomach 05/22/21 amiodarone 200 mg tablet 100 mg PO DAILY heart 11/01/21 sucralfate 1 gram tablet (Carafate) 1 g PO BID #60 tabs 11/21/21 atorvastatin 40 mg tablet 40 mg PO QHS chol 12/01/21 amoxicillin 875 mg-potassium clavulanate 125 mg tablet 1 tab PO BID #10 tabs 12/04/21 ondansetron 4 mg disintegrating tablet 4 mg PO Q8H PRN nausea and vomiting #14 tabs 12/04/21 Hospital Course Operations ERCP Procedures None Summary of Care Provided Minutes Spent on Discharge: 45 Hospital Course: Per HPI: DEVANG YOUSSEF, is a 70 F who presents to the hospital with severe epigastric abdominal pain.? She is status postcholecystectomy but has been having this pain intermittently for 1 to 2 months.? She recently had an EGD and colonoscopy which was unremarkable and a CT scan at the end of September which also was negative.? She presents today after onset of pain last night at 10 PM.? She says that this time the pain has persisted so she presented back to the ER, her lipase was 29,[address] scan does not indicate a significant pancreatitis however her common bile duct is 1.6 cm. Hospital Course: 1. Acute pancreatitis with ascending cholangitis?70-year-old female presented to the hospital with right upper quadrant abdominal pain. She had this episode occur on 01 November as well but at that time she did not have any vital sign or lab abnormalities. When she presented again she was found to have a significantly dilated common bile duct at 1.6 cm, she is status post cholecystectomy. The day after her admission her white blood cell count spiked to 25,000 however her her lipase did improve at that time from 29,000-6000. An ERCP was attempted after an MRCP was obtained and did not show a stone. However the ERCP cannot be completed secondary to the ampulla being inside a diverticulum and could not be directly visualized. During her ERCP was noted that she was having bile and purulent material draining from the diverticulum and she did continue to improve. Her total bilirubin went from a peak of 4.4 down to 0.9. Her LFTs also were improving significantly. Her white count has completely resolved. I did discuss with her the plan for discharge today and she expressed understanding of the risk benefits going home and she wants to go home because she does not want to continue to wait for an outside hospital bed. She was accepted to [facility] in transfer however they have not had an available bed yet. She did asked that I call [facility] and [facility] in [place] both of whom are full and were more than happy to put her on the waiting list however she would prefer to go home today. I do recommend that she continue to eat a low fat diet, and will continue with Augmentin for 5 more days. I did discuss with her that since we are unable to do the rendezvous procedure in order to complete the ERCP, that if she were to have this abdominal pain again she should just correctly go to a tertiary care center. I also did discuss the case thoroughly with her primary care doctor so he is also aware. 2. History of PVCs and GERD are chronic medical conditions which complicate her care. Her home medications were continued where appropriate Physical Exam Narrative General: Alert, Oriented x3, Cooperative, No apparent distress HEENT: Atraumatic, PERRLA, EOMI, Normocephalic Oral: Moist Mucosa Neck: Supple, No JVD Lungs: Clear to auscultation, Normal air movement, No rhonchi, No wheeze, No rales Cardiovascular: Regular rate, Regular Rhythm, Normal S1, Normal S2, No murmurs Abdomen: Soft, nontender, Non-Distended, No Hepato-splenomegaly Extremities: No edema, Capillary Refill Less than 3 Seconds Skin: No rashes, No breakdown Musculoskeletal: No Tenderness to Palpation of Joints or Extremities Neurological: Cranial nerves II-XII grossly intact, Motor Exam 5/5 strength throughout, Sensory exam intact to light touch and pain Psych/Mental Status: Normal Affect, Appropriate Weight / BMI Weight Weight: 169 lb 1.513 oz Body Mass Index (BMI) 26.4 ABG / Lab / Microbiology Data Result Diagrams: 12/04/21 04:09 12/04/21 04:09 Laboratory: Laboratory Results - last 24 hr 12/04/21 04:09: WBC 11.0, RBC 3.09 L, Hgb 10.2 L, Hct 30.2 L, MCV 97.7, MCH 33.0 H, MCHC 33.8, RDW Std Deviation 44.5 H, RDW Coeff of Michele 12.3, Plt Count 193, MPV 11.2, Immature Gran % (Auto) 0.500, Neut % (Auto) 77.4 H, Lymph % (Auto) 14.3 L, Burleigh % (Auto) 7.2, Eos % (Auto) 0.2, Baso % (Auto) 0.4, Absolute Neuts (auto) 8.5 H, Absolute Lymphs (auto) 1.58, Nucleated RBC % 0 12/04/21 04:09: Sodium 142, Potassium 3.2 L, Chloride 112 H, Carbon Dioxide 22.0, Anion Gap 8, BUN 9, Creatinine 0.47 L, Estim Creat Clear Calc 52.36, Est GFR (MDRD) Af Amer 169, Est GFR (MDRD) Non-Af 140, BUN/Creatinine Ratio 19.1, Glucose 76, Calcium 7.9 L, Total Bilirubin 0.90, AST 46 H, ALT 202 H, Alkaline Phosphatase 100, Total Protein 5.6 L, Albumin 2.5 L, Globulin 3.1, Albumin/Globulin Ratio 0.8 L D/C Instructions Discharge Diet: Low fat / Low cholesterol Call your doctor if you observe: Fever of 101 or Higher, Shortness of breath, Dizziness, Fainting spells, Swelling in the ankles, Chest pain and Increased palpitations (irregular heartbeat) Meaningful Use Info Meaningful Use Diagnoses (Choose all that apply): None applicable Discharge Plan Admission Admit Date/Time: 12/01/21 08:26 Attending Provider: Frandy Dunham Primary Care Provider: Shimon Potts Consulting Providers: Fabián Vital Discharge Orders/Prescriptions Prescriptions: New amoxicillin-pot clavulanate 875-125 mg tablet 1 tab PO BID Qty: 10 0RF ondansetron 4 mg tablet,disintegrating 4 mg PO Q8H PRN (Reason: nausea and vomiting) Qty: 14 0RF Continued calcium citrate-vitamin D3 200-125 mg-unit tablet 1 tab PO DAILY omeprazole 40 mg capsule,delayed release(DR/EC) 20 mg PO BID multivitamin with folic acid 1 TABLET tablet 1 tab PO DAILY cholecalciferol (vitamin D3) 2,000 UNIT capsule 1,000 unit PO DAILY amiodarone 200 mg tablet 100 mg PO DAILY sucralfate [Carafate] 1 gram tablet 1 g PO BID Qty: 60 0RF atorvastatin 40 mg tablet 40 mg PO QHS Referrals / Follow Up: Shimon Potts MD [Primary Care Provider] - Within 1 Week Disposition Disposition (needs filled in before D/C Order can be placed): Home, Self Care Charges/Coding Visit Charges Inpatient E&M: 73028 Disch Hosp
[2021-12-04] MEDS: Potassium Chloride Oral Tablet 20 MEQ 40 MEQ PO (10:23)
[2021-12-04 10:24] LABS: Pathologist Review Reviewed
[2021-12-04 10:26] VITALS: BP 125/78; PULSE 72; RESP 18; TEMP 36.7; O2SAT 95
== END 2021-12-04 11:30 | disposition home or self-care (01) | DRG 439 ==
LOC: ED 08:48 → MS3 09:06
PROVIDERS: Surgery; Admitting Provider Family Medicine; Emergency Provider Emergency Medicine; PCP Family Medicine; Visit Provider Family Medicine
PROC: (CPT 43260; principal; 2021-12-02 09:40)
DX: K85.90 Acute pancreatitis without necrosis or infection, unspecified (principal); K83.09 Other cholangitis; K83.8 Other specified diseases of biliary tract; I25.10 Atherosclerotic heart disease of native coronary artery without angina pectoris; K21.9 Gastro-esophageal reflux disease without esophagitis; E78.00 Pure hypercholesterolemia, unspecified; I49.3 Ventricular premature depolarization; Z90.49 Acquired absence of other specified parts of digestive tract; Z79.899 Other long term (current) drug therapy; Z28.310 Unvaccinated for COVID-19; R74.8 Abnormal levels of other serum enzymes; I10 Essential (primary) hypertension; Z53.09 Procedure and treatment not carried out because of other contraindication
CPT/HCPCS: 43260; 00732; 36415; 71045; 74177; 74181; 74330; 76000; 80048; 80053; 80076; 81001; 83690; 84484; 85025; 93005; 96361; 96365; 96366; 96367; 96375; 96376; 99221; 99284; J7030; Q9967; A4216; G0378; J0295; J2405

== ENCOUNTER → 2021-12-05 | Outpatient (CLI) | payer OTHER, SELFPAY ==
[2021-12-05 17:42] LABS: Absolute Lymphocyte Count 1.23 X10^3/uL (0.83-4.51); Absolute Neutrophil Count 5.9 X10^3/uL (2.0-7.7); Basophil# 0.04 X10^3/uL; Basophil% 0.5 % (0-1); Eosinophils% 1.2 % (0-5); Hematocrit 35.4 % (37-47); Hemoglobin 11.7 g/dL (12.0-15.0); Lymphocyte # 1.23 X10^3/ul (0.83-4.51); Lymphocyte % 14.8 % (19-41); Mean Corp Hgb Conc 33.1 g/dL (32-36); Mean Corpuscular Hgb 32.3 pg (27.0-32.0); Mean Corpuscular Volume 97.8 fL (81-99); Monocyte# 0.93 X10^3/uL; Monocyte% 11.2 % (0-10); NRBC Flagged by Analyzer 0 % (0-5); Neutrophil # 5.94 X10^3/uL (2.7-7.7); Neutrophil % 71.6 % (47-70); Platelet Count 291 K/mm3 (150-450); RBC Distribution Width SD 43.8 fl (35.1-43.9); Red Blood Count 3.62 M/mm3 (4.2-5.4); White Blood Count 8.3 K/mm3 (4.4-11.0)
[2021-12-05 18:13] LABS: AST(SGOT) 31 U/L (15-37); Alanine Aminotransfer ALT/SGPT 159 U/L (13-56); Alkaline Phosphatase 105 U/L (45-117); Anion Gap 7 (5-15); BUN 9 mg/dL (7-18); BUN/Creat Ratio 12.5 RATIO (10-20); Calcium,Total 8.7 mg/dL (8.5-10.1); Chloride 104 mmol/L (98-107); Creatinine, Serum 0.72 mg/dL (0.55-1.02); EST Glomerular Filtration Rate 85 mL/min (>60); Est Glom Filt Rate - Afr Amer 103 mL/min (>60); Globulin 3.8 g/dL (2.2-4.2); Glucose 101 mg/dL (74-106); Lipase 1083 U/L (73-393); Potassium 3.3 mmol/L (3.5-5.1); Protein, Total 6.8 g/dL (6.4-8.2); Sodium Level 138 mmol/L (136-145)
== END | disposition home or self-care (01) ==
LOC: MFPLAB 15:55
PROVIDERS: PCP Family Medicine; Referring Provider Family Medicine; Visit Provider Family Medicine
DX: K83.09 Other cholangitis (principal); K85.90 Acute pancreatitis without necrosis or infection, unspecified
CPT/HCPCS: 36415; 80048; 80076; 83690; 85025

== ENCOUNTER → 2021-12-08 | Outpatient (CLI) | payer OTHER, SELFPAY ==
[2021-12-08 13:16] LABS: ALB/GLOB Ratio 0.8 RATIO (0.9-2.4); AST(SGOT) 41 U/L (15-37); Alanine Aminotransfer ALT/SGPT 104 U/L (13-56); Albumin, Serum 3.4 g/dL (3.2-5.0); Alkaline Phosphatase 97 U/L (45-117); Amylase 64 U/L (25-115); Anion Gap 10 (5-15); BUN 8 mg/dL (7-18); BUN/Creat Ratio 10.9 RATIO (10-20); CRP 9.94 mg/L (0.0-3.0); Calcium,Total 9.3 mg/dL (8.5-10.1); Chloride 104 mmol/L (98-107); Creatinine, Serum 0.73 mg/dL (0.55-1.02); EST Glomerular Filtration Rate 84 mL/min (>60); Est Glom Filt Rate - Afr Amer 101 mL/min (>60); Glucose 92 mg/dL (74-106); Lipase 844 U/L (73-393); Magnesium 2.2 mg/dL (1.6-2.6); Potassium 3.5 mmol/L (3.5-5.1); Protein, Total 7.4 g/dL (6.4-8.2); Sodium Level 140 mmol/L (136-145)
== END | disposition home or self-care (01) ==
LOC: MFPLAB 09:26
PROVIDERS: PCP Family Medicine; Visit Provider Family Medicine
DX: K85.90 Acute pancreatitis without necrosis or infection, unspecified (principal); K83.09 Other cholangitis
CPT/HCPCS: 36415; 80053; 82150; 83690; 83735; 86140

== ENCOUNTER → 2022-06-25 | Outpatient (CLI) | payer OTHER, SELFPAY ==
--- NOTE | 2022-06-25 14:48 | BI_ITS ---
MAMMOGRAPHY - BILATERAL SCREENING REASON FOR EXAM: Female, 71 years old. Routine annual screening examination. PERTINENT HISTORY: Mother with breast cancer. TECHNIQUE: Digital bilateral breast stephania (3D mammographic acquisition) in the CC and MLO projections. 2-D mediolateral oblique (MLO) and craniocaudad (CC) views of both breasts were obtained. CAD: Full Field Digital Mammography with Computer Added Detection was performed. COMPARISON: Comparison is made with prior study dated April 12, 2019 and March 24, 2018. FINDINGS: Breast Composition: There are scattered areas of fibroglandular density. There are no dominant masses or suspicious calcifications. Stable scattered bilateral calcifications. No focal clusters seen. No other significant abnormalities are identified. There has been no significant change since the prior study. BI/SCRN MAMM (CAD)W/STEPHANIA BILAT IMPRESSION: Stable bilateral screening mammogram. Yearly follow-up mammogram recommended. (A) ASSESSMENT CATEGORY: BIRADS Category 2: Benign. A letter regarding these results will be sent to the patient by the facility within 30 days. Approximately 10% of breast cancers are not detected by mammography. A normal mammogram should not delay biopsy of a clinically suspicious abnormality. [id number] Electronically Signed: Andrew Yee MD at 8:39 EDT ,
--- NOTE | 2022-06-25 14:49 | BD_ITS ---
STUDY: DUAL ENERGY X-RAY ABSORPTIOMETRY / DXA REASON FOR EXAM: Female, 71 years old. [id number] TECHNIQUE: Bone Mineral Density (BMD) measurements of lumbar spine and bilateral hips were obtained. COMPARISON: Comparison is made with prior study dated April 25, 2019. FINDINGS: Lumbar Spine (L1-L4): g/cm2 (0.810) / T-score (-2.2) / Z-score (-0.1) Findings are suggestive of osteopenia with a moderate fracture risk. Left Femur Total: g/cm2 (0.737) / T-score (-1.7) / Z-score (-0.2) Left Femoral Neck: g/cm2 (0.622) / T-score (-2.0) / Z-score (-0.3) Right Femur Total: g/cm2 (0.723) / T-score (-1.8) / Z-score (-0.3) Right Femoral Neck: g/cm2 (0.625) / T-score (-2.0) / Z-score (-0.2) The T-Scores on the most recent prior examination were: Lumbar Spine (L1-L4): There has been worsening of bone density since the previous examination. Left Femur Total: which represents a worsening of 2.2%. Right Femur Total: which represents a worsening of 1.4%. BD/Dexa Bone Density Study IMPRESSION: The patient is considered osteopenic as outlined below according to World Chase Organization (WHO) criteria with a high fracture risk. There has been worsening of bone density since the previous examination. Reference Information: The T-score is the number of standard deviations above or below the standard which is normal for young adults at their peak bone mineral density. The World Health Organization (WHO) interprets the T-scores as follows: Above -1 Normal bone density Between -1 and -2.5 Osteopenia Equal to / or below -2.5 Osteoporosis As a practical clinical guideline, osteopenia may be graded as follows: Mild -1 through -1.5 Moderate -1.6 through -2.0 Severe -2.1 through -2.4 The Z-score is the number of standard deviations above or below age-matched controls. A Z-score of less than -1.5 would be considered abnormal. References: 1. NIH Osteoporosis and Related Bone Diseases www osteo.org 2. International Society for Clinical Densitometry www iscd.org 3. National Osteoporosis Foundation www nof.org Electronically Signed: Andrew Yee MD at 15:13 EDT ,
== END | disposition home or self-care (01) ==
LOC: OPBD 14:36
PROVIDERS: PCP Family Medicine; Referring Provider Family Medicine; Visit Provider Family Medicine
DX: M85.80 Other specified disorders of bone density and structure, unspecified site (principal); Z78.0 Asymptomatic menopausal state; Z12.31 Encounter for screening mammogram for malignant neoplasm of breast; Z80.3 Family history of malignant neoplasm of breast
CPT/HCPCS: 77063; 77067; 77080

== ENCOUNTER → 2022-09-15 | Outpatient (CLI) | payer OTHER, SELFPAY | END | disposition home or self-care (01) | PROVIDERS: PCP Family Medicine; Visit Provider Family Medicine | DX: R35.0 Frequency of micturition (principal) | CPT/HCPCS: 87086; 87088 ==

== ENCOUNTER 2022-12-22 10:30 | Outpatient (RCR) | payer OTHER, SELFPAY ==
--- NOTE | 2022-10-16 11:01 | HP.PTEVAL_ITS ---
Patient's Visit Information Visit Information Visit Information: DEVANG YOUSSEF is a 71 year old F referred to Physical Therapy by Dr. Tressa Love MD with a diagnosis of CYSTOCELE, URINARY URGENCY AND URINARY FREQUENCY. Date of Evaluation: 10/16/22 Physical Therapist: Jacqueline Trevino PT, Cert MDT Visit Plan Frequency: 1x/Week Duration: 2-4 Months Plan: PF THERAPY FOR STRENGTHENING, LENGTHENING/RELAXATION AND ENDURANCE TRAINING. URINARY URGE AND FREQUENCY EDUCATION. HEALTHY BLADDER HABIT EDUCATION. TRAINING IN COORDINATION OF PELVIC FLOOR MUSCULATURE WITH HIP AND CORE (TRANSVERSE ABDOMINUS) MUSCULATURE. CORE STRENGTHENING. LION LE ROM, STRETCHING AND STRENGTHENING. TRAINING IN ABDOMINAL CAVITY PRESSURE MGMT WITH ADL'S. 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 Present symptoms: CHIEF COMPLAINT IS URINARY FREQUENCY. DIFFICULTY EMTYING BLADDER. BULGING IN VAGINAL AREA. SLIGHT OCCASSIONAL URINARY LEAKAGE WITH RECREATIONAL ACTIVITES, ENTERTAINMENT ACTIVITIES AND TRAVELING > 30 MIN FROM HOME. WEARING A PAD. Present since: A COUPLE YEARS Pain Scale: N/A - NOT CURRENTLY HAVING PAIN Is it getting better, worse or staying the same: STAYING THE SAME OR GETTING WORSE Commenced as a result of: NO APPARENT REASON Disturbed sleep: GETTING UP ABOUT 3 TIMES A NIGHT TO URINATE Previous history/Previous treatment: NONE Treatment this episode: PRESCRIBED MEDICINE BUT HASN'T TAKEN ANY LATELY AND PATIENT REPORTS SHE THINKS THEY WERE FOR PAIN. NOT HAVING PAIN NOW JUST FREQUENCY. Gait: NORMAL How long can you delay the need to urinate: NEEDED Prolapse (Falling out feeling): YES Frequency of Urination: EVERY 30 TO 60 MIN Ability to stop urine flow: MOST OF THE TIME YES Ability to initiate urine stream: NO Dyspareunia: NO Bowel Incontinence: NO Imaging: US - NORMAL PMH/Recent major surgery: SEE [facility] EMR - REVIEWED WITH PATIENT Objective Objective: Sitting/Standing Posture: POOR. FH. RSH'S. INCREASED KYPHOSIS. NO RELEVANT LATERAL SHIFT Other Observations: INDEP GAIT AND TRANSFERS Sensory deficit: LION LE LIGHT TOUCH SENSATION GROSSLY INTACT AND SYMMETRICAL ROM deficit: TIGHT LION HIP FLEXORS, HIP ADDUCTORS, HS'S AND GASTROC-SOLEUS COMPLEX'S. Motor deficit: LION LE'S GROSSLY 5/5 WITH MMT'ING Dural Signs: NEGATIVE LION LE'S. Lumbar mvmt loss: flex - NIL ext - MOD R SG - MIN L SG - MIN Core strength: FAIR FUNCTIONAL SCREEN: Incontinence Impact Questionnaire Score: 4 Urogenital Distress Inventory Score: 9 Goals Goal 1:: NORMALIZE VOIDING FREQUENCEY TO EVERY 2.5 TO 3.5 HOURS. Goal Time Frame: 6-8 Weeks Goal 2:: PATIENT WILL DEMONSTRATE/COMMUNICATE 10 CONSISTENT AND CONSECUTIVE 10 SECOND PELVIC FLOOR MUSCLE CONTRACTIONS TO DEMONSTRATE IMPROVED PELVIC FLOOR ENDURANCE. Goal Time Frame: 8-12 Weeks Goal 3:: DEVELOP HEALTHY FLUID INTAKE HABITS WITH FLUID INTAKE OF ? BODY WEIGHT IN OUNCES PER DAY AND 2/3 BEING WATER Goal Time Frame: 2-4 Weeks Goal 4:: PATIENT WILL BE INDEP WITH A HEP/HOME INSTRUCTIONS FOR CONTINUED IMPROVEMENT ONCE FORMAL PHYSICAL THERAPY CONCLUDES. Goal Time Frame: 8-12 Weeks Anticipated Interventions Patient/Client Instruction: Educate patient on: Condition, Plan of Care and Ris k Factors For the Purpose of:: To improve self management Therapeutic Exercise to Include: Strength training, Endurance training, Flexibilty training and Neuromotor development For the Purpose of:: To improve muscle performance and motor function, To increase tolerance to activity/condition/position and To improve ability of p hysical actions for home/community/work/leisure Text: Thank you for the opportunity to evaluate your patient. For Medicare and Medicare HMO plans, please review the plan of care and approve it. It will need to be FAXED BACK to us at [phone] for Medicare purposes. For Medicare only, by signing this I certify the plan of care. Please let me know if there are questions or concerns regarding this plan of care. Physician Signature: Date:
--- NOTE | 2022-12-22 11:10 | HP.PTDCSUM_ITS ---
Discharge Summary D/C summary: It has been my pleasure to treat DEVANG YOUSSEF referred by Dr. Tressa Love MD, with the diagnosis of CYSTOCELE, URINARY URGENCY AND URINARY FREQUENCY for a total of 7 visit(s). Discharge Date: Please see the following information for a summary of their discharge status. Subjective Subjective: PATIENT REPORTS SHE ISN'T HAVING ANY UI AND SHE ISN'T HAVING FREQUENCY OR URGENCY. SHE REPORTS COMPLIANCE WITH HER HEP AND FEELS READY TO STOP PT. Overall Improvement % Improvement: 90 Objective Objective/Function: ALL GOALS MET. PATIENT HAS DONE REALLY WELL WITH PELVIC FLOOR PHYSICAL THERPAY AND IS EXPRESSING APPRECIATION FOR THE HELP. PATIENT IS APPROPRIATE FOR DISCHARGE TO [facility]. AND PATIENT IS AGREEABLE. WRITTEN HEP PROVIDED. FUNCTIONAL SCREEN: Incontinence Impact Questionnaire Score: 1 Urogenital Distress Inventory Score: 0 Goals Goal 1:: NORMALIZE VOIDING FREQUENCEY TO EVERY 2.5 TO 3.5 HOURS. Goal Progress: Goal Met Goal 2:: PATIENT WILL DEMONSTRATE/COMMUNICATE 10 CONSISTENT AND CONSECUTIVE 10 SECOND PELVIC FLOOR MUSCLE CONTRACTIONS TO DEMONSTRATE IMPROVED PELVIC FLOOR ENDURANCE. Goal Progress: Goal Met Goal 3:: DEVELOP HEALTHY FLUID INTAKE HABITS WITH FLUID INTAKE OF ? BODY WEIGHT IN OUNCES PER DAY AND 2/3 BEING WATER Goal Progress: Progressing Goal 4:: PATIENT WILL BE INDEP WITH A HEP/HOME INSTRUCTIONS FOR CONTINUED IMPR OVEMENT ONCE FORMAL PHYSICAL THERAPY CONCLUDES. Goal Progress: Goal Met Plan Plan: D/C. D/C Information d/c sentence: If there are questions or concerns regarding this patient's physical therapy, please feel free to call me at [phone]. Thank you for the referral of this patient. Sincerely, Jacqueline Trevino, PT, Cert MDT Balance/Gait/Functional tests Improvement % Improvement: 90
== END 2022-12-22 19:00 | disposition home or self-care (01) ==
LOC: PT 10:30
PROVIDERS: PCP Family Medicine; Referring Provider Urology; Visit Provider Urology
DX: K59.02 Outlet dysfunction constipation (principal)
CPT/HCPCS: 97162; 97164; 97530

== ENCOUNTER 2022-12-31 12:11 | Emergency (ER) | payer OTHER, SELFPAY ==
[2022-12-31 12:12] VITALS: PULSE 58; RESP 16; TEMP 35.8; O2SAT 95; BMI 26.0
[2022-12-31 12:18] VITALS: BP 116/70
--- NOTE | 2022-12-31 13:15 | EKG12_ITS ---
Test Reason : CP Blood Pressure : / mmHG Vent. Rate : 055 BPM Atrial Rate : 055 BPM P-R Int : 190 ms QRS Dur : 110 ms QT Int : 476 ms P-R-T Axes : 064 058 058 degrees QTc Int : 455 ms Sinus bradycardia with frequent Premature ventricular complexes Otherwise normal ECG Confirmed by JUDY LUO, GABRIELLE ([id number]), restaurant expeditor RAIN ELIZABETH ([id number]) on 01/04/2023 2:17:35 PM Referred By: VERONIKA/NICOLÁS Confirmed By:GABRIELLE KIM MD
--- NOTE | 2022-12-31 13:28 | RAD_ITS ---
STUDY: X-RAY CHEST REASON FOR EXAM: Female, 72 years old. chest pain TECHNIQUE: Single AP portable view of the chest. COMPARISON: December 01, 2021 FINDINGS: The lungs are clear and expanded. There is no demonstrated pleural abnormality. Normal size heart. Normal mediastinum and kaitlin. Normal visualized pulmonary arteries. There is atherosclerotic calcification of the aortic arch with tortuosity. There are diffuse degenerative changes of the visualized thoracic spine. Normal visualized ribs, clavicles, and shoulders. There is no demonstrated abnormality of the visualized soft tissue structures of the upper abdomen. RAD/Chest 1 View (Portable) IMPRESSION: Degenerative changes, as described above. No demonstrated acute cardiopulmonary process. Electronically Signed: He Flanagan MD at 14:01 EDT ,
[2022-12-31 13:46] LABS: Absolute Lymphocyte Count 2.43 X10^3/uL (0.83-4.51); Absolute Neutrophil Count 3.7 X10^3/uL (2.0-7.7); Basophil# 0.04 X10^3/uL; Basophil% 0.6 % (0-1); Eosinophil# 0.07 X10^3/uL; Hematocrit 40.7 % (37-47); Hemoglobin 13.4 g/dL (12.0-15.0); Lymphocyte # 2.43 X10^3/ul (0.83-4.51); Lymphocyte % 35.3 % (19-41); Mean Corp Hgb Conc 32.9 g/dL (32-36); Mean Corpuscular Hgb 32.4 pg (27.0-32.0); Mean Corpuscular Volume 98.3 fL (81-99); Mean Platelet Vol. 11.2 fl (6.2-12.0); Monocyte# 0.66 X10^3/uL; Monocyte% 9.6 % (0-10); NRBC Flagged by Analyzer 0 % (0-5); Neutrophil # 3.67 X10^3/uL (2.7-7.7); Neutrophil % 53.4 % (47-70); Platelet Count 242 K/mm3 (150-450); RBC Distribution Width CV 11.9 % (11.6-14.6); RBC Distribution Width SD 43.4 fl (35.1-43.9); Red Blood Count 4.14 M/mm3 (4.2-5.4); White Blood Count 6.9 K/mm3 (4.4-11.0)
[2022-12-31 14:03] LABS: Anion Gap 5 (5-15); BUN 16 mg/dL (7-18); BUN/Creat Ratio 23.6 RATIO (10-20); Calcium,Total 8.9 mg/dL (8.5-10.1); Chloride 103 mmol/L (98-107); Creatinine, Serum 0.68 mg/dL (0.55-1.02); EST Glomerular Filtration Rate 91 mL/min (>60); Est Glom Filt Rate - Afr Amer 110 mL/min (>60); Estimated Creatinine Clearance 50.91 ml/min; Glucose 86 mg/dL (74-106); Potassium 3.9 mmol/L (3.5-5.1); Sodium Level 135 mmol/L (136-145); Troponin-I HS 5 pg/mL (3.0-54.0)
--- NOTE | 2022-12-31 14:15 | EDS_ITS ---
HPI History of Present Illness Chief Complaint: Chest Pain Narrative Narrative: 72-year-old female presenting with chest heaviness. She had this after having a procedure done today. Apparently has a leaky valve in her right leg and one of her veins and was being addressed by vascular specialist today and after she woke up from anesthesia she complained of some chest heaviness. She was under sedation with clonidine and Ativan which she took orally prior to the procedure. She states she did not receive any anesthesia otherwise. Procedure was finished and she was sent to the ER for evaluation. She states he has a history of PVCs for which she takes amiodarone 100 mg daily. She never had a heart attack. She had normal stress test in the past. Upon evaluation in the room the patient was asleep and resting comfortably. It took some time to wake her up due to the Ativan and clonidine but she is symptom-free. [facility] Medical History Anemia Anxiety Arthritis Cardiology follow-up encounter Chest pain Chest pain Easy bruising Gastric reflux High cholesterol History of echocardiogram History of Holter monitoring History of irregular heartbeat History of stress test Multiple premature ventricular complexes Nonobstructive atherosclerosis of coronary artery Normal stress echocardiogram Post-menopausal Syncope Wears glasses Home Medications multivitamin with folic acid 400 mcg tablet 1 tab PO DAILY vitamin 07/20/13 [History Last Taken 11/30/21] calcium citrate 200 mg calcium-vitamin D3 3.125 mcg (125 unit) tablet 1 tab PO DAILY supplement 06/23/19 [History Last Taken 11/30/21] cholecalciferol (vitamin D3) 50 mcg (2,000 unit) capsule 2,000 unit PO DAILY supplement 06/09/22 [History Last Taken Unknown] amiodarone 200 mg tablet 100 mg (1/2 x 200 mg) PO DAILY heart #45 tabs 06/10/22 [Rx Last Taken Unknown] atorvastatin 40 mg tablet 40 mg PO QHS chol #90 tabs 06/10/22 [Rx Last Taken Unknown] Allergy/AdvReac Type Severity Reaction Status Date / Time codeine AdvReac Unknown GI upset Verified 12/31/22 12:11 Family History Mother Heart disease Father Heart disease Surgical History H/O section H/O tubal ligation History of cholecystectomy History of ERCP History of hand surgery History of left heart catheterization (05/30/19) Hx of colonoscopy S/P cataract extraction S/P tonsillectomy Status post ablation of incompetent vein using laser Social History household members: spouse number of children: 3 current occupational status: employed and retired current occupation: [employer] history of recent travel: Yes Smoking Status: Never smoker alcohol intake: current alcohol intake frequency: holidays/special occasions only substance use type: does not use well-balanced diet: daily or most days what type of physical activity do you participate in: walking frequency: 3-4 times per week seatbelt use: always do you feel safe at home: Yes additional social history: - [facility] ED Constitutional Constitutional ED: Denies chills, fever(s) or sweats Eyes Eyes: Denies blurry vision or change in vision ENT ENT ED: Denies ear pain or sore throat Cardiovascular Cardiovascular: Reports as per HPI; Denies chest pain, palpitations or racing heartbeat Respiratory/Chest Respiratory/Chest: Denies cough, dyspnea or sputum Gastrointestinal Gastrointestinal: Denies abdominal pain, constipation, diarrhea, nausea or vomiting Genitourinary Genitourinary ED: Denies dysuria, hematuria or urinary frequency Musculoskeletal Musculoskeletal: Denies arthralgias, myalgias or neck pain Integumentary Denies abscess, Abrasions or rash Neurologic Neurologic: Denies headache(s), paresthesias or weakness Psychiatric Psychiatric: Denies anxiety, depression, suicidal ideation or suicidal thoughts Endocrine Endocrinology: Denies polydipsia or polyuria EXAM Physical Exam Const Vital Signs: 12/31/22 12:12 12/31/22 12:18 12/31/22 13:05 Temperature 96.4 F L Temperature Source Oral Pulse Rate 58 L Respiratory Rate 16 Respiratory Effort Blood Pressure 116/70 Blood Pressure Mean 85 Pulse Ox 95 Oxygen Delivery Method Room Air Room Air 12/31/22 12:15 Temperature Temperature Source Pulse Rate Respiratory Rate Respiratory Effort Normal Blood Pressure Blood Pressure Mean Pulse Ox Oxygen Delivery Method Positive well nourished General Appearance ED: NAD HEENT Reports moist mucous membranes normocephalic and atraumatic Eyes PERRL and EOMs intact bilaterally Chest Wall inspection of chest normal and palpation of chest normal Resp normal respiratory effort and clear to auscultation bilaterally Auscultation: Negative for rales, rhonchi or wheezes Cardio regular rate and regular rhythm GI normal to inspection, nondistended, normoactive bowel sounds Neuro oriented x3 and CN's II-XII intact bilaterally Sensorium / Orientation: awake and alert Psych mental status grossly normal Skin no rashes or lesions noted MDM MDM MDM Narrative Medical decision making narrative: Patient presenting with chest heaviness after waking up from a procedure. She states she was given Ativan and clonidine prior to the procedure. She is currently sleeping on initial examination. Differential includes ACS, pneumonia, pneumothorax, costochondritis, medication side effect, dehydration, electrolyte abnormalities. CBC was obtained to assess white blood cell count, hemoglobin, platelets. BMP to assess renal function, electrolytes, glucose. High-sensitivity troponin and EKG were obtained to assess for ischemia/dysrhythmia. Chest x-ray was obtained to rule out pneumonia. CBC and BMP were unremarkable. High-sensitivity troponin is 5. EKG shows sinus rhythm with PVCs at a ventricular rate of 55 bpm without sign of ischemic change. Chest x-ray my interpretation shows no acute process. Given patient's work-up was ultimately negative I feel she stable discharge home. I did consider PE however she is PERC negative. I feel patient stable for discharge at this time. Impression: 1. Chest pain Lab Data Labs: Laboratory Results - last 24 hr 12/31/22 12/31/22 11:55 13:05 WBC 6.9 RBC 4.14 L Hgb 13.4 Hct 40.7 MCV 98.3 MCH 32.4 H MCHC 32.9 RDW Std Deviation 43.4 RDW Coeff of Michele 11.9 Plt Count 242 MPV 11.2 Immature Gran % (Auto) 0.100 Neut % (Auto) 53.4 Lymph % (Auto) 35.3 Caldwell % (Auto) 9.6 Eos % (Auto) 1.0 Baso % (Auto) 0.6 Absolute Neuts (auto) 3.7 Absolute Lymphs (auto) 2.43 Nucleated RBC % 0 Sodium 135 L Potassium 3.9 Chloride 103 Carbon Dioxide 27.0 Anion Gap 5 BUN 16 Creatinine 0.68 Estim Creat Clear Calc 50.91 Est GFR (MDRD) Af Amer 110 Est GFR (MDRD) Non-Af 91 BUN/Creatinine Ratio 23.6 H Glucose 86 Calcium 8.9 Troponin I High Sens 5 Radiography Diagnostic Testing: Clinical Impression(s) from Imaging Studies Chest X-Ray 12/31/22 13:28 IMPRESSION: Degenerative changes, as described above. No demonstrated acute cardiopulmonary process. Electronically Signed: He Flanagan MD at 14:01 EDT Reading Location ID and State: [facility] / [place] , Service support , Discharge Plan Triage Chief Complaint: Chest Pain ED Provider: Florentin Campoverde Dx/Rx/DC Orders Prescriptions: No Action calcium citrate-vitamin D3 200-125 mg-unit tablet 1 tab PO DAILY multivitamin with folic acid 1 TABLET tablet 1 tab PO DAILY cholecalciferol (vitamin D3) 50 mcg (2,000 unit) capsule 2,000 unit PO DAILY amiodarone 200 mg tablet 100 mg PO DAILY Qty: 45 3RF atorvastatin 40 mg tablet 40 mg PO QHS Qty: 90 3RF Primary Care Provider: Shimon Potts Referrals: Shimon Potts MD [Primary Care Provider] -
[2022-12-31 14:39] VITALS: BP 128/78; PULSE 87; RESP 16; O2SAT 99
== END 2022-12-31 14:40 | disposition home or self-care (01) ==
PROVIDERS: Emergency Provider Student in an Organized Health Care Education/Training Program; PCP Family Medicine; Visit Provider Student in an Organized Health Care Education/Training Program
DX: R07.9 Chest pain, unspecified (principal); E78.00 Pure hypercholesterolemia, unspecified; I25.10 Atherosclerotic heart disease of native coronary artery without angina pectoris
CPT/HCPCS: 71045; 80048; 84484; 85025; 93005; 99285

== ENCOUNTER → 2023-07-01 | Outpatient (CLI) | payer OTHER, SELFPAY ==
--- NOTE | 2023-07-01 09:41 | BI_ITS ---
MAMMOGRAPHY - BILATERAL SCREENING REASON FOR EXAM: Female, 72 years old. Routine annual screening examination. PERTINENT HISTORY: Mother with breast cancer. TECHNIQUE: Digital bilateral breast stephania (3D mammographic acquisition) in the CC and MLO projections. 2-D mediolateral oblique (MLO) and craniocaudad (CC) views of both breasts were obtained. CAD: Full Field Digital Mammography with Computer Added Detection was performed. COMPARISON: Comparison is made with prior study June 25, 2022 and April 12, 2019. FINDINGS: Breast Composition: There are scattered areas of fibroglandular density. There are no dominant masses or suspicious calcifications. Stable scattered bilateral calcifications. No focal cluster is seen. No other significant abnormalities are identified. There has been no significant change since the prior study. BI/SCRN MAMM (CAD)W/STEPHANIA BILAT IMPRESSION: Stable bilateral screening mammogram. Yearly follow-up mammogram recommended. (A) ASSESSMENT CATEGORY: BIRADS Category 2: Benign. A letter regarding these results will be sent to the patient by the facility within 30 days. Approximately 10% of breast cancers are not detected by mammography. A normal mammogram should not delay biopsy of a clinically suspicious abnormality. [id number] Electronically Signed: Andrew Yee MD at 10:34 EDT ,
== END | disposition home or self-care (01) ==
LOC: OPBI 09:41
PROVIDERS: PCP Family Medicine; Referring Provider Family Medicine; Visit Provider Family Medicine
DX: Z12.31 Encounter for screening mammogram for malignant neoplasm of breast (principal); Z80.3 Family history of malignant neoplasm of breast
CPT/HCPCS: 77063; 77067

== ENCOUNTER 2024-04-25 10:30 | Outpatient (RCR) | payer OTHER, SELFPAY ==
--- NOTE | 2023-12-14 13:17 | HP.PTEVAL ---
Patient's Visit Information Visit Information Visit Information: DEVANG YOUSSEF is a 72 year old F referred to Physical Therapy by Dr. Shimon Potts MD with a diagnosis of posture abnormality. Date of Evaluation: 12/14/23 Physical Therapist: Jim Feldman, PT, ATC Visit Plan Frequency: 1x/Week Duration: 4 Weeks Plan: core strengthening, scapular stabilization, postural awareness, spinal strengthening, UE strengthening Subjective Subjective: Pt reports she has osteopenia and has struggled with neck pain and pain across the top of her shoulders. She states she has started to walk with forward head posture and rounded shoulders. Pt reports onset of her neck pain is random, no specific action causes it. Pt reports has difficulty pulling weeds, making dinner, and sitting in a chair without back support for long periods of time when she does have neck pain. No X-rays or MRIs. Pt reports she wants to walk and sit correctly without being hunched forward; states she wants to have proper posture and prevent her posture from getting worse. Pt reports taking Tylenol to relieve her pain. States the pain sometimes wakes her up at night. Pt reports pain is 3/10 sitting here at rest today and is 4-5/10 at its worst. Pain Neck: Pain Intensity (Out of 10): 3 Pain Intensity Range: 5 Objective Objective: NEURO: sensation WNL to light touch; DTR bicep 2/3 Posture: forward head, rounded shoulders, decreased lumbar lordosis MMT: L shoulder flex= 4-/5, abd= 3+/5 ; L elbow flex= 4/5 ,ext= 5/5 ; R shoulder flex= 3+/5 , abd= 3+/5 ; R elbow flex= 4/5 ,ext= 4+/5 6 MWT: Pt ambulated 1,020 ft Balance/Special Test Scores Oswestry Low Back Score: 0 Goals Goal 1:: Pt will decrease pain by 50% to aid with sleep. Goal Time Frame: 2-4 Weeks Goal 2:: Pt will be I with HEP. Goal Time Frame: 2-4 Weeks Goal 3:: Pt will increase R UE strength by one muscle grade to aid with helping to improve dynamic posture throughout her workday. Goal Time Frame: 2-4 Weeks Goal 4:: Pt will verbally and physically display proper posture throughout treatment. Goal Time Frame: 2-4 Weeks Rehabilitation Potential Physical Therapy Diagnosis: poor standing and seated posture, decreased spinal strength Rehabilitation Potential: Good Anticipated Interventions Patient/Client Instruction: Educate patient on: Plan of Care Therapeutic Exercise to Include: Strength training, Body mechanics, Dynamic Lumbar Stabilization and Scapular Strength/Stabilization For the Purpose of:: To decrease pain, To improve muscle performance and motor function and To increase tolerance to activity/condition/position Text: Thank you for the opportunity to evaluate your patient. For Medicare and Medicare HMO plans, please review the plan of care and approve it. It will need to be FAXED BACK to us at [phone] for Medicare purposes. For Medicare only, by signing this I certify the plan of care. Please let me know if there are questions or concerns regarding this plan of care. Physician Signature: Date:
--- NOTE | 2024-02-25 09:30 | HP.PTEVAL2_ITS ---
Patient's Visit Information Visit Information Visit Information: DEVANG YOUSSEF is a 73 year old F referred to Physical Therapy by Dr. Shimon Potts MD with a diagnosis of L knee pain. Date of Evaluation: 02/25/24 Physical Therapist: Jim Feldman, PT, ATC Visit Plan Frequency: 2-3x /Week Duration: 2-4 Weeks Plan: L knee stretching and strengthening, balance and proprio, core strengthening, nustep, and HEP Subjective Subjective: Pt reports she awoke 3 weeks ago and noticed increased L knee pain. Pt reports the pain had an insidious onset in nature. Pt notes she has been taking an antiinflammatory for the past week which has decreased her pain. Pt notes the pain is on the medial aspect of L knee and will radiate superiorly and distally in her L knee. Pt reports she did have a meniscal repair in one of her knees 20 years ago. Pt notes intermittent sleep difficulty secondary to her pain. Pt reports she is traveling out of the country in 3 weeks and would like to get rid of this pain. Pt reports she has stairs at home, and has to negotiate them very slowly. Pt notes stairs increase her pain. Pt denies tingling or numbness in L knee at this time. No diagnostic tests at this time. 2/10 pain while sitting here at rest, 6/10 at worst (taking her dog outside, and by the end of the day) Pain L knee pain: Intensity: 2 Pain Intensity Range: 6 Objective Objective: Neuro: B LE sensation is WNL to light touch. Palpation: Pt has pain on the medial joint line of R knee. No obvious deformity noted today Girth: R knee 42 cm, L knee 44 cm ROM: R knee ROM 0-145 degrees ; L knee ROM 0-7-115 degrees MMT: R knee flex= 38, ext= 48 #F; L knee flex= 20, ext= 18 #F Special tests: Pos Mcmurrays and apley compression tests Goals Goal 1:: Decrease L knee pain x 50% to aid with sleep Goal Time Frame: 4-6 Weeks Goal 2:: Increase L knee strength x 10#F to aid with stair negotiation Goal Time Frame: 4-6 Weeks Goal 3:: Increase L knee ROM x 20 degrees to aid with squatting type of activity Goal Time Frame: 4-6 Weeks Goal 4:: I with HEP Goal Time Frame: 4-6 Weeks Rehabilitation Potential Physical Therapy Diagnosis: Pt has L knee pain, weakness, and limited ROM Rehabilitation Potential: Good Anticipated Interventions Patient/Client Instruction: Educate patient on: Condition and Plan of Care For the Purpose of:: To improve self management Therapeutic Exercise to Include: Strength training, Balance training, Gait and locomotor training and Dynamic Lumbar Stabilization For the Purpose of:: To decrease pain, To increase ROM and To improve muscle performance and motor function Cryotherapy (ice pack, ice massage): Yes For the Purpose of:: To decrease pain text: Thank you for the opportunity to evaluate your patient. For Medicare and Medicare HMO plans, please review the plan of care and approve it. It will need to be FAXED BACK to us at [phone] for Medicare purposes. For Medicare only, by signing this I certify the plan of care. Please let me know if there are questions or concerns regarding this plan of care. Physician Signature: Date:
--- NOTE | 2024-04-25 11:06 | HP.PTDCSUM ---
Discharge Summary D/C summary: It has been my pleasure to treat DEVANG YOUSSEF referred by Dr. Shimon Potts MD, with the diagnosis of posture abnormality for a total of 5 visit(s). Discharge Date: Please see the following information for a summary of their discharge status. Subjective Subjective: I think I am ready to exercise on my own Pain Neck: Pain Intensity (Out of 10): 1 Objective Objective/Function: Pt is now I with HEP. Goals Goal 1:: Pt will decrease pain by 50% to aid with sleep. Goal 2:: Pt will be I with HEP. Goal 3:: Pt will increase R UE strength by one muscle grade to aid with helping to improve dynamic posture throughout her workday. Goal 4:: Pt will verbally and physically display proper posture throughout treatment. Plan Plan: Follow up or discharge in one month D/C Information d/c sentence: If there are questions or concerns regarding this patient's physical therapy, please feel free to call me at [phone]. Thank you for the referral of this patient. Sincerely, Jim Feldman, PT, ATC Balance/Gait/Functional tests Balance/Special Test Scores Oswestry Low Back Score: 0 Lower Extremity Functional Score: 68
== END 2024-04-25 13:51 | disposition home or self-care (01) ==
LOC: PT 10:30
PROVIDERS: PCP Family Medicine; Referring Provider Family Medicine; Visit Provider Family Medicine
DX: R29.3 Abnormal posture (principal); M85.80 Other specified disorders of bone density and structure, unspecified site
CPT/HCPCS: 97110; 97161; 97530

== ENCOUNTER → 2024-08-03 | Outpatient (CLI) | payer OTHER, SELFPAY ==
--- NOTE | 2024-08-03 14:13 | RAD_ITS ---
PROCEDURE: CHEST PA AND LATERAL 08/03/2024 REASON FOR EXAM: SOB TECHNIQUE: Frontal and lateral views of the chest. COMPARISON: 12/31/2022 FINDINGS: The lungs appear clear. Pulmonary vascularity appears within limits. No pleural effusion. The cardiac and mediastinal contours appear within limits. Mild rightward curvature. A few surgical clips right upper quadrant possible cholecystectomy. RAD/Chest PA and Lateral IMPRESSION: No evidence of acute disease. Reading Location: [id number]
== END | disposition home or self-care (01) ==
LOC: RAD 14:09
PROVIDERS: PCP Family Medicine; Referring Provider Internal Medicine Cardiovascular Disease; Visit Provider Internal Medicine Cardiovascular Disease
DX: R07.89 Other chest pain (principal); R06.02 Shortness of breath
CPT/HCPCS: 71046

== ENCOUNTER → 2024-08-31 | Outpatient (CLI) | payer OTHER, SELFPAY ==
--- NOTE | 2024-08-31 13:26 | BI_ITS ---
EXAM: SCRN MAMM (CAD)W/STEPHANIA BILAT DATE: 08/31/2024 CLINICAL HISTORY: F, Age 73 y/o , SCREENING FOR BREAST CANCER History of mother with breast cancer. Several prior needle biopsies BREAST CANCER RISK ASSESSMENT: Not assessed. TECHNIQUE: Bilateral screening digital breast tomosynthesis with 2D and 3D images. Computer aided detection. COMPARISON: Prior exam(s) dated July 01, 2023.. FINDINGS: TISSUE DENSITY: The breast tissue is composed of scattered area of fibroglandular density. Bilateral Breast Mammographic Findings: No significant masses, calcifications or other abnormalities are identified. No suspicious masses, areas of developing architectural distortion, or suspicious calcifications. There has been no significant interval change. BI/SCRN MAMM (CAD)W/STEPHANIA BILAT IMPRESSION: OVERALL FINAL ASSESSMENT: BIRADS 1 NEGATIVE RECOMMENDATION: Routine annual follow-up in 1 Year A letter with findings and recommendations will be mailed to the patient. Reading Location: [place] [id number]
== END | disposition home or self-care (01) ==
LOC: OPBI 13:25
PROVIDERS: PCP Family Medicine; Referring Provider Family Medicine; Visit Provider Family Medicine
DX: Z12.31 Encounter for screening mammogram for malignant neoplasm of breast (principal)
CPT/HCPCS: 77063; 77067